=== PATIENT | female | born 1960 | race Caucasian/White ===

== ENCOUNTER 2017-03-30 18:18 | Emergency (ER) | payer OTHER, MEDICAID ==
[~2017-03-30] VITALS: Ht 170.2 cm; Wt 120.2 kg
[~2017-03-30 18:18] MED LIST: ALBUTEROL-200 PUFFS/ IH; ALBUTEROL2.5 MG/NEB IN; BENZONATATE100 MG PO; CEPHALEXIN MON500 MG PO; CIPRO 500MG TA500 MG PO; DOXYCYCLINE HY100 M1 PO; ELIMITE 5%60 GM/TUBE EX; ETODOLAC400 MG PO; FIORICET 325 MG1 TAB; FLEXERIL10 MG PO; HYDROCHLOROTH12.5 M1 PO; HYDROCORTISONE2.51 TP; HYDROXYZINE PAM50 MG PO; IBU-8800 MG PO; KEFLEX 500MG.500 MG PO; LORTAB 5/500 501 TAB PO; MEDROL 4MG. DOSE4 MG PO; MULTIVITAMIN1 TAB PO; NAPROSYN500 M1 PO; NAPROXEN SODIU500 MG PO; PREDNISONE 10MG10 MG PO; PROPRANOLOL HCL60 M1 PO; PROPRANOLOL HYD60 M1 PO; PYRIDIATE200 MG PO; PYRIDIUM 200MG200 MG PO; SEPTRA DS 800 M1 TAB PO; SUMATRIPTAN SU100 M1 PO; SUMATRIPTAN SU100 MG PO; TYLENOL W/CODEI1 TA2 PO; VALIUM 10MG TAB10 MG PO; VISTARIL25 M1 PO; VOLTAREN75 MG PO; ZANTAC 150150 MG PO
--- OUTSIDE RECORDS SUMMARY | 2017-03-30 18:59 | External Medical Summary Rpt ---
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 03 93 ME 50 06 06 14 7 RI 88 RI Ac TR 11 -0 -0 .0 TE 67 SH ti ON 10 9- 9- 00 58 ER ve ID 33 20 20 AI AZ 40 11 11 D RI OL 1 PH CH E AR AR 50 MA D 0 CY MG 03 TA 93 BL 8 ET # 03 93 64 05 05 5 15 20 RI 88 MO Ac 45 -2 -2 .0 TE 43 SE ti 50 3- 3- 00 89 S ve [address] 39 11 11 D EP 4 PH HE AR N MA A CY 03 93 8 # 03 93 HY 67 05 05 5 90 30 RI [address] 40 -2 -2 .0 TE 43 SE ti OX 50 3- 3- 00 93 S ve YZ [address] IN 71 11 11 D EP E 0 PH HE HC AR N L MA A 50 CY MG 03 93 TA 8 BL # ET 03 93 UT 23 05 05 5 30 30 RI 88 MO Ac OP 15 -2 -2 .0 TE 43 SE ti RA 50 3- 3- 00 94 S ve NO [address] LO 21 11 11 D EP L 0 PH HE 40 AR N MA A MG CY TA 03 BL 93 ET 8 # 03 93 RA 00 05 05 11 60 30 RI 88 MO Ac NI 17 -2 -2 .0 TE 43 SE ti TI 24 3- 3- 00 97 S ve DI [address] NE 74 11 11 D EP 9 PH HE 15 AR N 0 MA A MG CY TA 03 BL 93 ET 8 # 03 93 FL 50 05 05 2 30 30 RI 88 MO Ac UO 11 -2 -2 .0 TE 43 SE ti XE 10 3- 3- 00 91 S ve TI [address] NE 70 11 11 D EP 1 PH HE HC AR N L MA A 10 CY MG 03 93 CA 8 PS # UL 03 E 93 00 10 05 3 9. 30 RI 85 EN Ac 09 -0 -0 00 TE 23 GL ti 30 1- 3- 0 75 AN ve 22 20 20 AI D 49 10 11 D SH 0 PH AR AR I MA L CY 03 93 8 # 03 93 RA 00 10 04 5 60 30 RI 85 EN Ac NI 17 -0 -2 .0 TE 23 GL ti TI 24 1- 5- 00 60 AN ve DI 35 20 20 AI D NE 74 10 11 D SH 9 PH AR 15 AR I 0 MA L MG CY TA 03 BL 93 ET 8 # 03 93 59 10 04 5 8. 25 RI 85 EN Ac 31 -0 -2 50 TE 23 GL ti 00 1- 5- 0 62 AN ve 57 20 20 AI D 92 10 11 D SH 0 PH AR AR I MA L CY 03 93 8 # 03 93 UT 23 10 04 5 30 30 RI 85 EN Ac OP 15 -0 -2 .0 TE 23 GL ti RA 50 1- 5- 00 74 AN ve NO 11 20 20 AI D LO 21 10 11 D SH L 0 PH AR 40 AR I MA L MG CY TA 03 BL 93 ET 8 # 03 93 FU 63 02 04 1 30 30 RI 87 EN Ac RO 30 -1 -2 .0 TE 13 GL ti SE 40 8- 5- 00 03 AN ve WI 62 20 20 AI D DE 41 11 11 D SH 0 PH AR 20 AR I MA L MG CY TA 03 BL 93 ET 8 # 03 93 PE 00 04 04 5 59 1 RI 88 EN Ac RM 47 -2 -2 .0 TE 07 GL ti ET 25 5- 5- 00 00 AN ve HR 24 20 20 AI D IN 26 11 11 D SH 7 PH AR 1% AR I MA L LO CY TI ON 03 93 8 # 03 93 HY 67 10 04 5 90 30 RI [address] 40 -0 -2 .0 TE 23 GL ti OX 50 1- 5- 00 10 AN ve YZ 57 20 20 AI D IN 71 10 11 D SH E 0 PH AR HC AR I L MA L 50 CY MG 03 93 TA 8 BL # ET 03 93 AL 00 06 04 9 18 30 YO 21 WR Ac BU 48 -2 -1 0. UR 55 IG ti TE 79 1- 8- 00 8 HT ve RO 50 20 20 0 PH L 16 10 11 AR AR ERNST 0 MA DY L CY C 2. 5 MG /3 ML SO LN PE 00 02 03 59 1 RI 87 EN Ac RM 47 -2 -2 .0 TE 64 GL ti ET 25 5- 4- 00 60 AN ve HR 24 20 20 AI D IN 26 11 11 D SH 7 PH AR 1% AR I MA L LO CY TI ON 03 93 8 # 03 93 HY 00 01 03 2 30 10 RI [address] 16 -2 -2 .0 TE 64 SE ti OC 80 5- 4- 00 58 S ve OR [address] TI 03 11 11 D EP SO 1 PH HE NE AR N MA A 2. CY 5% 03 CR 93 EA 8 M # 03 93 CY 00 03 03 30 10 RI 87 EN Ac CL 37 -1 -1 .0 TE 56 GL ti OB 80 8- 8- 00 80 AN ve EN 75 20 20 AI D ZA 11 11 11 D SH UT 0 PH AR IN AR I E MA L 10 CY MG 03 93 TA 8 BL # ET 03 93 FL 00 03 03 2 1. 1 RI 87 EN Ac UC 17 -1 -1 00 TE 56 GL ti ON 25 8- 8- 0 81 AN ve AZ 41 20 20 AI D OL 21 11 11 D SH E 1 PH AR 15 AR I 0 MA L MG CY TA 03 BL 93 ET 8 # 03 93 AB 00 02 02 2. 10 RI 87 WR Ac RE 76 -2 -2 00 TE 15 IG ti VA 60 1- 1- 0 91 HT ve 80 20 20 AI 10 15 11 11 D AR % 5 PH DY CR AR C EA MA M CY 03 93 8 # 03 93 TE 00 02 02 45 7 RI 87 EN Ac RC 59 -1 -1 .0 TE 13 GL ti ON 13 8- 8- 00 02 AN ve AZ 19 20 20 AI D OL 68 11 11 D SH E 9 PH AR 0. AR I 4% MA L CY CR EA 03 M 93 8 # 03 93 FU 63 02 02 1 30 30 RI 87 EN Ac RO 30 -1 -1 .0 TE 13 GL ti SE 40 8- 8- 00 03 AN ve WI 62 20 20 AI D DE 41 11 11 D SH 0 PH AR 20 AR I MA L MG CY TA 03 BL 93 ET 8 # 03 93 PE 00 02 02 2 59 1 RI 87 RI Ac RM 47 -1 -1 .0 TE 13 SH ti ET 25 8- 8- 00 10 ER ve HR 24 20 20 AI IN 26 11 11 D RI 7 PH CH 1% AR AR MA D LO CY TI ON 03 93 8 # 03 93 AL 00 06 02 9 18 30 YO 21 WR Ac BU 48 -2 -1 0. UR 55 IG ti TE 79 1- 6- 00 8 HT ve RO 50 20 20 0 PH L 16 10 11 AR AR ERNST 0 MA DY L CY C 2. 5 MG /3 ML SO LN HY 67 10 01 5 90 30 RI [address] 40 -0 -2 .0 TE 23 GL ti OX 50 1- 1- 00 10 AN ve YZ 57 20 20 AI D IN 71 10 11 D SH E 0 PH AR HC AR I L MA L 50 CY MG 03 93 TA 8 BL # ET 03 93 RA 53 10 01 5 60 30 RI 85 EN Ac NI 74 -0 -2 .0 TE 23 GL ti TI 60 1- 1- 00 60 AN ve DI 25 20 20 AI D NE 36 10 11 D SH 0 PH AR 15 AR I 0 MA L MG CY TA 03 BL 93 ET 8 # 03 93 59 10 01 5 8. 25 RI 85 EN Ac 31 -0 -2 50 TE 23 GL ti 00 1- 1- 0 62 AN ve 57 20 20 AI D 92 10 11 D SH 0 PH AR AR I MA L CY 03 93 8 # 03 93 UT 50 10 01 5 30 30 RI 85 EN Ac OP 11 -0 -2 .0 TE 23 GL ti RA 10 1- 1- 00 74 AN ve NO 46 20 20 AI D LO 90 10 11 D SH L 3 PH AR 40 AR I MA L MG CY TA 03 BL 93 ET 8 # 03 93 00 10 01 3 9. 30 RI 85 EN Ac 09 -0 -2 00 TE 23 GL ti 30 1- 1- 0 75 AN ve 22 20 20 AI D 49 10 11 D SH 0 PH AR AR I MA L CY 03 93 8 # 03 93 SM 49 11 01 3 59 1 RI 85 RI Ac 34 -2 -2 .0 TE 94 SH ti LI 80 2- 1- 00 41 ER ve CE 46 20 20 AI 03 10 11 D RI TR 4 PH CH EA AR AR TM MA D EN CY T PE 03 RM 93 ET 8 HR # IN 03 93 CE 00 01 01 40 10 RI 86 WE Ac PH 14 -2 -2 .0 TE 74 HR ti AL 39 1- 1- 00 29 MA ve EX 89 20 20 AI N IN 70 11 11 D II 1 PH I 50 AR WI 0 MA LL MG CY IA M CA 03 E PS 93 UL 8 E # 03 93 HY 00 01 01 28 7 RI [address] 16 -2 -2 .3 TE 74 HR ti OC 80 1- 1- 50 30 MA ve OR 14 20 20 AI N TI 63 11 11 D II SO 0 PH I NE AR WI MA LL 2. CY IA 5% M 03 E OI 93 NT 8 ME # NT 03 93 SM 49 11 01 3 59 1 RI 85 RI Ac 34 -2 -0 .0 TE 94 SH ti LI 80 2- 3- 00 41 ER ve CE 46 20 20 AI 03 10 11 D RI TR 4 PH CH EA AR AR TM MA D EN CY T PE 03 RM 93 ET 8 HR # IN 03 93 AL 00 06 12 9 18 30 YO 21 WR Ac BU 48 -2 -2 0. UR 55 IG ti TE 79 1- 0- 00 8 HT ve RO 50 20 20 0 PH L 16 10 10 AR AR ERNST 0 MA DY L CY C 2. 5 MG /3 ML SO LN 60 12 12 12 3 RI 86 EN Ac 25 -1 -1 0. TE 18 GL ti 80 0- 0- 00 57 AN ve 23 20 20 0 AI D 91 10 10 D SH 6 PH AR AR I MA L CY 03 93 8 # 03 93 AZ 00 12 12 6. 5 RI 86 EN Ac IT 78 -1 -1 00 TE 18 GL ti HR 11 0- 0- 0 58 AN ve OM 49 20 20 AI D YC 66 10 10 D SH IN 8 PH AR AR I 25 MA L 0 CY MG 03 TA 93 BL 8 ET # 03 93 FL 00 10 11 1 1. 1 RI 85 EN Ac UC 17 -0 -2 00 TE 34 GL ti ON 25 7- 7- 0 38 AN ve AZ 41 20 20 AI D OL 21 10 10 D SH E 1 PH AR 15 AR I 0 MA L MG CY TA 03 BL 93 ET 8 # 03 93 SM 49 11 11 3 59 1 RI 85 RI Ac 34 -2 -2 .0 TE 94 SH ti LI 80 2- 7- 00 41 ER ve CE 46 20 20 AI 03 10 10 D RI TR 4 PH CH EA AR AR TM MA D EN CY T PE 03 RM 93 ET 8 HR # IN 03 93 SM 49 11 11 3 59 1 RI 85 RI Ac 34 -2 -2 .0 TE 94 SH ti LI 80 2- 3- 00 41 ER ve CE 46 20 20 AI 03 10 10 D RI TR 4 PH CH EA AR AR TM MA D EN CY T PE 03 RM 93 ET 8 HR # IN 03 93 HY 68 10 11 5 90 30 RI [address] 46 -0 -0 .0 TE 23 GL ti OX 20 1- 8- 00 10 AN ve YZ 36 20 20 AI D IN 20 10 10 D SH E 1 PH AR HC AR I L MA L 50 CY MG 03 93 TA 8 BL # ET 03 93 RA 00 10 11 5 60 30 RI 85 EN Ac NI 17 -0 -0 .0 TE 23 GL ti TI 24 1- 8- 00 60 AN ve DI 35 20 20 AI D NE 74 10 10 D SH 9 PH AR 15 AR I 0 MA L MG CY TA 03 BL 93 ET 8 # 03 93 59 10 11 5 8. 25 RI 85 EN Ac 31 -0 -0 50 TE 23 GL ti 00 1- 8- 0 62 AN ve 57 20 20 AI D 92 10 10 D SH 0 PH AR AR I MA L CY 03 93 8 # 03 93 UT 50 10 11 5 30 30 RI 85 EN Ac OP 11 -0 -0 .0 TE 23 GL ti RA 10 1- 8- 00 74 AN ve NO 46 20 20 AI D LO 90 10 10 D SH L 3 PH AR 40 AR I MA L MG CY TA 03 BL 93 ET 8 # 03 93 00 10 11 3 9. 30 RI 85 EN Ac 09 -0 -0 00 TE 23 GL ti 30 1- 8- 0 75 AN ve 22 20 20 AI D 49 10 10 D SH 0 PH AR AR I MA L CY 03 93 8 # 03 93 AL 00 06 10 9 18 30 YO 21 WR Ac BU 48 -2 -1 0. UR 55 IG ti TE 79 1- 9- 00 8 HT ve RO 50 20 20 0 PH L 16 10 10 AR AR ERNST 0 MA DY L CY C 2. 5 MG /3 ML SO LN FL 00 10 10 1 1. 1 RI 85 EN Ac UC 17 -0 -1 00 TE 34 GL ti ON 25 7- 1- 0 38 AN ve AZ 41 20 20 AI D OL 21 10 10 D SH E 1 PH AR 15 AR I 0 MA L MG CY TA 03 BL 93 ET 8 # 03 93 HY 68 10 10 5 90 30 RI [address] 46 -0 -0 .0 TE 23 GL ti OX 20 1- 1- 00 10 AN ve YZ 36 20 20 AI D IN 20 10 10 D SH E 1 PH AR HC AR I L MA L 50 CY MG 03 93 TA 8 BL # ET 03 93 RA 00 10 10 5 60 30 RI 85 EN Ac NI 17 -0 -0 .0 TE 23 GL ti TI 24 1- 1- 00 60 AN ve DI 35 20 20 AI D NE 74 10 10 D SH 9 PH AR 15 AR I 0 MA L MG CY TA 03 BL 93 ET 8 # 03 93 59 10 10 5 8. 25 RI 85 EN Ac 31 -0 -0 50 TE 23 GL ti 00 1- 1- 0 62 AN ve 57 20 20 AI D 92 10 10 D SH 0 PH AR AR I MA L CY 03 93 8 # 03 93 UT 50 10 10 5 30 30 RI 85 EN Ac OP 11 -0 -0 .0 TE 23 GL ti RA 10 1- 1- 00 74 AN ve NO 46 20 20 AI D LO 90 10 10 D SH L 3 PH AR 40 AR I MA L MG CY TA 03 BL 93 ET 8 # 03 93 00 03 09 1 9. 30 RI 82 EN Ac 09 -2 -2 00 TE 72 GL ti 30 6- 3- 0 39 AN ve 22 20 20 AI D 49 10 10 D SH 0 PH AR AR I MA L CY 03 93 8 # 03 93 AC 00 09 09 0 24 3 CL 22 SC Ac ET 40 -0 -0 .0 IN 27 HU ti AM 60 7- 7- 00 IC 10 LS ve IN 48 20 20 TA OP 40 10 10 PH D HE 1 AR CA N- MA MP CO CY BE D LL #3 LL K C TA BL ET AC 00 09 09 24 2 RI 84 SC Ac ET 60 -0 -0 .0 TE 84 HU ti AM 32 3- 3- 00 65 LS ve IN 33 20 20 AI TA OP 83 10 10 D D HE 2 PH CA N- AR MP CO MA BE D CY LL #3 K 03 TA 93 BL 8 ET # 03 93 59 08 08 5 8. 30 RI 84 EN Ac 31 -2 -2 50 TE 72 GL ti 00 6- 6- 0 85 AN ve 57 20 20 AI D 92 10 10 D SH 0 PH AR AR I MA L CY 03 93 8 # 03 93 RA 00 08 08 5 60 30 RI 84 EN Ac NI 17 -2 -2 .0 TE 72 GL ti TI 24 6- 6- 00 86 AN ve DI 35 20 20 AI D NE 74 10 10 D SH 9 PH AR 15 AR I 0 MA L MG CY TA 03 BL 93 ET 8 # 03 93 HY 67 08 08 3 30 10 [address] 40 -2 -2 .0 TE 72 GL ti OX 50 6- 6- 00 89 AN ve YZ 57 20 20 AI D IN 71 10 10 D SH E 0 PH AR HC AR I L MA L 50 CY MG 03 93 TA 8 BL # ET 03 93 FL 00 08 08 2. 2 RI 84 EN Ac UC 17 -2 -2 00 TE 72 GL ti ON 25 6- 6- 0 93 AN ve AZ 41 20 20 AI D OL 21 10 10 D SH E 1 PH AR 15 AR I 0 MA L MG CY TA 03 BL 93 ET 8 # 03 93 AL 00 06 08 9 18 30 YO 21 WR Ac BU 48 -2 -2 0. UR 55 IG ti TE 79 1- 6- 00 8 HT ve RO 50 20 20 0 PH L 16 10 10 AR AR ERNST 0 MA DY L CY C 2. 5 MG /3 ML SO LN PE 00 08 08 59 1 RI 84 EN Ac RM 47 -0 -1 .0 TE 48 GL ti ET 25 9- 2- 00 95 AN ve HR 24 20 20 AI D IN 26 10 10 D SH 7 PH AR 1% AR I MA L LO CY TI ON 03 93 8 # 03 93 00 03 08 1 9. 30 RI 82 EN Ac 09 -2 -1 00 TE 72 GL ti 30 6- 0- 0 39 AN ve 22 20 20 AI D 49 10 10 D SH 0 PH AR AR I MA L CY 03 93 8 # 03 93 UT 50 05 08 2 30 30 RI 83 RI Ac OP 11 -1 -1 .0 TE 33 SH ti RA 10 1- 0- 00 92 ER ve NO 46 20 20 AI LO 90 10 10 D RI L 3 PH CH 40 AR AR MA D MG CY TA 03 BL 93 ET 8 # 03 93 PE 00 08 08 59 1 RI 84 EN Ac RM 47 -0 -0 .0 TE 48 GL ti ET 25 9- 9- 00 95 AN ve HR 24 20 20 AI D IN 26 10 10 D SH 7 PH AR 1% AR I MA L LO CY TI ON 03 93 8 # 03 93 PE 00 07 07 1 59 1 RI 79 EN Ac RM 47 -3 -2 .0 TE 39 GL ti ET 25 1 8- 00 44 AN ve HR 24 20 20 AI D IN 26 09 10 D SH 7 PH AR 1% AR I MA L LO CY TI ON 03 93 8 # 03 93 UT 50 05 07 2 30 30 RI 83 RI Ac OP 11 -1 -1 .0 TE 33 SH ti RA 10 1- 3- 00 92 ER ve NO 46 20 20 AI LO 90 10 10 D RI L 3 PH CH 40 AR AR MA D MG CY TA 03 BL 93 ET 8 # 03 93 RA 00 03 07 5 60 30 RI 82 EN Ac NI 17 -2 -1 .0 TE 72 GL ti TI 24 6- 3- 00 45 AN ve DI 35 20 20 AI D NE 74 10 10 D SH 9 PH AR 15 AR I 0 MA L MG CY TA 03 BL 93 ET 8 # 03 93 00 01 07 2 9. 30 RI 82 EN Ac 09 -1 -1 00 TE 63 GL ti 30 5- 3- 0 53 AN ve 22 20 20 AI D 49 10 10 D SH 0 PH AR AR I MA L CY 03 93 8 # 03 93 16 06 06 9 18 30 YO 21 WR Ac 25 -2 -2 0. UR 55 IG ti 20 1- 1- 00 8 HT ve 09 20 20 0 PH 76 10 10 AR AR 6 MA DY CY C UT 50 05 05 2 30 30 RI 83 RI Ac OP 11 -1 -1 .0 TE 33 SH ti RA 10 1- 1- 00 92 ER ve NO 46 20 20 AI LO 90 10 10 D RI L 3 PH CH 40 AR AR MA D MG CY TA 03 BL 93 ET 8 # 03 93 DE 51 04 04 60 30 RI 83 EN Ac SO 67 -2 -2 .0 TE 10 GL ti XI 21 3- 3- 00 89 AN ve ME 26 20 20 AI D TA 10 10 10 D SH SO 3 PH AR NE AR I MA L 0. CY 05 % 03 GE 93 L 8 # 03 93 SE 13 04 04 5 30 30 RI 83 EN Ac -N 92 -2 -2 .0 TE 10 GL ti AT 50 3- 3- 00 88 AN ve AL 11 20 20 AI D 60 10 10 D SH 19 1 PH AR AR I TA MA L BL CY ET 03 93 8 # 03 93 59 04 04 5 8. 25 RI 83 EN Ac 31 -2 -2 50 TE 10 GL ti 00 3- 3- 0 87 AN ve 57 20 20 AI D 92 10 10 D SH 0 PH AR AR I MA L CY 03 93 8 # 03 93 RA 00 03 03 5 60 30 RI 82 EN Ac NI 17 -2 -2 .0 TE 72 GL ti TI 24 6- 6- 00 45 AN ve DI 35 20 20 AI D NE 74 10 10 D SH 9 PH AR 15 AR I 0 MA L MG CY TA 03 BL 93 ET 8 # 03 93 UT 00 03 03 12 3 RI 82 EN Ac OM 78 -2 -2 .0 TE 72 GL ti ET 11 6- 6- 00 43 AN ve FORTE 83 20 20 AI D ZI 00 10 10 D SH NE 1 PH AR AR I 25 MA L CY MG 03 TA 93 BL 8 ET # 03 93 UT 50 03 03 5 30 30 RI 82 EN Ac OP 11 -2 -2 .0 TE 72 GL ti RA 10 6- 6- 00 42 AN ve NO 46 20 20 AI D LO 90 10 10 D SH L 3 PH AR 40 AR I MA L MG CY TA 03 BL 93 ET 8 # 03 93 ZO 00 03 03 1 30 30 RI 82 RI Ac LP 09 -2 -2 .0 TE 64 SH ti ID 30 2- 2- 00 23 ER ve EM 07 20 20 AI 30 10 10 D RI TA 1 PH CH RT AR AR RA MA D TE CY 5 03 MG 93 8 TA # BL 03 ET 93 16 04 03 6 18 30 YO 18 WR Ac 25 -0 -2 0. UR 65 IG ti 20 6- 2- 00 6 HT ve 09 20 20 0 PH 76 09 10 AR AR 6 MA DY CY C SE 13 01 03 5 30 30 RI 81 EN Ac -N 92 -1 -1 .0 TE 73 GL ti AT 50 5- 9- 00 17 AN ve AL 11 20 20 AI D 60 10 10 D SH 19 1 PH AR AR I TA MA L BL CY ET 03 93 8 # 03 93 HY 68 01 03 3 60 20 RI [address] 46 -1 -1 .0 TE 75 GL ti OX 20 5- 9- 00 30 AN ve YZ 36 20 20 AI D IN 20 10 10 D SH E 1 PH AR HC AR I L MA L 50 CY MG 03 93 TA 8 BL # ET 03 93 59 08 03 2 8. 30 RI 80 MO Ac 31 -1 -0 50 TE 99 SE ti 00 7- 5- 0 67 S ve [address] 92 09 10 D EP 0 PH HE AR N MA A CY 03 93 8 # 03 93 HY 68 01 02 01 60 20 RI [address] 46 -1 -2 .0 TE 75 t ti OX 20 5- 6- 00 30 Av ve YZ 36 20 20 AI ai IN 20 10 10 D la E 1 PH bl HC AR e L M 50 #3 93 MG 8 TA BL ET PE 45 01 02 01 60 1 RI 81 No Ac RM 80 -2 -2 .0 TE 80 t ti ET 20 1- 6- 00 91 Av ve HR 26 20 20 AI ai IN 93 10 10 D la 7 PH bl 5% AR e M CR #3 EA 93 M 8 00 01 02 00 9. 30 RI 81 No Ac 09 -1 -2 00 TE 73 t ti 30 5- 6- 0 49 Av ve 22 20 20 AI ai 49 10 10 D la 0 PH bl AR e M #3 93 8 RA 00 01 02 01 60 30 RI 81 No Ac NI 17 -1 -2 .0 TE 73 t ti TI 24 5- 6- 00 29 Av ve DI 35 20 20 AI ai NE 74 10 10 D la 9 PH bl 15 AR e 0 M MG #3 93 TA 8 BL ET SE 13 01 01 00 30 30 RI 81 No Ac -N 92 -1 -2 .0 TE 73 t ti AT 50 5- 8- 00 17 Av ve AL 11 20 20 AI ai 60 10 10 D la 19 1 PH bl AR e TA M BL #3 ET 93 8 CY 00 01 01 00 15 5 RI 81 SO Ac CL 37 -1 -2 .0 TE 77 KA ti OB 80 9- 8- 00 48 N ve EN 75 20 20 AI BA ZA 11 10 10 D BA UT 0 PH TU IN AR ND E M E 10 #3 O 93 MG 8 TA BL ET 16 04 01 04 18 30 YO 18 WR Ac 25 -0 -2 0. UR 65 IG ti 20 6- 8- 00 6 HT ve 09 20 20 0 PH 76 09 10 AR AR 6 MA DY CY C HY 68 01 01 00 60 20 RI [address] 46 -1 -2 .0 TE 75 t ti OX 20 5- 8- 00 30 Av ve YZ 36 20 20 AI ai IN 20 10 10 D la E 1 PH bl HC AR e L M 50 #3 93 MG 8 TA BL ET RA 00 01 01 00 60 30 RI 81 No Ac NI 17 -1 -2 .0 TE 73 t ti TI 24 5- 8- 00 29 Av ve DI 35 20 20 AI ai NE 74 10 10 D la 9 PH bl 15 AR e 0 M MG #3 93 TA 8 BL ET PE 45 01 01 00 60 1 RI 81 SO Ac RM 80 -1 -2 .0 TE 77 KA ti ET 20 8 49 N ve HR 26 20 20 AI BA IN 93 10 10 D BA 7 PH TU 5% AR ND M E CR #3 O EA 93 M 8 IB 53 01 01 00 15 5 RI 81 SO Ac UP 74 -1 -2 .0 TE 77 KA ti RO 60 - 8- 00 47 N ve FE 46 20 20 AI BA N 60 10 10 D BA 80 5 PH TU 0 AR ND MG M E #3 O TA 93 BL 8 ET 00 01 01 00 30 7 RI 81 WR Ac 60 -2 -2 .0 TE 82 IG ti 35 2- 8- 00 63 HT ve 46 20 20 AI 82 10 10 D AR 8 PH DY AR C M #3 93 8 UT 00 01 01 00 6. 30 RI 81 No Ac OV 08 -1 -2 70 TE 73 t ti EN 51 5- 8- 0 31 Av ve TI 13 20 20 AI ai L 20 10 10 D la HF 1 PH bl A AR e 90 M #3 MC 93 G 8 IN FORTE LE R 00 01 01 00 12 2 RI 81 SO Ac 40 -1 -2 .0 TE 77 KA ti 60 9- 8- 00 46 N ve 35 20 20 AI BA 70 10 10 D BA 5 PH TU AR ND M E #3 O 93 8 UT 50 01 00 30 30 RI 81 No Ac OP 11 -1 -2 .0 TE 73 t ti RA 10 5- 8- 00 22 Av ve NO 46 20 20 AI ai LO 90 10 10 D la L 3 PH bl 40 AR e M MG #3 93 TA 8 BL ET FL 00 01 01 00 2. 3 RI 81 No Ac UC 17 -2 -2 00 TE 82 t ti ON 25 2- 8- 0 64 Av ve AZ 41 20 20 AI ai OL 21 10 10 D la E 1 PH bl 15 AR e 0 M MG #3 93 TA 8 BL ET 00 01 01 00 6. 30 RI 76 WR Ac 09 -0 -1 00 TE 58 IG ti 30 7- 4- 0 39 HT ve 22 20 20 AI 49 09 10 D AR 0 PH DY AR C M #3 93 8 AL 00 04 12 03 18 30 YO 18 WR Ac BU 48 -0 -0 0. UR 65 IG ti TE 79 6- 3- 00 6 HT ve RO 50 20 20 0 PH L 16 09 09 AR AR ERNST 0 MA DY L CY C 2. 5 MG /3 ML SO LN FL 00 11 12 00 1. 1 RI 80 No Ac UC 17 -2 -0 00 TE 97 t ti ON 25 0- 3- 0 42 Av ve AZ 41 20 20 AI ai OL 21 09 09 D la E 1 PH bl 15 AR e 0 M MG #3 93 TA 8 BL ET NA 00 11 12 00 30 15 RI 80 No Ac UT 09 -2 -0 .0 TE 97 t ti OX 30 0- 3- 00 40 Av ve EN 14 20 20 AI ai 90 09 09 D la 50 1 PH bl 0 AR e MG M #3 TA 93 BL 8 ET ERNST 00 11 12 00 14 7 RI 80 No Ac LF 60 -2 -0 .0 TE 97 t ti AM 35 0- 3- 00 41 Av ve ET 78 20 20 AI ai HO 12 09 09 D la XA 8 PH bl ZO AR e LE M -T #3 MP 93 8 DS TA BL ET 59 08 11 00 8. 30 RI 79 MO Ac 31 -1 -1 50 TE 64 SE ti 00 7- 9- 0 57 S ve [address] 92 09 09 D EP 0 PH HE AR N M A #3 93 8 RA 00 08 11 00 60 30 RI 79 MO Ac NI 17 -1 -1 .0 TE 64 SE ti TI 24 7- 9- 00 58 S ve DI [address] NE 74 09 09 D EP 9 PH HE 15 AR N 0 M A MG #3 93 TA 8 BL ET ZO 00 08 11 01 14 14 RI 79 RI Ac LP 09 -0 -1 .0 TE 61 SH ti ID 30 7- 9- 00 96 ER ve EM 07 20 20 AI 30 09 09 D RI TA 1 PH CH RT AR AR RA M D TE #3 5 93 8 MG TA BL ET UT 50 08 11 01 30 30 RI 79 RI Ac OP 11 -1 -1 .0 TE 59 SH ti RA 10 7- 9- 00 12 ER ve NO 46 20 20 AI LO 90 09 09 D RI L 3 PH CH 40 AR AR M D MG #3 93 TA 8 BL ET 00 07 11 01 30 30 RI 79 RI Ac 03 -0 -1 .0 TE 20 SH ti 70 3- 9- 00 57 ER ve 24 20 20 AI 13 09 09 D RI 0 PH CH AR AR M D #3 93 8 16 04 10 02 18 30 YO 18 WR Ac 25 -0 -0 0. UR 65 IG ti 20 6- 8- 00 6 HT ve 09 20 20 0 PH 76 09 09 AR AR 6 MA DY CY C ERNST 00 09 10 00 20 10 RI 80 No Ac LF 60 -2 -0 .0 TE 14 t ti AM 35 5- 8- 00 75 Av ve ET 78 20 20 AI ai HO 12 09 09 D la XA 8 PH bl ZO AR e LE M -T #3 MP 93 8 DS TA BL ET 60 09 10 00 12 4 RI 80 No Ac 25 -2 -0 0. TE 14 t ti 80 5- 8- 00 76 Av ve 23 20 20 0 AI ai 91 09 09 D la 6 PH bl AR e M #3 93 8 UT 50 08 08 00 30 30 RI 79 RI Ac OP 11 -1 -2 .0 TE 59 SH ti RA 10 7- 7- 00 12 ER ve NO 46 20 20 AI LO 90 09 09 D RI L 3 PH CH 40 AR AR M D MG #3 93 TA 8 BL ET 00 05 08 02 9. 30 RI 78 WR Ac 09 -0 -2 00 TE 27 IG ti 30 4- 7- 0 06 HT ve 22 20 20 AI 49 09 09 D AR 0 PH DY AR C M #3 93 8 FU 00 08 08 00 30 30 RI 79 No Ac RO 37 -0 -2 .0 TE 61 t ti SE 80 7- 7- 00 97 Av ve WI 21 20 20 AI ai DE 61 09 09 D la 0 PH bl 40 AR e M MG #3 93 TA 8 BL ET RA 00 03 08 02 60 30 RI 77 RI Ac NI 17 -2 -2 .0 TE 69 SH ti TI 24 5- 7- 00 79 ER ve DI 35 20 20 AI NE 74 09 09 D RI 9 PH CH 15 AR AR 0 M D MG #3 93 TA 8 BL ET 59 03 08 02 8. 30 RI 77 WR Ac 31 -1 -2 50 TE 57 IG ti 00 7- 7- 0 24 HT ve 57 20 20 AI 92 09 09 D AR 0 PH DY AR C M #3 93 8 59 08 08 00 8. 25 RI 79 No Ac 31 -1 -2 50 TE 61 t ti 00 9- 7- 0 98 Av ve 57 20 20 AI ai 92 09 09 D la 0 PH bl AR e M #3 93 8 00 07 08 00 30 30 RI 79 RI Ac 03 -0 -2 .0 TE 20 SH ti 70 3- 7- 00 57 ER ve 24 20 20 AI 13 09 09 D RI 0 PH CH AR AR M D #3 93 8 ZO 00 08 08 00 14 14 RI 79 RI Ac LP 09 -0 -2 .0 TE 61 SH ti ID 30 7- 7- 00 96 ER ve EM 07 20 20 AI 30 09 09 D RI TA 1 PH CH RT AR AR RA M D TE #3 5 93 8 MG TA BL ET PA 00 03 08 02 30 30 RI 77 RI Ac RO 09 -2 -2 .0 TE 69 SH ti XE 37 5- 7- 00 77 ER ve TI 11 20 20 AI NE 59 09 09 D RI 8 PH CH HC AR AR L M D 20 #3 93 MG 8 TA BL ET PE 00 07 08 00 59 1 RI 79 No Ac RM 47 -3 -1 .0 TE 39 t ti ET 25 1- 3- 00 44 Av ve HR 24 20 20 AI ai IN 26 09 09 D la 7 PH bl 1% AR e M LO #3 TI 93 ON 8 RA 00 03 07 02 60 30 RI 77 RI Ac NI 17 -2 -1 .0 TE 69 SH ti TI 24 5- 6- 00 79 ER ve DI 35 20 20 AI NE 74 09 09 D RI 9 PH CH 15 AR AR 0 M D MG #3 93 TA 8 BL ET 59 03 07 02 8. 30 RI 77 WR Ac 31 -1 -1 50 TE 57 IG ti 00 7- 6- 0 24 HT ve 57 20 20 AI 92 09 09 D AR 0 PH DY AR C M #3 93 8 00 07 07 00 30 30 RI 79 RI Ac 03 -0 -1 .0 TE 05 SH ti 70 3- 6- 00 49 ER ve 24 20 20 AI 13 09 09 D RI 0 PH CH AR AR M D #3 93 8 PA 00 03 07 02 30 30 RI 77 RI Ac RO 09 -2 -1 .0 TE 69 SH ti XE 37 5- 6- 00 77 ER ve TI 11 20 20 AI NE 59 09 09 D RI 8 PH CH HC AR AR L M D 20 #3 93 MG 8 TA BL ET 00 05 07 02 9. 30 RI 78 WR Ac 09 -0 -1 00 TE 27 IG ti 30 4- 6- 0 06 HT ve 22 20 20 AI 49 09 09 D AR 0 PH DY AR C M #3 93 8 00 05 06 01 9. 30 RI 78 WR Ac 09 -0 -1 00 TE 27 IG ti 30 4- 8- 0 06 HT ve 22 20 20 AI 49 09 09 D AR 0 PH DY AR C M #3 93 8 59 03 06 01 8. 30 RI 77 WR Ac 31 -1 -1 50 TE 57 IG ti 00 7- 8- 0 24 HT ve 57 20 20 AI 92 09 09 D AR 0 PH DY AR C M #3 93 8 RA 00 03 06 01 60 30 RI 77 RI Ac NI 17 -2 -0 .0 TE 69 SH ti TI 24 5- 4- 00 79 ER ve DI 35 20 20 AI NE 74 09 09 D RI 9 PH CH 15 AR AR 0 M D MG #3 93 TA 8 BL ET PA 00 03 06 01 30 30 RI 77 RI Ac RO 09 -2 -0 .0 TE 69 SH ti XE 37 5- 4- 00 77 ER ve TI 11 20 20 AI NE 59 09 09 D RI 8 PH CH HC AR AR L M D 20 #3 93 MG 8 TA BL ET 00 11 06 03 30 30 RI 75 RI Ac 03 -1 -0 .0 TE 84 SH ti 70 7- 4- 00 39 ER ve 24 20 20 AI 13 08 09 D RI 0 PH CH AR AR M D #3 93 8 ERNST 00 05 05 00 20 10 RI 78 WR Ac LF 60 -0 -2 .0 TE 27 IG ti AM 35 4- 1- 00 02 HT ve ET 78 20 20 AI HO 12 09 09 D AR XA 8 PH DY ZO AR C LE M -T #3 MP 93 8 DS TA BL ET 00 05 05 00 9. 30 RI 78 WR Ac 09 -0 -2 00 TE 27 IG ti 30 4- 1- 0 06 HT ve 22 20 20 AI 49 09 09 D AR 0 PH DY AR C M #3 93 8 FL 00 05 05 00 3. 9 RI 78 WR Ac UC 17 -0 -2 00 TE 27 IG ti ON 25 4- 1- 0 04 HT ve AZ 41 20 20 AI OL 21 09 09 D AR E 1 PH DY 15 AR C 0 M MG #3 93 TA 8 BL ET 16 04 05 01 18 30 YO 18 WR Ac 25 -0 -2 0. UR 65 IG ti 20 6- 1- 00 6 HT ve 09 20 20 0 PH 76 09 09 AR AR 6 MA DY CY C AL 00 04 04 00 18 30 YO 18 WR Ac BU 48 -0 -2 0. UR 65 IG ti TE 79 6- 3- 00 6 HT ve RO 50 20 20 0 PH L 16 09 09 AR AR ERNST 0 MA DY L CY C 2. 5 MG /3 ML SO LN PA 00 03 04 00 30 30 RI 77 RI Ac RO 09 -2 -0 .0 TE 69 SH ti XE 37 5- 9- 00 77 ER ve TI 11 20 20 AI NE 59 09 09 D RI 8 PH CH HC AR AR L M D 20 #3 93 MG 8 TA BL ET TE 00 11 04 02 14 14 RI 75 RI Ac MA 37 -1 -0 .0 TE 84 SH ti ZE 84 7- 9- 00 37 ER ve PA 01 20 20 AI M 00 08 09 D RI 15 1 PH CH AR AR MG M D #3 CA 93 PS 8 UL E 00 11 04 02 30 30 RI 75 RI Ac 03 -1 -0 .0 TE 84 SH ti 70 7- 9- 00 39 ER ve 24 20 20 AI 13 08 09 D RI 0 PH CH AR AR M D #3 93 8 RA 00 03 04 00 60 30 RI 77 RI Ac NI 17 -2 -0 .0 TE 69 SH ti TI 24 5- 9- 00 79 ER ve DI 35 20 20 AI NE 74 09 09 D RI 9 PH CH 15 AR AR 0 M D MG #3 93 TA 8 BL ET 59 03 03 00 8. 30 RI 77 WR Ac 31 -1 -2 50 TE 57 IG ti 00 7- 6- 0 24 HT ve 57 20 20 AI 92 09 09 D AR 0 PH DY AR C M #3 93 8 00 01 03 01 9. 30 RI 76 RI Ac 09 -0 -2 00 TE 56 SH ti 30 7- 6- 0 90 ER ve 22 20 20 AI 49 09 09 D RI 0 PH CH AR AR M D #3 93 8 AL 00 04 02 04 18 30 YO 15 WR Ac BU 48 -0 -2 0. UR 89 IG ti TE 79 4- 6- 00 0 HT ve RO 50 20 20 0 PH L 16 08 09 AR AR ERNST 0 MA DY L CY C 2. 5 MG /3 ML SO LN TE 00 11 01 01 14 14 RI 75 RI Ac MA 37 -1 -1 .0 TE 84 SH ti ZE 84 7- 5- 00 37 ER ve PA 01 20 20 AI M 00 08 09 D RI 15 1 PH CH AR AR MG M D #3 CA 93 PS 8 UL E 00 11 01 01 30 30 RI 75 RI Ac 03 -1 -1 .0 TE 84 SH ti 70 7- 5- 00 39 ER ve 24 20 20 AI 13 08 09 D RI 0 PH CH AR AR M D #3 93 8 AL 00 04 01 03 18 30 YO 15 WR Ac BU 48 -0 -1 0. UR 89 IG ti TE 79 4- 5- 00 0 HT ve RO 50 20 20 0 PH L 16 08 09 AR AR ERNST 0 MA DY L CY C 2. 5 MG /[address] PA 00 01 01 02 30 30 RI 71 RI Ac RO 09 -2 -1 .0 TE 81 SH ti XE 37 1- 5- 00 08 ER ve TI 11 20 20 AI NE 59 08 09 D RI 8 PH [facility] AR AR L M D 20 #3 93 MG 8 TA BL ET 55 01 01 00 9. 30 RI 76 RI Ac 11 -0 -1 00 TE 56 SH ti 10 7- 5- 0 90 ER ve 73 20 20 AI 70 09 09 D RI 9 PH CH AR AR M D #3 93 8 59 07 01 00 8. 30 RI 76 WR Ac 31 -1 -1 50 TE 36 IG ti 00 5- 5- 0 98 HT ve 57 20 20 AI 92 08 09 D AR 0 PH DY AR C M #3 93 8 LO 00 11 01 01 30 30 RI 75 RI Ac RA 78 -1 -1 .0 TE 84 SH ti TA 15 7- 5- 00 40 ER ve DI 07 20 20 AI NE 70 08 09 D RI 1 PH CH 10 AR AR M D MG #3 93 TA 8 BL ET RA 00 01 01 02 60 30 RI 71 RI Ac NI 17 -2 -1 .0 TE 81 SH ti TI 24 1- 5- 00 07 ER ve DI 35 20 20 AI NE 74 08 09 D RI 9 PH CH 15 AR AR 0 M D MG #3 93 TA 8 BL ET 59 07 12 00 8. 30 RI 76 WR Ac 31 -1 -1 50 TE 19 IG ti 00 5- 8- 0 68 HT ve 57 20 20 AI 92 08 08 D AR 0 PH DY AR C M #3 93 8 00 11 12 00 30 10 RI 75 RI Ac 40 -1 -0 .0 TE 84 SH ti 62 7- 4- 00 38 ER ve 24 20 20 AI 80 08 08 D RI 1 PH CH AR AR M D #3 93 8 LO 00 11 12 00 30 30 RI 75 RI Ac RA 78 -1 -0 .0 TE 84 SH ti TA 15 7- 4- 00 40 ER ve DI 07 20 20 AI NE 70 08 08 D RI 1 PH CH 10 AR AR M D MG #3 93 TA 8 BL ET 00 11 12 00 30 30 RI 75 RI Ac 03 -1 -0 .0 TE 84 SH ti 70 7- 4- 00 39 ER ve 24 20 20 AI 13 08 08 D RI 0 PH CH AR AR M D #3 93 8 TE 00 11 12 00 14 14 RI 75 RI Ac MA 37 -1 -0 .0 TE 84 SH ti ZE 84 7- 4- 00 37 ER ve PA 01 20 20 AI M 00 08 08 D RI 15 1 PH CH AR AR MG M D #3 CA 93 PS 8 UL E PE 00 10 11 00 59 1 RI 75 No Ac RM 47 -2 -0 .0 TE 53 t ti ET 25 4- 7- 00 15 Av ve HR 24 20 20 AI ai IN 26 08 08 D la 7 PH bl 1% AR e M LO #3 TI 93 ON 8 IM 00 07 11 02 9. 30 RI 74 RI Ac IT 17 -1 -0 00 TE 14 SH ti RE 30 5- 7- 0 14 ER ve X 73 20 20 AI 10 70 08 08 D RI 0 1 PH CH MG AR AR M D TA #3 BL 93 ET 8 AL 00 04 09 02 18 30 YO 15 No Ac BU 48 -0 -2 0. UR 89 t ti TE 79 4- 6- 00 0 Av ve RO 50 20 20 0 PH ai L 16 08 08 AR la ERNST 0 MA bl L CY e 2. 5 MG /3 ML SO LN IM 00 07 09 01 9. 30 RI 74 RI Ac IT 17 -1 -1 00 TE 14 SH ti RE 30 5- 1- 0 14 ER ve X 73 20 20 AI 10 70 08 08 D RI 0 1 PH CH MG AR AR M D TA #3 BL 93 ET 8 17 07 09 01 17 30 RI 74 WR Ac 27 -1 -1 .0 TE 14 IG ti 00 5- 1- 00 20 HT ve 72 20 20 AI 10 08 08 D AR 1 PH DY AR C M #3 93 8 DO 00 08 08 00 20 10 RI 74 WI Ac XY 14 -1 -2 .0 TE 56 CK ti CY 33 7- 8- 00 95 ER ve CL 14 20 20 AI IN 20 08 08 D JE E 5 PH FF HY AR RE CL M Y AT #3 E 93 10 8 0 MG CA P ME 00 08 08 00 21 6 RI 74 WI Ac TH 60 -1 -2 .0 TE 56 CK ti YL 34 7- 8- 00 96 ER ve UT 59 20 20 AI ED 31 08 08 D JE NI 5 PH FF SO AR RE LO M Y NE #3 4 93 8 MG DO SE PK IM 00 07 08 00 9. 30 RI 74 RI Ac IT 17 -1 -1 00 TE 14 SH ti RE 30 5- 4- 0 14 ER ve X 73 20 20 AI 10 70 08 08 D RI 0 1 PH CH MG AR AR M D TA #3 BL 93 ET 8 17 07 08 00 17 30 RI 74 WR Ac 27 -1 -0 .0 TE 14 IG ti 00 5- 1- 00 20 HT ve 72 20 20 AI 10 08 08 D AR 1 PH DY AR C M #3 93 8 IM 00 06 07 00 9. 15 RI 73 RI Ac IT 17 -2 -0 00 TE 91 SH ti RE 30 7- 3- 0 21 ER ve X 73 20 20 AI 10 70 08 08 D RI 0 1 PH CH MG AR AR M D TA #3 BL 93 ET 8 00 05 06 01 10 5 RI 73 AY Ac 60 -2 -1 .0 TE 47 AR ti 35 6- 2- 00 66 AM ve 14 20 20 AI 22 08 08 D ERNST 1 PH SY AR M #3 93 8 CI 00 05 06 01 10 5 RI 73 AY Ac UT 17 -2 -1 .0 TE 47 AR ti OF 25 6- 2- 00 65 AM ve LO 31 20 20 AI XA 26 08 08 D ERNST CI 0 PH SY N AR HC M L #3 50 93 0 8 MG TA B PE 00 05 06 00 59 1 RI 73 WR Ac RM 47 -2 -1 .0 TE 52 IG ti ET 25 9- 2- 00 48 HT ve HR 24 20 20 AI IN 26 08 08 D AR 7 PH DY 1% AR C M LO #3 TI 93 ON 8 AL 00 04 06 01 18 30 YO 15 No Ac BU 48 -0 -0 0. UR 89 t ti TE 79 4- 5- 00 0 Av ve RO 50 20 20 0 PH ai L 16 08 08 AR la ERNST 0 MA bl L CY e 2. 5 MG /3 ML SO LN CI 00 05 06 00 10 5 RI 73 AY Ac UT 17 -2 -0 .0 TE 47 AR ti OF 25 6- 5- 00 65 AM ve LO 31 20 20 AI XA 26 08 08 D ERNST CI 0 PH SY N AR HC M L #3 50 93 0 8 MG TA B 00 05 06 00 10 5 RI 73 AY Ac 60 -2 -0 .0 TE 47 AR ti 35 6- 5- 00 66 AM ve 14 20 20 AI 22 08 08 D ERNST 1 PH SY AR M #3 93 8 RA 00 05 05 00 60 30 RI 73 No Ac NI 17 -0 -2 .0 TE 22 t ti TI 24 7- 2- 00 09 Av ve DI 35 20 20 AI ai NE 74 08 08 D la 9 PH bl 15 AR e 0 M MG #3 93 TA 8 BL ET CI 60 05 05 00 15 30 RI 73 No Ac TA 50 -0 -2 .0 TE 22 t ti LO 52 7- 2- 00 10 Av ve UT 52 20 20 AI ai AM 00 08 08 D la 1 PH bl HB AR e R M 40 #3 93 MG 8 TA BL ET 60 05 05 00 24 5 RI 73 No Ac 43 -0 -2 0. TE 22 t ti 20 7- 2- 00 11 Av ve 03 20 20 0 AI ai 31 08 08 D la 6 PH bl AR e M #3 93 8 UT 00 05 05 00 6. 30 RI 73 No Ac OV 08 -0 -2 70 TE 22 t ti EN 51 7- 2- 0 08 Av ve TI 13 20 20 AI ai L 20 08 08 D la HF 1 PH bl A AR e 90 M #3 MC 93 G 8 IN FORTE LE R IM 00 02 05 02 9. 30 RI 71 No Ac IT 17 -0 -2 00 TE 88 t ti RE 30 7- 2- 0 89 Av ve X 73 20 20 AI ai 10 70 08 08 D la 0 1 PH bl MG AR e M TA #3 BL 93 ET 8 OV 51 05 05 01 59 1 RI 73 No Ac ID 67 -0 -2 .0 TE 15 t ti E 25 2- 2- 00 29 Av ve 0. 27 20 20 AI ai 5% 60 08 08 D la 4 PH bl LO AR e TI M ON #3 93 8 OV 51 05 05 00 59 1 RI 73 No Ac ID 67 -0 -0 .0 TE 15 t ti E 25 2- 8- 00 29 Av ve 0. 27 20 20 AI ai 5% 60 08 08 D la 4 PH bl LO AR e TI M ON #3 93 8 IM 00 02 04 01 9. 30 RI 71 No Ac IT 17 -0 -2 00 TE 88 t ti RE 30 7- 4- 0 89 Av ve X 73 20 20 AI ai 10 70 08 08 D la 0 1 PH bl MG AR e M TA #3 BL 93 ET 8 RA 00 01 04 01 60 30 RI 71 No Ac NI 17 -2 -2 .0 TE 81 t ti TI 24 1- 4- 00 07 Av ve DI 35 20 20 AI ai NE 74 08 08 D la 9 PH bl 15 AR e 0 M MG #3 93 TA 8 BL ET PE 00 04 04 00 59 1 RI 72 No Ac RM 47 -0 -2 .0 TE 80 t ti ET 25 7- 4- 00 06 Av ve HR 24 20 20 AI ai IN 26 08 08 D la 7 PH bl 1% AR e M LO #3 TI 93 ON 8 PA 00 01 04 01 30 30 RI 71 No Ac RO 09 -2 -2 .0 TE 81 t ti XE 37 1- 4- 00 08 Av ve TI 11 20 20 AI ai NE 59 08 08 D la 8 PH bl HC AR e L M 20 #3 93 MG 8 TA BL ET UT 00 01 04 01 6. 30 RI 71 No Ac OV 08 -2 -2 70 TE 81 t ti EN 51 1- 4- 0 05 Av ve TI 13 20 20 AI ai L 20 08 08 D la HF 1 PH bl A AR e 90 M #3 MC 93 G 8 IN FORTE LE R CY 00 01 04 01 30 30 RI 71 No Ac CL 37 -2 -2 .0 TE 81 t ti OB 80 1- 4- 00 06 Av ve EN 75 20 20 AI ai ZA 10 08 08 D la UT 1 PH bl IN AR e E M 10 #3 93 MG 8 TA BL ET FL 00 03 04 00 2. 8 RI 72 No Ac UC 17 -1 -1 00 TE 38 t ti ON 25 1- 7- 0 47 Av ve AZ 41 20 20 AI ai OL 21 08 08 D la E 1 PH bl 15 AR e 0 M MG #3 93 TA 8 BL ET AL 00 04 04 00 18 30 YO 15 No Ac BU 48 -0 -1 0. UR 89 t ti TE 79 4- 0- 00 0 Av ve RO 50 20 20 0 PH ai L 16 08 08 AR la ERNST 0 MA bl L CY e 2. 5 MG /3 ML SO LN 00 03 04 00 6. 2 RI 72 No Ac 60 -0 -0 00 TE 31 t ti 35 6- 7- 0 78 Av ve 14 20 20 AI ai 22 08 08 D la 1 PH bl AR e M #3 93 8 CI 00 03 04 00 14 7 RI 72 No Ac UT 17 -0 -0 .0 TE 31 t ti OF 25 6- 7- 00 79 Av ve LO 31 20 20 AI ai XA 26 08 08 D la CI 0 PH bl N AR e HC M L #3 50 93 0 8 MG TA B IM 00 02 03 00 9. 30 RI 71 No Ac IT 17 -0 -2 00 TE 88 t ti RE 30 7- 6- 0 89 Av ve X 73 20 20 AI ai 10 70 08 08 D la 0 1 PH bl MG AR e M TA #3 BL 93 ET 8 RA 00 01 03 00 60 30 RI 71 No Ac NI 17 -2 -2 .0 TE 81 t ti TI 24 1- 6- 00 07 Av ve DI 35 20 20 AI ai NE 74 08 08 D la 9 PH bl 15 AR e 0 M MG #3 93 TA 8 BL ET PA 00 01 03 00 30 30 RI 71 No Ac RO 09 -2 -2 .0 TE 81 t ti XE 37 1- 6- 00 08 Av ve TI 11 20 20 AI ai NE 59 08 08 D la 8 PH bl HC AR e L M 20 #3 93 MG 8 TA BL ET UT 00 01 03 00 6. 30 RI 71 No Ac OV 08 -2 -2 70 TE 81 t ti EN 51 1- 6- 0 05 Av ve TI 13 20 20 AI ai L 20 08 08 D la HF 1 PH bl A AR e 90 M #3 MC 93 G 8 IN FORTE LE R CY 00 01 03 00 30 30 RI 71 No Ac CL 37 -2 -2 .0 TE 81 t ti OB 80 1- 6- 00 06 Av ve EN 75 20 20 AI ai ZA 10 08 08 D la UT 1 PH bl IN AR e E M 10 #3 93 MG 8 TA BL ET PE 00 01 03 00 59 1 RI 71 No Ac RM 47 -2 -2 .0 TE 60 t ti ET 25 2- 5- 00 98 Av ve HR 24 20 20 AI ai IN 26 08 08 D la 7 PH bl 1% AR e M LO #3 TI 93 ON 8 PA 00 01 03 00 30 30 RI 71 No Ac RO 09 -2 -2 .0 TE 59 t ti XE 37 1- 5- 00 82 Av ve TI 11 20 20 AI ai NE 59 08 08 D la 8 PH bl HC AR e L M 20 #3 93 MG 8 TA BL ET CY 00 01 03 00 30 30 RI 71 No Ac CL 37 -2 -2 .0 TE 59 t ti OB 80 1- 5- 00 83 Av ve EN 75 20 20 AI ai ZA 10 08 08 D la UT 1 PH bl IN AR e E M 10 #3 93 MG 8 TA BL ET 49 03 03 05 18 30 YO 13 No Ac 50 -2 -2 0. UR 06 t ti 20 0- 5- 00 2 Av ve 69 20 20 0 PH ai 76 07 08 AR la 1 MA bl CY e UT 50 01 03 00 30 30 RI 71 No Ac OP 11 -2 -2 .0 TE 59 t ti RA 10 1- 5- 00 86 Av ve NO 46 20 20 AI ai LO 90 08 08 D la L 3 PH bl 40 AR e M MG #3 93 TA 8 BL ET RA 00 01 03 00 60 30 RI 71 No Ac NI 17 -2 -2 .0 TE 59 t ti TI 24 1- 5- 00 84 Av ve DI 35 20 20 AI ai NE 74 08 08 D la 9 PH bl 15 AR e 0 M MG #3 93 TA 8 BL ET UT 00 01 03 00 6. 30 RI 71 No Ac OV 08 -2 -2 70 TE 59 t ti EN 51 1- 5- 0 85 Av ve TI 13 20 20 AI ai L 20 08 08 D la HF 1 PH bl A AR e 90 M #3 MC 93 G 8 IN FORTE LE R Immunization Name Date Route CVX Reacti Commen Provid Is Given on t er Refuse d TDAP J[place] No VACCIN 2013 ON [facility] E 7 HOSP YRS/> INC IM Vital Signs 05-06-2013 21:08 Name Value Interpretat Reference Comment ion Range Body 97.8 [degF] Temperature BP 96 mm[Hg] Diastolic BP Systolic 150 mm[Hg] Heart 68 /min Rate/Pulse O2% 98 % Respiratory 20 /min Rate 05-06-2013 19:50 Name Value Interpretat Reference Comment ion Range BP 93 mm[Hg] Diastolic BP Systolic 155 mm[Hg] Heart 71 /min Rate/Pulse O2% 97 % Respiratory 20 /min Rate Procedures Procedure DOS Code Location Performer Comment ADMN SET A7003 YOUR YOUR SM VOL [facility]BL ADMN SET A7003 YOUR YOUR SM VOL 7 [facility] DISPBL RADIOLOGI 79856 [facility] DIETZ ALL C EXAM 6 MEDICAL CHEST 2 IMAGING VIEWS ASS FRONTAL&L ATERAL HEMOGLOBI 41048 [facility] N 6 [facility] GLYCOSYLA INC INC RADHIKA A1C BLOOD 85822 [facility] COUNT 6 [facility] COMPLETE INC INC AUTO&AUTO DIFRNTL WBC COLLECTIO 20746 [facility] N VENOUS 6 [facility] BLOOD INC INC VENIPUNCT URE COMPREHEN 64109 [facility] MAHER SIVE 6 [facility] [place] [address] [facility] THYROID 6 [facility] STIMULATI [place] [address] [facility] MA[facility] THYROXINE 6 [facility] TOTAL INC INC ADMN SET A7003 YOUR YOUR SM VOL 6 PHARMACY PHARMACY NONFILTR [facility] PNEUMAT NEBULIZR DISPBL ADMN SET A7003 YOUR YOUR SM VOL 6 PHARMACY PHARMACY NONFILTR [facility] PNEUMAT NEBULIZR DISPBL ADMN SET A7003 YOUR YOUR SM VOL 6 [facility] NEBULIZR DISPBL FILTER A7013 YOUR YOUR DISPOSABL 6 PHARMACY PHARMACY [facility] W/AREOSOL COMPRESS/ US GENERATOR ADMN SET A7003 YOUR YOUR SM VOL 6 PHARMACY [facility] PNEUMAT NEBULIZR DISPBL ADMN SET A7003 YOUR YOUR SM VOL 6 PHARMACY [facility] PNEUMAT NEBULIZR DISPBL OPHTH 93184 SCIFRES SCIFRES MEDICAL 6 ANG ANG XM&EVAL COMPRHNSV ESTAB PT 1/> ADMN SET A7003 YOUR YOUR SM VOL 6 PHARMACY [facility] PNEUMAT NEBULIZR DISPBL SHOULDER L3650 [facility] 6 TECHNOLOG TECHNOLOG FIG 8 IES INC IES INC ABDUCT RESTRAINE R PREFAB COLLECTIO 64039 [facility] MAHER N VENOUS 6 [facility] BLOOD INC INC VENIPUNCT URE LIPID 27807 [facility]AR MAHER PANEL 6 [facility] INC INC ECG 10579 [facility] JANAK ROUTINE 6 PHYSICIAN MAT ECG S GROUP W/LEAST 12 LDS I&R ONLY ECG 76301 [facility] MA[facility] ROUTINE 6 [facility] ECG INC INC W/LEAST 12 LDS TRCG ONLY W/O I&R COMPREHEN 24769 [facility] SIVE 6 [facility] METABOLIC INC INC PANEL CREATINE 73980 GUNNAR MAHER KINASE MB 6 [facility] FRACTION INC INC ONLY CREATINE 04837 GUNNAR MAHER KINASE 6 [facility] TOTAL INC INC ECG 59844 GUN[facility] MAHER ROUTINE 6 [facility] ECG INC INC W/LEAST 12 LDS TRCG ONLY W/O I&R ECHO 51035 GUNNAR MAHER TTHRC R-T 6 [facility] 2D INC INC W/WOM-MOD E COMPL SPEC&COLR D ECG 86991 [place] ROUTINE 6 NEDRA NEDRA ECG W/LEAST 12 LDS I&[place] [address] GUNNAR MAHER TROPONIN 6 [facility] QUANTITAT INC INC CRIS BLOOD 69408 GUNNAR MAHER COUNT 6 [facility] COMPLETE INC INC AUTO&AUTO DIFRNTL WBC RADIOLOGI 50796 GUNNAR MAHER C EXAM 6 [facility] CHEST 2 INC INC VIEWS FRONTAL&L ATERAL ECG 66820 [facility] MAHER ROUTINE 6 [facility] ECG INC INC W/LEAST 12 LDS TRCG ONLY W/O I&R CREATINE 68926 [facility] MAHER KINASE 6 [facility] TOTAL INC INC THER 66046 G[facility] MAHER PROPH/DX 6 [facility] NJX IV INC INC PUSH SINGLE/1S T SBST/DRUG COMPREHEN 15643 [facility] MA[facility] SIVE 6 [facility] METABOLIC INC INC PANEL CREATINE 56000 GUNNAR MAHER KINASE MB 6 [facility] [place] [address] GUNNAR MAHER TROPONIN 6 [facility] QUANTITAT INC INC CRIS THERAPEUT 58927 GUNNAR MAHER IC 6 [facility] INJECTION INC INC IV PUSH EACH NEW DRUG BLOOD 42334 GUNNAR MAHER COUNT 6 [facility] COMPLETE INC INC AUTO&AUTO DIFRNTL WBC RADIOLOGI 68835 GUNNAR MAHER C EXAM 6 [facility] CHEST 2 INC INC VIEWS FRONTAL&L ATERAL RADEX 57740 GUNNAR MAHER SHOULDER 6 [facility] COMPLETE INC INC MINIMUM 2 VIEWS SHOULDER L3650 [facility] 6 TECHNOLOG TECHNOLOG FIG 8 IES INC IES INC ABDUCT RESTRAINE R PREFAB ECG 43413 HAYDEE HUBBARD JR ROUTINE 6 DWI DWI ECG W/LEAST 12 LDS I&R ONLY ECG 74575 [facility] MAHER ROUTINE 6 [facility] ECG INC INC W/LEAST 12 LDS TRCG ONLY W/O I&R ADMN SET A7003 YOUR YOUR SM VOL 6 PHARMACY PH[facility]AC[facility] PNEUMAT NEBULIZR DISPBL ADMN SET A7003 YOUR YOUR SM VOL 5 PHARMACY PH[facility]AC[facility] PNEUMAT NEBULIZR DISPBL COMPUTER- 30518 [facility] MAHER AIDED 5 [facility] DETECTION INC INC SCREENING MAMMOGRAP HY SCREENING G0202 [facility]NAR MAHER 5 [facility] MAMMOGRAP INC INC HY WILTON INCL CAD WHEN PERFORMD MRI 42719 NEVADA DIETZ ALL SPINAL 5 MEDICAL CANAL IMAGING CERVICAL ASS W/O CONTRAST MATRL ADMN SET A7005 YOUR YOUR W/SM VOL 5 PHARMACY PHARMACY [employer] [facility] NEBULIZR NON-DISPB L RADEX 20484 GUNNAR MAHER HAND 4 [facility] MINIMUM 3 INC INC VIEWS TDAP 11897 GUNNAR MAHER VACCINE 7 4 [facility] YRS/> IM INC INC IM ADM 69083 G[facility]AR MAHER PRQ ID 4 [facility] SUBQ/IM INC INC NJXS 1 VACCINE CULTURE 07681 GUNNAR MAHER BACTERIAL 4 [facility] INC INC QUANTTATI VE COLONY COUNT URINE ADMN SET A7005 YOUR YOUR W/SM VOL 4 PHARMACY PHARMACY [facility] NEBULIZR NON-DISPB L THERAPEUT 44113 GUNNAR MAHER IC 4 [facility] PROPHYLAC INC INC TIC/DX INJECTION SUBQ/IM RADEX 08445 N[place] TEENA SPINE 4 MEDICAL FOREIGN LUMBOSACR IMAGING AL 2/3 ASS VIEWS THERAPEUT 33756 GUNNAR MAHER IC PX 1/> 3 [facility] AREAS INC INC EACH 15 MIN EXERCISES APPL 11301 GUNNAR MAHER MODALITY 3 [facility] 1/> AREAS INC INC ELEC STIMJ UNATTENDE D APPL 10378 GUNNAR MAHER MODALITY 3 [facility] 1/> AREAS INC INC ULTRASOUN D EA 15 MIN APPL 16401 GUNNAR MAHER MODALITY 3 [facility] 1/> AREAS INC INC ULTRASOUN D EA 15 MIN APPL 55103 GUNNAR MAHER MODALITY 3 [facility] 1/> AREAS INC INC ELEC STIMJ UNATTENDE D THERAPEUT 71649 GUNNAR MAHER IC PX 1/> 3 [facility] AREAS INC INC EACH 15 MIN EXERCISES THERAPEUT 55215 GUNNAR MAHER IC PX 1/> 3 [facility] AREAS INC INC EACH 15 MIN EXERCISES APPL 08893 GUNNAR MAHER MODALITY 3 [facility] 1/> AREAS INC INC ELEC STIMJ UNATTENDE D APPL 16888 GUNNAR MAHER MODALITY 3 [facility] 1/> AREAS INC INC ELEC STIMJ UNATTENDE D THERAPEUT 19083 GUNNAR MAHER IC PX 1/> 3 [facility] AREAS INC INC EACH 15 MIN EXERCISES PHYSICAL 17216 GUNNAR MAHER THERAPY 3 [facility] EVALUATIO INC INC N IADNA 47487 [facility] NEISSERIA 3 [employer] GONORRHOE AE AMPLIFIED PROBE TQ IADNA 52471 [facility] CHLAMYDIA 3 [employer] TRACHOMAT IS AMPLIFIED PROBE TQ URINLS 58258 FIELD AMB FIELD AMB DIP 3 STICK/TAB LET REAGNT NON-AUTO MICRSCPY OPHTH 77308 [facility] 3 XM&EVAL COMPRHNSV ESTAB PT 1/> URINLS 64822 FIELD AMB FIELD AMB DIP 3 STICK/TAB LET REAGNT NON-AUTO MICRSCPY LIPOPROTE 10986 FIELD AMB FIELD AMB IN DIR 3 CONSTANCE HIGH DENSITY CHOLESTER OL CHOLESTER 34685 FIELD AMB FIELD AMB OL 3 SERUM/WHO LE BLOOD TOTAL GLUCOSE 33763 FIELD AMB FIELD AMB QUANTITAT 3 CRIS BLOOD XCPT REAGENT STRIP TRANSFERA 64874 FIELD AMB FIELD AMB SE 3 [place] [address] FIELD AMB FIELD AMB TRIGLYCER 3 IDES TRANSFERA 46308 FIELD AMB FIELD AMB SE 3 ASPARTATE AMINO AST SGOT COLLECTIO 58280 FIELD AMB FIELD AMB N VENOUS 3 BLOOD VENIPUNCT URE BLOOD 44725 FIELD AMB FIELD AMB COUNT 3 COMPLETE AUTO&AUTO DIFRNTL WBC BASIC 52870 [facility] METABOLIC 3 DIAGNOSTI DIAGNOSTI [place] [address] [facility] THYROID 3 DIAGNOSTI DIAGNOSTI STIMULATI CS NG HORMONE TSH URINLS 73142 A C KILPELA DIP 3 DENNISE SOTO STICK/TAB PSC LET REAGNT NON-AUTO MICRSCPY RADIOLOGI 17659 GUNNAR MAHER C 3 [facility] EXAMINATI INC INC ON PELVIS 1/2 VIEWS RADEX 06729 [facility]UNNAR MAHER HAND 3 [facility] MINIMUM 3 INC INC VIEWS RADEX 39952 GUNNAR MAHER SPINE 3 [facility] LUMBOSACR INC INC AL MINIMUM 4 VIEWS RADEX 17853 GUNNAR MAHER HUMERUS 3 [facility] MINIMUM 2 INC INC VIEWS ADMN SET A7003 YOUR YOUR SM VOL 3 PHARMACY PHARMACY NONFILTR [facility] PNEUMAT NEBULIZR DISPBL ADMN SET A7003 YOUR YOUR SM VOL 3 PHARMACY [facility]ARMAC[facility] PNEUMAT NEBULIZR DISPBL ADMN SET A7003 YOUR YOUR SM VOL 3 PHARMACY PHARMACY NONFILTR [facility] PNEUMAT NEBULIZR DISPBL ADMN SET A7003 YOUR YOUR SM VOL 2 PHARMACY PHARMACY NONFILRED [facility] PNEUMAT NEBULIZR DISPBL RADIOLOGI 75001 NEVADA TEENA C EXAM 2 MEDICAL FOREIGN CHEST 2 IMAGING VIEWS ASS FRONTAL&L ATERAL URINLS 73630 KILPELA KILPELA DIP 2 JEA JEA STICK/TAB LET REAGNT NON-AUTO MICRSCPY ADMN SET A7003 YOUR YOUR SM VOL 2 PHARMACY PHARMACY [facility] PNEUMAT NEBULIZR DISPBL ADMN SET A7003 YOUR YOUR SM VOL 2 PHARMACY PHARMACY NONFILRED [facility] PNEUMAT NEBULIZR DISPBL URNLS DIP 09913 EDOUARD NUNN 2 OSWALDO OSWALDO STICK/TAB LET RGNT NON-AUTO W/O MICRSCP [facility]- 75849 GUNNAR MAHER AIDED 2 [facility] DETECTION [place] [address] GUNNAR MAHER TRANSVAGI 2 [facility] NAL INC INC SCREENING G0202 GUNNAR MAHER 2 [facility] MAMMOGRAP INC INC HY WILTON INCL CAD WHEN PERFORMD DETERMINA 95626 LACHELLE MEYERS 2 GRE GRE REFRACTIV E STATE OPHTH 03746 [facility] 2 GRE GRE XM&EVAL COMPRE NEW PT 1/> VST ADMN SET A7003 YASSINE METZGER SM VOL 2 HOME HOME NONFILTR MEDICAL MEDICAL PNEUMAT EQUIPME EQUIPME NEBULIZR DISPBL NEBULIZER E0570 YASSINE METZGER WITH 2 HOME HOME COMPRESSO [place] [address] GUNNAR MAHER ABDOMINAL 2 [facility] REAL INC INC TIME W/IMAGE LIMITED RADEX 10028 GUNNAR MAHER SPINE 2 [facility] LUMBOSACR INC INC AL MINIMUM 4 VIEWS CYTP C/V 57935 PATHOLOGY PATHOLOGY AUTO THIN 1 & & LYR CYTOLOGY CYTOLOGY PREPJ SCR LAB LAB MNL RESCR PHYS IADNA 09589 PATHOLOGY PATHOLOGY PAPILLOMA 1 & & VIRUS CYTOLOGY CYTOLOGY HUMAN LAB LAB AMPLIFIED PROBE TQ URINE 37341 SPIREK SPIREK 1 ANI ANI TEST VISUAL COLOR CMPRSN METHS BLOOD 57071 SPIREK SPIREK OCCULT 1 ANI ANI FECAL HGB DETER IA QUAL FECES 1-3 URINLS 25507 COLLIN COLLIN DIP 1 CESAR CESAR STICK/TAB LET REAGNT NON-AUTO MICRSCPY GONADOTRO 98319 COLLIN COLLIN PIN 1 CESAR CESAR CHORIONIC QUANTITAT CRIS ADMN SET A7003 YOUR YOUR SM VOL 1 PHARMACY PHARMACY NONFILTR [facility] PNEUMAT NEBULIZR DISPBL ADMN SET A7003 YOUR YOUR SM VOL 1 PHARMACY PHARMACY NONFILTR [facility] PNEUMAT NEBULIZR DISPBL URINLS 81784 A C COLLIN DIP 1 DENNISE OLMOS CESAR STICK/TAB PSC LET REAGNT NON-AUTO MICRSCPY URINLS 83069 A C BOWDEN A DIP 1 DENNISE OLMOS STICK/TAB PSC LET REAGNT NON-AUTO MICRSCPY LIPID 40893 [facility] PANEL 1 [employer] BLOOD 55771 LAB [facility] COUNT 1 [employer] COMPLETE [employer] HOLDING AUTO&AUTO DIFRNTL WBC BASIC 52925 [facility] METABOLIC 1 [employer] PANEL [place] [address] LAB [facility] THYROID 1 [employer] STIMULATI HOLDING HOLDING NG HORMONE TSH CYTP C/V 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 THIN 1 Y SHIRLENE OF Y SHIRLENE OF LYR CHOLO CHOLO PREPJ SCR H H MNL RESCR PHYS BLOOD 71206 A C DENNISE Martinez OCCULT 1 DENNISE OLMOS PEROXIDAS PSC E ACTV QUAL FECES 1 DETER URINLS 37118 A C BOWDEN A DIP 1 DENNISE OLMOS STICK/TAB PSC LET REAGNT NON-AUTO MICRSCPY RADEX 99280 [facility] FOOT [facility] COM[facility] INC MINIMUM 3 VIEWS RADEX 14512 GUNN[facility] ANKLE 0 [facility] COM[facility]TE INC INC MINIMUM 3 VIEWS RADEX 28440 [facility]UNNAR MAHER ELBOW 0 [facility] COMPLETE INC INC MINIMUM 3 VIEWS URINLS 89282 A C BOWDEN A DIP 0 DENNISE OLMOS STICK/TAB PSC LET REAGNT NON-AUTO MICRSCPY GONADOTRO 43130 A C DENNISE Martinez PIN 0 DENNISE OLMOS CHORIONIC PSC QUANTITAT CRIS ADMN SET [id number] YOUR YOUR SM VOL 0 PHARMACY PHARMACY [facility] PNEUMAT NEBULIZR DISPBL URINLS 26849 A C BOWDEN A DIP 0 DENNISE OLMOS STICK/TAB PSC LET REAGNT NON-AUTO MICRSCPY BLOOD 51468 [facility] COUNT 0 [facility] COMPLETE INC INC AUTO&AUTO DIFRNTL WBC RPR 90874 GUNNAR [facility] UMBILICAL 0 [facility] HRNA 5 INC INC YRS/> [place] [address] GUNN[facility] MAHER INFUSION 0 [facility] THERAPY INC INC PROPHYLAX IS/DX EA HOUR ANESTHESI 68094 [facility] [place] A HERNIA 0 ANESTH REPAIR OF THE UPPER BLUE ABDOMEN NOS THERAPEUT 87650 GUNNAR MAHER IC 0 [facility] INJECTION INC INC IV PUSH EACH NEW DRUG PRESSURIZ 10506 GUNNAR MAHER ED/NONPRE 0 [facility] SSURIZED [place] [address] GUNNAR MAHER INFUSION 0 [facility] THERAPY/P INC INC ROPHYLAXI S /DX 1ST TO 1 HR OTH & 5341 GUNNAR MAHER OPEN REP 0 [facility] UMBILICAL INC INC HERNIA W/GRAFT/P ROSTH ECG 33800 GUNNAR HOOK ROUTINE 0 [facility] W/LEAST P 12 LDS I&R ONLY BLOOD 96230 GUNNAR MAHER COUNT 0 [facility] COMPLETE INC INC AUTO&AUTO DIFRNTL WBC GONADOTRO 96213 GUNNAR MAHER PIN 0 [facility] CHORIONIC INC INC QUALITATI VE ECG 96783 GUNNAR MAHER ROUTINE 0 [facility] ECG INC INC W/LEAST 12 LDS TRCG ONLY W/O I&R URINLS 30515 Michelle BOWDEN A DIP 0 DENNISE OLMOS STICK/TAB PSC LET REAGNT NON-AUTO MICRSCPY ADMN SET A7003 YOUR YOUR SM VOL 0 PHARMACY [facility] PNEUM[facility] NEBULIZR DISPBL GONADOTRO 10523 Michelle BOWDEN, A PIN 0 DENNISE OLMOS C CHORIONIC PSC QUANTITAT CRIS 3D 66764 GUNNAR MAHER RENDERING 0 [facility] W/INTERP INC INC & [place] [address] LULÚ DICKINSON, HEAD/BRAI 0 MEDICAL JASMIN N W/O 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 MATERIAL S OPHTH 68142 ELYSE CAST, MEDICAL 0 VISION ARIK M XM&EVAL COMPRHNSV ESTAB PT 1/> [place] [address] LAB SHIRLENE LAB SHIRLENE THYROID 0 AMERIC AMERIC STIMULATI HOLDING HOLDING NG HORMONE TSH GONADOTRO 72959 LAB [facility] LAB SHIRLENE PIN 0 AMERIC AMERIC LUTEINIZI [place] [address] LAB [facility] LAB SH[facility] PROLACTIN 0 [facility]ING HOLDING THYROID 51733 LAB [facility] LAB SHIRLENE HORM 0 AMERIC AMERIC UPTK/THYR HOLDING HOLDING OID HORMONE BINDING RATIO GONADOTRO 83129 LAB [facility] LAB SHIRLENE PIN 0 [facility] AMER[facility] FOLLICLE HOLDING [place] [address] LAB [facility] LAB SHIRLEN[facility] THYROXINE 0 [employer] [place] [address] LAB [facility] LAB SHIRLENE ESTRADIOL 0 AMERIC AMERIC HOLDING HOLDING US PELVIC 96921 GUN[facility]AR GUNNAR 0 [facility] NONOBSTET INC [place] [address] GUNNAR MAHER TRANSVAGI 0 [facility] NAL INC INC ADMN SET A7003 YOUR YOUR SM VOL 0 PHARMACY PHARMACY [facility] PNEUMAT NEBULIZR DISPBL GONADOTRO 34186 GUNNAR MAHER PIN 0 [facility] CHORIONIC INC INC QUALITATI VE THERAPEUT 39027 GUNNAR MAHER IC PX 1/> 0 [facility] AREAS INC INC EACH 15 MIN EXERCISES APPLICATI 06188 GUNNAR MAHER ON 0 [facility] MODALITY INC INC 1/> AREAS HOT/COLD PACKS APPL 01963 GUNNAR MAHER MODALITY 0 [facility] 1/> AREAS INC INC IONTOPHOR ESIS EA 15 MIN APPL 88263 [facility] AREAS INC INC ELEC STIMJ UNATTENDE D APPL 63972 [facility]/> AREAS INC INC ELEC STIMJ UNATTENDE D APPLICATI 59047 [facility] ON [facility] MODALITY INC INC 1/> AREAS HOT/COLD PACKS APPL 64892 [facility]/> AREAS INC INC IONTOPHOR ESIS EA 15 MIN APPL 21559 [facility]/> AREAS INC INC IONTOPHOR ESIS EA 15 MIN PHYSICAL 64945 [facility] THERAPY 0 [facility] EVALUATIO INC INC N THERAPEUT 35586 [facility] IC PX 1/> 0 [facility] AREAS INC INC EACH 15 MIN EXERCISES APPL 23854 [facility]AL[facility]/> AREAS INC INC ELEC STIMJ UNATTENDE D APPLICATI 00386 [facility] ON [facility] MODALITY INC INC 1/> AREAS HOT/COLD PACKS RADEX 02271 [facility] [place] 0 [facility] JASMIN W/POSTERO IMAGING ANT CH ASSOCIATE MINIMUM 3 S VIEWS RADEX 87131 [facility] [place] [place], SHOULDER 0 MEDICAL JASMIN COMPLETE IMAGING MINIMUM 2 ASSOCIATE VIEWS S ADMN SET A7003 YOUR YOUR SM VOL 9 PHARMACY PHARMACY [facility] PNEUMAT NEBULIZR DISPBL ECG 02759 A Mir BOWDEN A ROUTINE 9 DENNISE Hester ECG PSC W/LEAST 12 LDS W/I&R URINLS 25475 A Michelle BAIG DIP 9 DENNISE Hester STICK/TAB PSC LET REAGNT NON-AUTO MICRSCPY URINLS 22320 A Michelle BAIG DIP 9 DENNISE Hester STICK/TAB PSC LET REAGNT NON-AUTO MICRSCPY ADMN SET A7003 YOUR YOUR SM VOL 9 PHARMACY PHARMACY [facility] PNEUMAT NEBULIZR DISPBL SCREENING 37017 [facility] 9 [facility] MAMMOGRAP INC INC HY BILATERAL US PELVIC 07671 [place] Lloyd [facility] P NONOBSTET IMAGING CESAR ASSOCIATE [place] [address] GUNNAR MAHER TRANSVAGI 9 [facility] NAL INC INC COMPUTER- 57222 [place] BETSY [facility] 9 MEDICAL PAULETTE P DETECTION IMAGING ASSOCIATE SCREENING S MAMMOGRAP HY BLOOD 93387 A Mir COLLIN, OCCULT 9 DENNISE SAENZ PEROXIDAS PSC E ACTV QUAL FECES 1 DETER RADEX 93874 [facility] WRIST 9 [facility] COMPLETE INC INC MINIMUM 3 VIEWS URINLS 47075 A Mir BOWDEN, A DIP 9 DENNISE OLMOS C STICK/TAB PSC LET REAGNT NON-AUTO MICRSCPY URINE 79009 [facility] TEST INC INC VISUAL COLOR CMPRSN METHS URNLS DIP 80825 [facility] 9 [facility] STICK/TAB INC INC LET REAGENT AUTO MICROSCOP Y RADEX 59335 [facility] HAND 9 [facility] MINIMUM 3 INC INC VIEWS ADMN SET A7003 YOUR YOUR SM VOL 9 PHARMACY [facility]UL[facility] DISPBL URINLS 39450 Michelle DEWEY 9 DENNISE Hester STICK/TAB PSC LET REAGNT NON-AUTO MICRSCPY ADMN SET A7003 YOUR YOUR SM VOL 9 PHARMACY [facility] P[facility] NEBULIZR DISPBL ADMN SET A7003 YOUR YOUR SM VOL 9 PHARMACY [facility] NEBULIZR DISPBL ADMN SET A7003 YOUR YOUR SM VOL 9 PHARMACY PHARMACY [facility] PNEUMAT NEBULIZR DISPBL ADMN SET A7003 YOUR YOUR SM VOL 8 PHARMACY [facility] [address] DEVON CHEEMA 8 MEDICAL JASMIN NAL IMAGING ASSOCIATE S US PELVIC 79558 Chris CHEEMA MEDICAL JASMIN NONOBSTET IMAGING CESAR ASSOCIATE REAL-TIME S IMAGE COMPLETE [facility] [address] SAMMIE A SAMMIE A XM&EVAL COMPRE NEW PT 1/> VST ADMN SET A7003 YOUR YOUR SM VOL 8 PHARMACY [facility] PNEUMAT NEBULIZR DISPBL SUSCEPTIB 61279 GUNN[facility] LTY STDY 8 [facility] ANTIMICRB INC INC IAL MICRO/AGA R DILUTJ URNLS DIP 89702 [facility] 8 [facility] STICK/TAB INC INC LET REAGENT AUTO MICROSCOP Y CULTURE 09931 [facility] BACTERIAL 8 [facility] INC INC QUANTTATI VE COLONY COUNT URINE ADMN SET A7003 YOUR YOUR SM VOL 8 PHARMACY [facility] PNE[facility] NEBULIZR DISPBL URINLS 21877 YENIFER PARKER 8 DENNISE SAENZ STICK/TAB PSC LET REAGNT NON-AUTO MICRSCPY CULTURE 22978 [facility] BACTERIAL 8 [employer] QUANTTATI VE COLONY COUNT URINE CULTURE 85301 [facility] BACTERIAL 8 [facility] INC INC QUANTTATI VE COLONY COUNT URINE URINE 68897 GUNNAR MAHER 8 [facility] TEST INC INC VISUAL COLOR CMPRSN METHS URNLS DIP 78300 GUNNAR JOHNSONON 8 [facility]OS[facility] STICK/TAB INC INC LET REAGENT AUTO MICROSCOP Y ADMN SET A7003 YOUR YOUR SM VOL 8 PHARMACY PHARMACY [facility] PNEUMAT NEBULIZR DISPBL Encounters Encounter Start End Date Code Location Performer Type Date OFFICE 15526 [facility] HÉCTOR OUTPATIEN 7 7 PHYSICIAN T VISIT S GROUP 15 MINUTES EMERGENCY 27502 [facility] RENUSC DEPT 6 6 PHYSICIAN VISIT [facility] HIGH SEVERITY& THREAT [facility] GUNNAR - 6 6 [facility] OUTPATIEN INC T OFFICE 09176 [facility] OUTPATIEN 6 6 [facility] 15 MINUTES EMERGENCY 12371 [facility] 6 6 PHYSICIAN [facility] DEPARTMEN [facility] T VISIT MODERATE SEVERITY OFFICE 50838 GUNN[facility] MIRANDA OUTPATIEN 6 6 [facility] 15 MINUTES OFFICE 09675 [facility] HENNA OUTPATIEN 6 6 PHYSICIAN STONE T VISIT S GROUP PA-C EUGENIE 25 MINUTES EMERGENCY 81379 [facility] 6 PHYSICIAN DORON VISIT [facility] HIGH [facility]VERITY& [facility] 39007 GUN[facility]AR MATHUR OUTPATIEN 6 6 [facility] 15 MINUTES OFFICE 92594 GUNNAR SEVILLA OUTPATIEN 6 6 [facility] T VISIT HOSPITAL 15 MINUTES HOSPITAL GUNNAR - 6 6 [facility] OUTPATIEN INC T OFFICE 67161 [facility] RULA OUTPATIEN 6 6 PHYSICIAN CAM T VISIT S GROUP 10 MINUTES HOSPITAL GUNNAR - 6 6 [facility] OUTPATIEN INC T OFFICE 95701 [facility] JANAK OUTPATIEN 6 6 PHYSICIAN MAT T VISIT S GROUP 40 MINUTES EMERGENCY 25330 [facility] 6 6 [facility] DEPARTMEN INC T VISIT MODERATE SEVERITY HOSPITAL [facility] - 6 6 [facility] OUTPATIEN INC T EMERGENCY 09955 LG REYES DEPT 6 6 PHYSICIAN VISIT S, [facility] HIGH SEVERITY& THREAT [facility] HOSPITAL GUNNAR - 6 6 [facility] OUTPATIEN INC T OFFICE 50721 [facility] MARY OUTPATIEN 6 6 PHYSICIAN TERESA T VISIT S GROUP 15 MINUTES EMERGENCY 18466 G[facility] 6 6 [facility] DEPARTMEN INC T VISIT HIGH/URGE NT SEVERITY EMERGENCY 98901 LG ABDUL DEPT 6 6 PHYSICIAN U ANNALEE VISIT [facility] HIGH SEVERITY& THREAT [facility] GUNNAR - 6 6 [facility] OUTPATIEN INC T EMERGENCY 51456 LG MIRANDA 5 5 PHYSICIAN TERESA DEPARTMEN S, [facility] T VISIT LOW/MODER SEVERITY HOSPITAL G[facility]AR - 5 5 [facility] OUTPATIEN INC T EMERGENCY 29396 [facility] 5 5 [facility] DEPARTMEN INC T VISIT LIMITED/M [facility] PROB [facility] GUN[facility]AR - 5 5 [facility] OUTPATIEN INC T HOSPITAL GUNNAR - 5 5 [facility] OUTPATIEN INC T OFFICE 10016 [facility] OUTPATIEN 5 5 PHYSICIAN T VISIT S GROUP 10 MINUTES OFFICE 92930 [facility] MARY OUTPATIEN 4 4 PHYSICIAN TERESA T VISIT S GROUP 10 MINUTES HOSPITAL GUNNAR - 4 4 [facility] OUTPATIEN INC T EMERGENCY 97211 [facility] 4 4 [facility] DEPARTMEN INC T VISIT LOW/MODER SEVERITY HOSPITAL G[facility] - 4 4 [facility] OUTPATIEN INC T OFFICE 24769 [facility] MARY OUTPATIEN 4 4 PHYSICIAN TERESA T VISIT S GROUP 25 MINUTES HOSPITAL GUNNAR - 4 4 [facility] OUTPATIEN INC T OFFICE 95828 [facility] MARY OUTPATIEN 4 4 PHYSICIAN TERESA T VISIT S GROUP 10 MINUTES HOSPITAL GUNNAR - 4 4 [facility] OUTPATIEN INC T HOSPITAL UGNNAR - 3 3 [facility] OUTPATIEN INC [facility]OSPITAL GUNNAR - 3 3 [facility] OUTPATIEN INC T OFFICE 41087 FIELD AMB FIELD AMB OUTPATIEN 3 3 T VISIT 15 MINUTES OFFICE 40840 FIELD AMB FIELD AMB OUTPATIEN 3 3 T VISIT 15 MINUTES OFFICE 35441 Michelle CRAWLEY OUTPATIEN 3 3 DENNISE OLMOS JEMichelle T VISIT PSC 15 MINUTES Emergency JORGE A Miranda MD (ER) 3 19:39 3 21:13 [facility] GUNNAR - 3 3 [facility] OUTPATIEN INC T EMERGENCY 79595 MARY MIRANDA 3 3 TERES[facility] TERES[facility] DEPARTMEN T VISIT HIGH/URGE NT SEVERITY EMERGENCY 47317 [facility] 3 3 [facility] DEPARTMEN INC T VISIT LOW/MODER SEVERITY OFFICE 78599 J CARLOS WHITMAN PRITI OUTPATIEN 3 3 T NEW 30 MINUTES EMERGENCY 69545 [facility] 2 2 [facility] DEPARTMEN INC T VISIT LOW/MODER SEVERITY EMERGENCY 46877 KEV ANGULO 2 2 III [place] III [place] DEPARTMEN T VISIT HIGH/URGE NT SEVERITY HOSPITAL G[facility] - 2 2 [facility] OUTPATIEN INC T OFFICE 76754 KILPELA KILPELA OUTPATIEN 2 2 CHARLES JEA T VISIT 15 MINUTES OFFICE 50849 KILPELA KILPELA OUTPATIEN 2 2 JEMichelle JEA T VISIT 15 MINUTES OFFICE 76553 KILPELA KILPELA OUTPATIEN 2 2 JEMichelle JEA T VISIT 15 MINUTES OFFICE 39582 COLLIN COLLIN OUTPATIEN 2 2 CESAR CESAR T VISIT 15 MINUTES OFFICE 96544 COLLIN COLLIN OUTPATIEN 2 2 [facility] CESAR T VISIT 15 MINUTES HOSPITAL G[facility]AR - 2 2 [facility] OUTPATIEN INC T OFFICE 35459 NUNN NUNN OUTPATIEN 2 2 OSWALDO OSWALDO T NEW 30 MINUTES EMERGENCY 40014 LACHELLE MIRANDA 2 2 EMERGENCY [facility] DEPARTMEN SERVICES T VISIT MODERATE SEVERITY HOSPITAL GUNNAR - 2 2 [facility] OUTPATIEN INC T EMERGENCY 85564 [facility]AR 2 2 [facility] DEPARTMEN INC T VISIT LOW/MODER SEVERITY OFFICE 96313 COLLIN COLLIN OUTPATIEN 2 2 [facility]ES[facility] CESAR T VISIT 25 MINUTES HOSPITAL GUNNAR - 2 2 [facility] OUTPATIEN INC T OFFICE 58633 ARGENIS NEDRA MIKEES NEDRA OUTPATIEN 2 2 T VISIT 15 MINUTES HOSPITAL GUNNAR - 2 2 [facility] OUTPATIEN INC T INITIAL 88628 SPIREK SPIREK PREVENTIV 1 1 ANI ANI E MEDICINE NEW PATIENT 40-64YRS OFFICE 56582 COLLIN COLLIN OUTPATIEN 1 1 [facility]ES[facility] CESAR T VISIT 15 MINUTES HOSPITAL G[facility]AR - 1 1 [facility] OUTPATIEN INC T EMERGENCY 56222 LACHELLE MIRANDA 1 1 EMERGENCY [facility] DEPART[facility] SERVICES T VISIT MODERATE SEVERITY EMERGENCY 88505 [facility] 1 1 [facility] T VISIT LIMITED/M INOR PROB OFFICE 80755 A C COLLIN OUTPATIEN 1 1 DENNISE GUERRERO T VISIT PSC 25 MINUTES OFFICE 25842 A C BOWDEN A OUTPATIEN 1 1 DENNISE OLMOS T VISIT PSC 15 MINUTES OFFICE 43015 A C OUTPATIEN 1 1 DENNISE OLMOS T VISIT PSC 15 MINUTES PERIODIC 57780 A C BOWDEN A PREVENTIV 1 1 DENNISE OLMOS E MED EST PSC PATIENT 40-64YRS OFFICE 70630 A C DENNISE A OUTPATIEN 1 1 DENNISE OLMOS T VISIT 5 PSC MINUTES HOSPITAL [facility] - 1 1 [facility] T EMERGENCY 06703 LACHELLE ANGUOL 1 1 EMERGENCY [facility] SERVICES T VISIT HIGH/URGE NT SEVERITY EMERGENCY 47414 GUN[facility]AR 1 1 [facility] T VISIT LOW/MODER [facility]VERITY [facility] - 0 [facility] T OFFICE 39184 A C BOWDEN A OUTPATIEN 0 0 DENNISE OLMOS T VISIT PSC 15 MINUTES OFFICE 28294 A C BOWDEN A OUTPATIEN 0 0 DENNISE OLMOS T VISIT PSC 25 MINUTES EMERGENCY 38951 [facility] T VISIT MODERATE SEVERITY EMERGENCY 61988 LACHELLE MIRANDA 0 0 EMERGENCY [facility] SERVICES T VISIT HIGH/URGE NT SEVERITY [facility]OSPITAL G[facility]AR - 0 0 [facility] T HOSPITAL GUNNAR [facility] 0 0 [facility] T HOSPITAL GUNNAR - 0 0 [facility] T OFFICE 88079 RULA JONESRON CONSULTAT 0 0 NAOMI NAOMI ION NEW/ESTAB PATIENT 60 MIN OFFICE 70542 Michelle Martinez OUTPATIEN 0 0 DENNISE OLMOS T VISIT PSC 25 MINUTES OFFICE 18055 Michelle DEWEY OUTPATIEN 0 0 DENNISE Hester T VISIT PSC 15 MINUTES HOSPITAL GUN[facility]AR - 0 0 [facility] T OFFICE 27205 Michelle DEWEY OUTPATIEN 0 0 DENNISE Hester T VISIT PSC 25 MINUTES HOSPITAL GUNNAR - 0 0 [facility] T OFFICE 42593 Michelle DEWEY OUTPATIEN 0 0 DENNISE Hester T VISIT PSC 25 MINUTES [facility] GUNNAR - 0 0 [facility] OUTPATIEN [facility] T OFFICE 15437 Michelle DEWEY OUTPATIEN 0 0 DENNISE Hester T VISIT PSC 15 MINUTES HOSPITAL GUNNAR - 0 0 [facility] OUTPATIEN [facility] GUNNAR - 0 0 [facility] OUTPATI[facility] T OFFICE 09370 Michelle DEWEY OUTPATIEN 0 0 DENNISE Hester T VISIT PSC 15 MINUTES EMERGENCY 71699 LACHELLE WALL, 0 0 EMERGENCY [facility] SERVICES O T VISIT HIGH/URGE ASSOCIATE NT S SEVERITY [facility] GUNNAR - 0 0 [facility] OUTPATIEN [facility] T OFFICE 46320 Michelle DEWEY OUTPATIKODI 9 9 DENNISE Hester T VISIT PSC 25 MINUTES OFFICE 27433 Michelle DEWEY 9 9 DENNISE Hester T VISIT PSC 15 MINUTES HOSPITAL GUNNAR - 9 9 [facility] OUTPATI[facility] T OFFICE 55098 Michelle DEWEY 9 9 DENNISE Hester T VISIT PSC 25 MINUTES OFFICE 77804 Michelle DEWEY 9 9 DENNISE Hester T VISIT PSC 15 MINUTES HOSPITAL GUNNAR - 9 9 [facility] OUTPATIEN INC T EMERGENCY 02426 LACHELLE MELENDEZ, 9 9 EMERGENCY [facility] SERVICES T VISIT MODERATE ASSOCIATE SEVERITY [facility] GUNNAR - 9 9 [facility] OUTPATIEN INC T EMERGENCY 92318 GUNNAR 9 9 [facility] T VISIT LOW/MODER SEVERITY OFFICE 57865 Michelle DEWEY 9 9 DENNISE Hester T VISIT PSC 25 MINUTES OFFICE 26353 ANGELIA PARKER 8 8 DENNISE SAENZ T VISIT PSC 15 MINUTES EMERGENCY 33951 RASHAD BEST, 8 8 [facility] T VISIT ON LOW/MODER SEVERITY HOSPITAL GUNNAR - 8 8 [facility] OUTPATI[facility] INC T EMERGENCY 39024 GUNNAR 8 8 [facility] T VISIT LIMITED/M INOR PROB HOSPITAL GUNNAR - 8 8 [facility] OUTPATIEN INC T OFFICE 11357 Michelle DEWEY 8 8 DENNISE Hester T VISIT PSC 15 MINUTES EMERGENCY 39427 GUNNAR ADEN, 8 8 [facility] T VISIT PROF SERV LOW/MODER SEVERITY HOSPITAL GUNNAR - 8 8 [facility] OUTPATIEN INC T OFFICE 37862 Michelle DEWEY 8 8 DENNISE Hester T VISIT PSC 15 MINUTES OFFICE 73673 ANGELIA PARKER 8 8 DENNISE SAENZ T VISIT PSC 15 MINUTES HOSPITAL GUNNAR - 8 8 [facility] OUTPATIEN INC T EMERGENCY 53567 GUNNAR 8 8 [facility] INC T VISIT MODERATE SEVERITY OFFICE 52017 ANGELIA PARKER 8 8 DENNISE Eastman VISIT PSC 25 MINUTES
--- OUTSIDE RECORDS SUMMARY | 2017-03-30 18:59 | External Medical Summary Rpt ---
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 CESAR STICK/TAB PSC LET REAGNT NON-AUTO MICRSCPY URINLS 11430 A C BOWDEN A DIP 1 DENNISE OLMOS STICK/TAB PSC LET REAGNT NON-AUTO MICRSCPY LIPID 41775 LAB [facility] LAB [facility] PANEL 1 AMERIC AMERIC HOLDING HOLDING BLOOD 19235 LAB [facility] LAB [facility] COUNT 1 AMERIC AMERIC COMPLETE HOLDING HOLDING AUTO&AUTO DIFRNTL WBC BASIC 37092 LAB [facility] LAB [facility] METABOLIC 1 AMERIC AMERIC PANEL [place] [address] LAB [facility] LAB [facility] THYROID 1 AMERIC AMERIC STIMULATI HOLDING HOLDING NG HORMONE TSH CYTP C/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 THIN 1 Y SHIRLENE OF Y SHIRLENE OF LYR CHOLO CHOLO PREPJ SCR H H MNL RESCR PHYS BLOOD 28449 A C DENNISE Martinez OCCULT 1 DENNISE OLMOS PEROXIDAS PSC E ACTV QUAL FECES 1 DETER URINLS 69206 A C BOWDEN A DIP 1 DENNISE OLMOS STICK/TAB PSC LET REAGNT NON-AUTO MICRSCPY RADEX 03027 GUNNAR MAHER FOOT 0 [facility] COMPLETE INC INC MINIMUM 3 VIEWS RADEX 73901 GUNNAR MAHER ANKLE 0 [facility] COMPLETE INC INC MINIMUM 3 VIEWS RADEX 69563 GUNNAR MAHER ELBOW 0 [facility] COMPLETE INC INC MINIMUM 3 VIEWS URINLS 62709 A C BOWDEN A DIP 0 DENNISE OMLOS STICK/TAB PSC LET REAGNT NON-AUTO MICRSCPY GONADOTRO 47907 A C DENNISE Martinez PIN 0 DENNISE OLMOS CHORIONIC PSC QUANTITAT CRIS ADMN SET A7003 YOUR YOUR SM VOL 0 PHARMACY PHARMACY [facility] PNEUMAT NEBULIZR DISPBL URINLS 18478 A C BOWDEN A DIP 0 DENNISE OLMOS STICK/TAB PSC LET REAGNT NON-AUTO MICRSCPY BLOOD 26513 GUNNAR MAHER COUNT 0 [facility] COMPLETE INC INC AUTO&AUTO DIFRNTL WBC RPR 98380 GUNNAR MAHER UMBILICAL 0 [facility] HRNA 5 INC INC YRS/> [place] [address] GUNNAR MAHER INFUSION 0 [facility] THERAPY INC INC PROPHYLAX IS/DX EA HOUR ANESTHESI 61595 [facility] A HERNIA 0 ANESTH REPAIR OF THE UPPER BLUE ABDOMEN NOS THERAPEUT 16061 GUNNAR MAHER IC 0 [facility] INJECTION INC INC IV PUSH EACH NEW DRUG PRESSURIZ 06504 GUNNAR MAHER ED/NONPRE 0 [facility] SSURIZED [place] [address] GUNNAR MAHER INFUSION 0 [facility] THERAPY/P INC INC ROPHYLAXI S /DX 1ST TO 1 HR OTH & 5341 GUNNAR MAHER OPEN REP 0 [facility] UMBILICAL INC INC HERNIA W/GRAFT/P ROSTH ECG 54565 GUNNAR HOOK ROUTINE 0 [facility] W/LEAST P 12 LDS I&R ONLY BLOOD 76413 GUNNAR MAHER COUNT 0 [facility] COMPLETE INC INC AUTO&AUTO DIFRNTL WBC GONADOTRO 16159 GUNNAR MAHER PIN 0 [facility] CHORIONIC INC INC QUALITATI VE ECG 00101 GUNNAR MAHER ROUTINE 0 [facility] ECG INC INC W/LEAST 12 LDS TRCG ONLY W/O I&R URINLS 13705 Michelle BOWDEN A DIP 0 DENNISE OLMOS STICK/TAB PSC LET REAGNT NON-AUTO MICRSCPY ADMN SET A7003 YOUR YOUR SM VOL 0 PHARMAC[facility] PNEUMAT NEBULIZR DISPBL GONADOTRO 97822 Michelle BOWDEN, A PIN 0 DENNISE OLMOS C CHORIONIC PSC QUANTITAT CRIS 3D 21143 GUNNAR MAHER RENDERING 0 [facility] W/INTERP INC INC & [place] [address] LULÚ DICKINSON, HEAD/BRAI 0 MEDICAL JASMIN N W/O 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 MATERIAL S OPHTH 89377 ELYSE CAST, MEDICAL 0 VISION ARIK M XM&EVAL COMPRHNSV ESTAB PT 1/> [place] [address] LAB [facility] LAB [facility] THYROID 0 AMERIC AMERIC STIMULATI HOLDING HOLDING NG HORMONE TSH GONADOTRO 78419 LAB [facility] LAB [facility] PIN 0 AMERIC AMERIC LUTEINIZI [place] [address] LAB [facility] LAB [facility] PROLACTIN 0 AMERIC [employer] HOLDING THYROID 43189 LAB [facility] LAB [facility] HORM 0 AMERIC AMERIC UPTK/THYR HOLDING HOLDING OID HORMONE BINDING RATIO GONADOTRO 56650 LAB [facility] LAB [facility] PIN 0 AMERIC AMERIC FOLLICLE HOLDING [place] [address] LAB [facility] LAB [facility] THYROXINE 0 AMERIC [place] [address] LAB [facility] LAB [facility] ESTRADIOL 0 AMERIC [employer] HOLDING HOLDING US PELVIC 14402 GUNNAR GUNNAR 0 [facility] NONOBSTET INC [place] [address] GUNNAR MAHER TRANSVAGI 0 [facility] NAL INC INC ADMN SET A7003 YOUR YOUR SM VOL 0 PHARMACY PHARMACY [facility] PNEUMAT NEBULIZR DISPBL GONADOTRO 92168 GUNNAR MAHER PIN 0 [facility] CHORIONIC INC INC QUALITATI VE THERAPEUT 57547 GUNNAR MAHER IC PX 1/> 0 [facility] AREAS INC INC EACH 15 MIN EXERCISES APPLICATI 68275 GUNNAR MAHER ON 0 [facility] MODALITY INC INC 1/> AREAS HOT/COLD PACKS APPL 87407 GUNNAR MAHER MODALITY 0 [facility] 1/> AREAS INC INC IONTOPHOR ESIS EA 15 MIN APPL 92650 GUNNAR MAHER MODALITY 0 [facility] 1/> AREAS INC INC ELEC STIMJ UNATTENDE D APPL 60760 GUNNAR MAHER MODALITY 0 [facility] 1/> AREAS INC INC ELEC STIMJ UNATTENDE D APPLICATI 69183 GUNNAR MAHER ON 0 [facility] MODALITY INC INC 1/> AREAS HOT/COLD PACKS APPL 02491 GUNNAR MAHER MODALITY 0 [facility] 1/> AREAS INC INC IONTOPHOR ESIS EA 15 MIN APPL 32847 GUNNAR MAHER MODALITY 0 [facility] 1/> AREAS INC INC IONTOPHOR ESIS EA 15 MIN PHYSICAL 35655 GUNNAR MAHER THERAPY 0 [facility] EVALUATIO INC INC N THERAPEUT 28415 GUNNAR MAHER IC PX 1/> 0 [facility] AREAS INC INC EACH 15 MIN EXERCISES APPL 95419 GUNNAR MAHER MODALITY 0 [facility] 1/> AREAS INC INC ELEC STIMJ UNATTENDE D APPLICATI 51443 GUNNAR MAHER ON 0 [facility] MODALITY INC INC 1/> AREAS HOT/COLD PACKS RADEX 97360 [facility], RIBS UNI 0 MEDICAL JASMIN W/POSTERO IMAGING ANT CH ASSOCIATE MINIMUM 3 S VIEWS RADEX 36131 [facility] TEENA, SHOULDER 0 MEDICAL JASMIN COMPLETE IMAGING MINIMUM 2 ASSOCIATE VIEWS S ADMN SET A7003 YOUR YOUR SM VOL 9 PHARMACY PHARMACY [facility] PNEUMAT NEBULIZR DISPBL ECG 07489 A Mir BOWDEN A ROUTINE 9 DENNISE Hester ECG PSC W/LEAST 12 LDS W/I&R URINLS 44625 A Michelle BAIG DIP 9 DENNISE Hester STICK/TAB PSC LET REAGNT NON-AUTO MICRSCPY URINLS 89662 A Michelle BAIG DIP 9 DENNISE Hester STICK/TAB PSC LET REAGNT NON-AUTO MICRSCPY ADMN SET A7003 YOUR YOUR SM VOL 9 PHARMACY PHARMACY [facility] PNEUMAT NEBULIZR DISPBL SCREENING 81040 GUNNAR MAHER 9 [facility] MAMMOGRAP INC INC HY BILATERAL US PELVIC 09907 [place] Lloyd MEYER MEDICAL PAULETTE P NONOBSTET IMAGING CESAR ASSOCIATE [place] [address] GUNNAR MAHER TRANSVAGI 9 [facility] NAL INC INC COMPUTER- 20477 [place] BETSY [facility] 9 MEDICAL PAULETTE P DETECTION IMAGING ASSOCIATE SCREENING S MAMMOGRAP HY BLOOD 66538 A Mir COLLIN, OCCULT 9 DENNISE SAENZ PEROXIDAS PSC E ACTV QUAL FECES 1 DETER RADEX 71146 GUNNAR MAHER WRIST 9 [facility] COMPLETE INC INC MINIMUM 3 VIEWS URINLS 18077 A Mir BOWDEN, A DIP 9 DENNISE OLMOS C STICK/TAB PSC LET REAGNT NON-AUTO MICRSCPY URINE 44445 GUNNAR MAHER 9 [facility] TEST INC INC VISUAL COLOR CMPRSN METHS URNLS DIP 06556 GUNNAR MAHER 9 [facility] STICK/TAB INC INC LET REAGENT AUTO MICROSCOP Y RADEX 39122 GUNNAR MAHER HAND 9 [facility] MINIMUM 3 INC INC VIEWS ADMN SET A7003 YOUR YOUR SM VOL 9 [facility]ACY [facility] PNEUMAT NEBULIZR DISPBL URINLS 54643 Michelle DEWEY 9 DENNISE Hester STICK/TAB PSC LET REAGNT NON-AUTO MICRSCPY ADMN SET A7003 YOUR YOUR SM VOL 9 PHARMACY [facility] PNEUMAT NEBULIZR DISPBL ADMN SET A7003 YOUR YOUR SM VOL 9 PHARMACY [facility] PNEUMAT NEBULIZR DISPBL ADMN SET A7003 YOUR YOUR SM VOL 9 PHARMACY PHARMACY [facility] PNEUMAT NEBULIZR DISPBL ADMN SET A7003 YOUR YOUR SM VOL 8 [facility] [place] [address] DEVON CHEEMA 8 MEDICAL JASMIN NAL IMAGING ASSOCIATE S [place] PELVIC 33824 Chris CHEEMA MEDICAL JASMIN NONOBSTET IMAGING CESAR ASSOCIATE REAL-TIME S IMAGE COMPLETE [facility] [address] [facility] SAMMIE A SAMMIE A XM&EVAL COMPRE NEW PT 1/> VST ADMN SET A7003 YOUR YOUR SM VOL 8 [facility]ARMACY [facility]Y [facility] PNEUMAT NEBULIZR DISPBL SUSCEPTIB 42927 GUNNAR MAHER LTY STDY 8 [facility] ANTIMICRB INC INC IAL MICRO/AGA R DILUTJ URNLS DIP 89320 GUNNAR MAHER 8 [facility] STICK/TAB INC INC LET REAGENT AUTO MICROSCOP Y CULTURE 30181 GUNNAR MAHER BACTERIAL 8 [facility] INC INC QUANTTATI VE COLONY COUNT URINE ADMN SET A7003 YOUR YOUR SM VOL 8 [facility]AC[facility] PNEUMAT NEBULIZR DISPBL URINLS 49228 YENIFER PARKER 8 DENNISE SAENZ STICK/TAB PSC LET REAGNT NON-AUTO MICRSCPY CULTURE 99050 LAB [facility] LAB [facility] BACTERIAL 8 AMERIC [employer] HOLDING QUANTTATI VE COLONY COUNT URINE CULTURE 85856 GUNNAR MAHER BACTERIAL 8 [facility] INC INC QUANTTATI VE COLONY COUNT URINE URINE 85942 GUNNAR MAHER 8 [facility] TEST INC INC VISUAL COLOR CMPRSN METHS URNLS DIP 61594 GUNNAR JOHNSONON 8 [facility] STICK/TAB INC INC LET REAGENT AUTO MICROSCOP Y ADMN SET A7003 YOUR YOUR SM VOL 8 PHARMACY PHARMACY [facility] PNEUMAT NEBULIZR DISPBL Encounters Encounter Start End Date Code Location Performer Type Date OFFICE 15278 [facility] HÉCTOR OUTPATIEN 7 7 PHYSICIAN T VISIT S GROUP 15 MINUTES EMERGENCY 30149 [facility] RENUSC DEPT 6 6 PHYSICIAN VISIT [facility] HIGH SEVERITY& THREAT [facility] GUNNAR - 6 6 [facility] OUTPATIEN INC T OFFICE 56479 GUNNAR OUTPATIEN 6 6 [facility] 15 MINUTES EMERGENCY 72030 [facility] 6 6 PHYSICIAN [facility] DEPARTMEN [facility] T VISIT MODERATE SEVERITY OFFICE 84110 GUNNAR MIRANDA OUTPATIEN 6 6 [facility] VISIT HOSP[facility] 15 MINUTES OFFICE 51225 [facility] HENNA OUTPATIEN 6 6 PHYSICIAN STONE T VISIT S GROUP PA-C EUGENIE 25 MINUTES EMERGENCY 96970 [facility] 6 6 PHYSICIAN DORON VISIT [facility] HIGH [facility]VERITY& [facility]46 GUNNAR MATHUR OUTPATIEN 6 6 [facility] 15 MINUTES OFFICE 33877 GUNNAR SEVILLA OUTPATIEN 6 6 [facility] T VISIT HOSPITAL 15 MINUTES HOSPITAL GUNNAR - 6 6 [facility] OUTPATIEN INC T OFFICE 78362 [facility] RULA OUTPATIEN 6 6 PHYSICIAN CAM T VISIT S GROUP 10 MINUTES HOSPITAL GUNNAR - 6 6 [facility] OUTPATIEN INC T OFFICE 69621 [facility] JANAK OUTPATIEN 6 6 PHYSICIAN MAT T VISIT S GROUP 40 MINUTES EMERGENCY 87212 GUNNAR 6 6 [facility] DEPARTMEN INC T VISIT MODERATE SEVERITY [facility]OSPITAL GUNNAR - 6 6 [facility] OUTPATIEN INC T EMERGENCY 25862 LG REYES DEPT 6 6 PHYSICIAN VISIT S, [facility] HIGH SEVERITY& THREAT [facility] GUNNAR - 6 6 [facility] OUTPATIEN INC T OFFICE 65752 [facility] MARY OUTPATIEN 6 6 PHYSICIAN TERESA T VISIT S GROUP 15 MINUTES EMERGENCY 87685 GUNNAR 6 6 [facility] DEPARTMEN INC T VISIT HIGH/URGE NT SEVERITY EMERGENCY 42019 LG ABDUL DEPT 6 6 PHYSICIAN U ANNALEE VISIT [facility] HIGH SEVERITY& THREAT [facility] GUNNAR - 6 6 [facility] OUTPATIEN INC T EMERGENCY 91226 LG MIRANDA 5 5 PHYSICIAN TERESA DEPARTMEN S, [facility] T VISIT LOW/MODER SEVERITY HOSPITAL GUNNAR - 5 5 [facility] OUTPATIEN INC T EMERGENCY 81587 GUNNAR 5 5 [facility] DEPARTMEN INC T VISIT LIMITED/M INOR PROB HOSPITAL GUNNAR - 5 5 [facility] OUTPATIEN INC T HOSPITAL GUNNAR - 5 5 [facility] OUTPATIEN INC T OFFICE 04181 [facility] OUTPATIEN 5 5 PHYSICIAN T VISIT S GROUP 10 MINUTES OFFICE 49981 [facility] MARY OUTPATIEN 4 4 PHYSICIAN TERESA T VISIT S GROUP 10 MINUTES HOSPITAL GUNNAR - 4 4 [facility] OUTPATIEN INC T EMERGENCY 50022 GUNNAR 4 4 [facility] DEPARTMEN INC T VISIT LOW/MODER SEVERITY HOSPITAL GUNNAR - 4 4 [facility] OUTPATIEN INC T OFFICE 42803 [facility] MARY OUTPATIEN 4 4 PHYSICIAN TERESA T VISIT S GROUP 25 MINUTES HOSPITAL GUNNAR - 4 4 [facility] OUTPATIEN INC T OFFICE 44371 [facility] MARY OUTPATIEN 4 4 PHYSICIAN TERESA T VISIT S GROUP 10 MINUTES HOSPITAL GUNNAR - 4 4 [facility] OUTPATIEN INC T HOSPITAL GUNNAR - 3 3 [facility] OUTPATIEN INC [facility]OSPITAL GUNNAR - 3 3 [facility] OUTPATIEN INC T OFFICE 64221 FIELD AMB FIELD AMB OUTPATIEN 3 3 T VISIT 15 MINUTES OFFICE 33661 FIELD AMB FIELD AMB OUTPATIEN 3 3 T VISIT 15 MINUTES OFFICE 15309 Michelle CRAWLEY OUTPATIEN 3 3 DENNISE OLMOS JEMichelle T VISIT PSC 15 MINUTES Emergency JORGE A Miranda MD (ER) 3 19:39 3 21:13 [facility] GUNNAR - 3 3 [facility] OUTPATIEN INC T EMERGENCY 61795 MARY MIRANDA 3 3 TERESA TERESA DEPARTMEN T VISIT HIGH/URGE NT SEVERITY EMERGENCY 04601 GUNNAR 3 3 [facility] DEPARTMEN INC T VISIT LOW/MODER SEVERITY OFFICE 10811 J CARLOS WHITMAN PRITI OUTPATIEN 3 3 T NEW 30 MINUTES EMERGENCY 33280 GUNNAR 2 2 [facility] DEPARTMEN INC T VISIT LOW/MODER SEVERITY EMERGENCY 47149 KEV ANGULO 2 2 III SAL[place] III [place] DEPARTMEN T VISIT HIGH/URGE NT SEVERITY HOSPITAL GUNNAR - 2 2 [facility] OUTPATIEN INC T OFFICE 92944 KILPELA KILPELA OUTPATIEN 2 2 CHARLES JEA T VISIT 15 MINUTES OFFICE 41421 KILPELA KILPELA OUTPATIEN 2 2 JEMichelle JEA T VISIT 15 MINUTES OFFICE 23320 KILPELA KILPELA OUTPATIEN 2 2 JEMichelle JEA T VISIT 15 MINUTES OFFICE 72149 COLLIN COLLIN OUTPATIEN 2 2 CESAR CESAR T VISIT 15 MINUTES OFFICE 04951 COLLIN COLLIN OUTPATIEN 2 2 CESAR CESAR T VISIT 15 MINUTES HOSPITAL GUNNAR - 2 2 [facility] OUTPATIEN INC T OFFICE 41816 NUNN NUNN OUTPATIEN 2 2 OSWALDO OSWALDO T NEW 30 MINUTES EMERGENCY 59402 LACHELLE MIRANDA 2 2 EMERGENCY [facility] DEPARTMEN SERVICES T VISIT MODERATE SEVERITY HOSPITAL GUNNAR - 2 2 [facility] OUTPATIEN INC T EMERGENCY 12639 GUNNAR 2 2 [facility] DEPARTMEN INC T VISIT LOW/MODER SEVERITY OFFICE 29729 COLLIN COLLIN OUTPATIEN 2 2 CESAR CESAR T VISIT 25 MINUTES HOSPITAL GUNNAR - 2 2 [facility] OUTPATIEN INC T OFFICE 29883 ARGENIS NEDRA MIKEES NEDRA OUTPATIEN 2 2 T VISIT 15 MINUTES HOSPITAL GUNNAR - 2 2 [facility] OUTPATIEN INC T INITIAL 96885 SPIREK SPIREK PREVENTIV 1 1 ANI ANI E MEDICINE NEW PATIENT 40-64YRS OFFICE 48891 COLLIN COLLIN OUTPATIEN 1 1 CESAR CESAR T VISIT 15 MINUTES HOSPITAL GUNNAR - 1 1 [facility] OUTPATIEN INC T EMERGENCY 53413 LACHELLE MIRANDA 1 1 EMERGENCY [facility] DEPARTMEN SERVICES T VISIT MODERATE SEVERITY EMERGENCY 53710 GUNNAR 1 1 [facility] T VISIT LIMITED/M INOR PROB OFFICE 90185 A C COLLIN OUTPATIEN 1 1 DENNISE GUERRERO T VISIT PSC 25 MINUTES OFFICE 42884 A C BOWDEN A OUTPATIEN 1 1 DENNISE OLMOS T VISIT PSC 15 MINUTES OFFICE 77457 A C OUTPATIEN 1 1 DENNISE OLMOS T VISIT PSC 15 MINUTES PERIODIC 32953 A C BOWDEN A PREVENTIV 1 1 DENNISE OLMOS E MED EST PSC PATIENT 40-64YRS OFFICE 19444 A C DENNISE A OUTPATIEN 1 1 DENNISE OLMOS T VISIT 5 PSC MINUTES HOSPITAL [facility] - 1 1 [facility] T EMERGENCY 05435 LACHELLE ANGULO 1 1 EMERGENCY [facility] SERVICES T VISIT HIGH/URGE NT SEVERITY EMERGENCY 84241 GUNNAR 1 1 [facility] T VISIT LOW/MODER SEVERITY HOSPITAL GUNNAR - 0 0 [facility] T OFFICE 56887 A C BOWDEN A OUTPATIEN 0 0 DENNISE OLMOS T VISIT PSC 15 MINUTES OFFICE 11863 A C BOWDEN A OUTPATIEN 0 0 DENNISE OLMOS T VISIT PSC 25 MINUTES EMERGENCY 99891 [facility] T VISIT MODERATE SEVERITY EMERGENCY 28456 LACHELLE MIRANDA 0 0 EMERGENCY [facility] T VISIT HIGH/URGE NT SEVERITY HOSPITAL GUNNAR - 0 0 [facility] T HOSPITAL GUNNAR [facility] 0 0 [facility] T HOSPITAL GUNNAR - 0 [facility] T OFFICE 08116 RULA JONESRON CONSULTAT 0 0 NAOMI NAOMI ION NEW/ESTAB PATIENT 60 MIN OFFICE 51563 Michelle Martinez OUTPATIEN 0 0 DENNISE OLMOS T VISIT PSC 25 MINUTES OFFICE 89142 Michelle DEWEY OUTPATIEN 0 0 DENNISE Hester T VISIT PSC 15 MINUTES [facility]OSPITAL [facility] - 0 0 [facility] OUTPATIEN [facility] T OFFICE 04449 Michelle DEWEY OUTPATIEN 0 0 DENNISE Hester T VISIT PSC 25 MINUTES HOSPITAL [facility] - 0 0 [facility] OUTPATIEN [facility] T OFFICE [id number] Michelle DEWEY OUTPATIEN 0 0 DENNISE Hester T VISIT PSC 25 MINUTES [facility] GUNNAR - 0 0 [facility] OUTPATIEN [facility] T OFFICE 79700 Michelle DEWEY OUTPATIEN 0 0 DENNISE Hester T VISIT PSC 15 MINUTES HOSPITAL G[facility]AR - 0 0 [facility] OUTPATIEN [facility] GUNNAR - 0 0 [facility] OUTPATIEN [facility] T OFFICE [id number] Michelle DEWEY OUTPATIEN 0 0 DENNISE Hester T VISIT PSC 15 MINUTES EMERGENCY [id number] LACHELLE WALL, 0 0 EMERGENCY [facility] SERVICES O T VISIT HIGH/URGE ASSOCIATE NT S SEVERITY [facility] GUNNAR - 0 0 [facility] OUTPATIEN [facility] T OFFICE 77970 Michelle DEWEY OUTPATIKODI 9 9 DENNISE Hester T VISIT PSC 25 MINUTES OFFICE 39775 Michelle DEWEY 9 9 DENNISE Hester T VISIT PSC 15 MINUTES HOSPITAL [facility] - 9 9 [facility] OUTPATIEN [facility] T OFFICE [id number] Michelle DEWEY 9 9 DENNISE Hester T VISIT PSC 25 MINUTES OFFICE 50662 Michelle DEWEY 9 9 DENNISE Hester T VISIT PSC 15 MINUTES [facility] - 9 9 [facility] T EMERGENCY 45525 LACHELLE MELENDEZ, 9 9 EMERGENCY [facility] SERVICES T VISIT MODERATE ASSOCIATE SEVERITY [facility] GUNNAR - 9 9 [facility] T EMERGENCY 16704 GUNNAR 9 9 [facility] INC T VISIT LOW/MODER SEVERITY OFFICE 73309 Michelle DEWEY 9 9 DENNISE Hester T VISIT PSC 25 MINUTES OFFICE 58054 ANGELIA PARKER 8 8 DENNISE SAENZ T VISIT PSC 15 MINUTES EMERGENCY 43660 RASHAD BEST, 8 8 [facility] T VISIT ON LOW/MODER SEVERITY [facility]NAR - 8 8 [facility] OUTPATIEN INC T EMERGENCY 17741 GUNNAR 8 8 [facility] T [facility]ISIT LIMITED/M [facility] GUNNAR - 8 8 [facility] OUTPATIEN INC T OFFICE 14030 Michelle DEWEY 8 8 DENNISE Hester T VISIT PSC 15 MINUTES EMERGENCY 11763 GUNNAR ADEN, 8 8 [facility] T VISIT PROF SERV LOW/MODER SEVERITY [facility] - 8 8 [facility] OUTPATIEN INC T OFFICE 30011 Michelle DEWEY 8 8 DENNISE Hester T VISIT PSC 15 MINUTES OFFICE 75945 ANGELIA PARKER 8 8 DENNISE SAENZ T VISIT PSC 15 MINUTES [facility] - 8 8 [facility] T EMERGENCY 77490 GUNNAR 8 8 [facility] T VISIT MODERATE SEVERITY OFFICE 12901 ANGELIA PARKER 8 8 DENNISE Eastman VISIT PSC 25 MINUTES
[2017-03-30 19:03] LABS: HEMOGLOBIN 13.8 g/dL (12.2-16.2); LYMPH # 2.9 K/mm3 (0.7-4.5); LYMPH % 33.5 % (10-50.0)
--- OUTSIDE RECORDS SUMMARY | 2017-03-30 19:13 | External Medical Summary Rpt ---
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 TE 81 t ti XE 37 1- 6- 00 08 Av ve TI 11 20 20 AI ai NE 59 08 08 D la 8 PH bl HC AR e L M 20 #3 93 MG 8 TA BL ET RA 00 01 03 00 60 30 RI 71 No Ac NI 17 -2 -2 .0 TE 81 t ti TI 24 1- 6- 00 07 Av ve DI 35 20 20 AI ai NE 74 08 08 D la 9 PH bl 15 AR e 0 M MG #3 93 TA 8 BL ET IM 00 02 03 00 9. 30 RI 71 No Ac IT 17 -0 -2 00 TE 88 t ti RE 30 7- 6- 0 89 Av ve X 73 20 20 AI ai 10 70 08 08 D la 0 1 PH bl MG AR e M TA #3 BL 93 ET 8 PA 00 01 03 00 30 30 RI 71 No Ac RO 09 -2 -2 .0 TE 59 t ti XE 37 1- 5- 00 82 Av ve TI 11 20 20 AI ai NE 59 08 08 D la 8 PH bl HC AR e L M 20 #3 93 MG 8 TA BL ET NM 50 01 03 00 30 30 RI 71 No Ac OP 11 -2 -2 .0 TE 59 t ti RA 10 1- 5- 00 86 Av ve NO 46 20 20 AI ai LO 90 08 08 D la L 3 PH bl 40 AR e M MG #3 93 TA 8 BL ET CY 00 01 03 00 30 30 RI 71 No Ac CL 37 -2 -2 .0 TE 59 t ti OB 80 1- 5- 00 83 Av ve EN 75 20 20 AI ai ZA 10 08 08 D la NM 1 PH bl IN AR e E M 10 #3 93 MG 8 TA BL ET 49 03 03 05 18 30 YO 13 No Ac 50 -2 -2 0. UR 06 t ti 20 0- 5- 00 2 Av ve 69 20 20 0 PH ai 76 07 08 AR la 1 MA bl CY e NM 00 01 03 00 6. 30 RI 71 No Ac OV 08 -2 -2 70 TE 59 t ti EN 51 1- 5- 0 85 Av ve TI 13 20 20 AI ai L 20 08 08 D la HF 1 PH bl A AR e 90 M #3 MC 93 G 8 IN FORTE LE R RA 00 01 03 00 60 30 RI 71 No Ac NI 17 -2 -2 .0 TE 59 t ti TI 24 1- 5- 00 84 Av ve DI 35 20 20 AI ai NE 74 08 08 D la 9 PH bl 15 AR e 0 M MG #3 93 TA 8 BL ET PE 00 01 03 00 59 1 RI 71 No Ac RM 47 -2 -2 .0 TE 60 t ti ET 25 2- 5- 00 98 Av ve HR 24 20 20 AI ai IN 26 08 08 D la 7 PH bl 1% AR e M LO #3 TI 93 ON 8 Immunization Name Date Route CVX Reacti Commen Provid Is Given on t er Refuse d TDAP [place] No VACCIN 2014 ON MEM E 7 HOSP YRS/> INC IM Procedures Procedure DOS Code Location Performer Comment ADMN SET A7003 [facility] SM [facility] DISPBL ADMN SET A7003 [facility] SM [facility] RADIOLOGI 98378 [place] DIETZ ALL C EXAM 6 MEDICAL CHEST 2 IMAGING VIEWS ASS FRONTAL&L ATERAL COLLECTIO 48587 [facility] N VENOUS 6 [facility] BLOOD INC INC VENIPUNCT URE COMPREHEN 10897 [facility] SIVE 6 [facility] [address] [facility] THYROID 6 [facility] STIMULATI INC INC NG HORMONE TSH HEMOGLOBI 26675 [facility] N 6 [facility] GLYCOSYLA INC INC RADHIKA A1C BLOOD 39029 [facility] COUNT 6 [facility] COMPLETE INC INC AUTO&[place] [address] [facility] MA[facility] THYROXINE 6 [facility] TOTAL INC INC ADMN SET A7003 YOUR YOUR SM VOL 6 [facility] P[facility] NEBULIZR DISPBL ADMN SET A7003 YOUR YOUR SM VOL 6 [facility]ARMACY PHARMACY [facility] PNEUMAT NEBULIZR DISPBL ADMN SET A7003 YOUR YOUR SM VOL 6 [facility] PNE[facility] NEBULIZR DISPBL FILTER A7013 YOUR YOUR DISPOSABL 6 PHARMACY PHARMACY [facility] W/AREOSOL COMPRESS/ US GENERATOR ADMN SET A7003 YOUR YOUR SM VOL 6 [facility] PNE[facility] NEBULIZR DISPBL ADMN SET A7003 YOUR YOUR SM VOL 6 [facility] P[facility] NEBULIZR DISPBL OPHTH 05972 SCIFRES SCIFRES MEDICAL 6 ANG ANG XM&EVAL COMPRHNSV ESTAB PT 1/> ADMN SET A7003 YOUR YOUR SM VOL 6 [facility]ARMACY PHARMACY [facility] PNEUMAT NEBULIZR DISPBL SHOULDER L3650 [facility] 6 TECHNOLOG TECHNOLOG FIG 8 IES INC IES INC ABDUCT RESTRAINE R PREFAB COLLECTIO 63090 [facility] N VENOUS 6 [facility] BLOOD INC INC VENIPUNCT URE LIPID 21432 [facility] PANEL 6 [facility] INC INC ECG 42433 [facility] JANAK ROUTINE 6 PHYSICIAN MAT ECG S GROUP W/LEAST 12 LDS I&R ONLY ECG 31757 [facility] ROUTINE 6 [facility] ECG INC INC W/LEAST 12 LDS TRCG ONLY W/O I&R COMPREHEN 86545 [facility] SIVE 6 [facility] METABOLIC INC INC PANEL CREATINE 90878 G[facility]NAR MA[facility] KINASE MB 6 [facility] FRACTION INC INC ONLY CREATINE 53909 [facility] KINASE 6 [facility] TOTAL INC INC ECG 48515 [facility] MA[facility] ROUTINE 6 [facility] ECG INC INC W/LEAST 12 LDS TRCG ONLY W/O I&R ECG 56517 [facility] NE[facility]ONSON ROUTINE 6 NEDRA NEDRA ECG W/LEAST 12 LDS I&R ONLY ECHO 93517 [facility] 6 MEDICAL 2D SERV W/WOM-MOD FOUNDATIO E COMPL N SPEC&[place] [address] [facility] TROPONIN 6 [facility] QUANTITAT INC INC CRIS BLOOD 04562 [facility] MA[facility] COUNT 6 [facility] COMPLETE INC INC AUTO&AUTO DIFRNTL WBC RADIOLOGI 77440 [facility] C EXAM 6 [facility] CHEST 2 INC INC VIEWS FRONTAL&L ATERAL ECG 83243 [facility] ROUTINE 6 [facility] ECG INC INC W/LEAST 12 LDS TRCG ONLY W/O I&R CREATINE 79422 [facility] KINASE 6 [facility] TOTAL INC INC THER 24658 [facility] MA[facility] PROPH/DX 6 [facility] NJX IV INC INC PUSH SINGLE/1S T SBST/[place] [address] [facility] MA[facility] TROPONIN 6 [facility] QUANTITAT INC INC CRIS BLOOD 80218 GUNNAR GUNNAR COUNT 6 [facility] COMPLETE INC INC AUTO&AUTO DIFRNTL WBC RADIOLOGI 86768 [facility] C EXAM 6 [facility] CHEST 2 INC INC VIEWS FRONTAL&L ATERAL RADEX 77557 [facility] MA[facility] SHOULDER 6 [facility] COMPLETE INC INC MINIMUM 2 VIEWS THERAPEUT 11826 GUNNAROZZY MAHER IC 6 [facility] INJECTION INC INC IV PUSH EACH NEW DRUG ECG 23629 HAYDEE JR HAYDEE JR ROUTINE 6 DWI DWI ECG W/LEAST 12 LDS I&R ONLY SHOULDER L3650 [facility] 6 TECHNOLOG TECHNOLOG FIG 8 IES INC IES INC ABDUCT RESTRAINE R PREFAB ECG 47674 [facility] MHAER ROUTINE 6 [facility] ECG INC INC W/LEAST 12 LDS TRCG ONLY W/O I&R COMPREHEN 50878 [facility] MAHER SIVE 6 [facility] METABOLIC INC INC PANEL CREATINE 54450 GUNNAR MAHER KINASE MB 6 [facility] FRACTION INC INC ONLY ADMN SET A7003 YOUR YOUR SM VOL 6 [facility] PNEUMAT NEBULIZR DISPBL ADMN SET A7003 YOUR YOUR SM VOL 5 PHARMACY PHARMACY NONFILTR [facility] PNEUMAT NEBULIZR DISPBL COMPUTER- 29271 [facility] AIDED 5 MEDICAL ANNALEE DETECTION IMAGING ASS SCREENING MAMMOGRAP HY SCREENING G0202 [place] [address] MEDICAL ANNALEE MAMMOGRAP IMAGING HY WILTON ASS INCL CAD WHEN PERFORMD MRI 97992 [facility] MA[facility] SPINAL 5 [facility] CANAL INC INC CERVICAL W/O CONTRAST MATRL ADMN SET A7005 YOUR YOUR W/SM VOL 5 PHARMACY PHARMACY NONFILTR [facility] NEBULIZR NON-DISPB L RADEX 28276 [place] TEENA HAND 4 MEDICAL FOREIGN MINIMUM 3 IMAGING VIEWS ASS TDAP 77063 [facility]HER VACCINE 7 4 [facility] YRS/> IM INC INC IM ADM 56321 [facility] PRQ ID 4 [facility] SUBQ/IM INC INC NJXS 1 VACCINE CULTURE 89804 [facility] BACTERIAL 4 [facility] INC INC QUANTTATI VE COLONY COUNT URINE ADMN SET A7005 YOUR YOUR W/SM VOL 4 PHARMACY PHARMACY [facility] NEBULIZR NON-DISPB L RADEX 96351 [facility] SPINE 4 MEDICAL FOREIGN LUMBOSACR IMAGING AL 2/3 ASS VIEWS THERAPEUT 65558 [facility] IC 4 [facility] PROPHYLAC INC INC TIC/DX INJECTION SUBQ/IM THERAPEUT 24667 GUNN[facility] MAHER IC PX 1/> 3 [facility] AREAS INC INC EACH 15 MIN EXERCISES APPL 93787 GUNNAR MAHER MODALITY 3 [facility] 1/> AREAS INC INC ELEC STIMJ UNATTENDE D APPL 64482 GUN[facility]AR MAHER MODALITY 3 [facility] 1/> AREAS INC INC ULTRASOUN D EA 15 MIN APPL 94376 GUNNAR MAHER MODALITY 3 [facility] 1/> AREAS INC INC ULTRASOUN D EA 15 MIN THERAPEUT 98086 GUNNAR MAHER IC PX 1/> 3 [facility] AREAS INC INC EACH 15 MIN EXERCISES APPL 10509 GUNNAR MAHER MODALITY 3 [facility] 1/> AREAS INC INC ELEC STIMJ UNATTENDE D THERAPEUT 77445 GUNNAR MAHER IC PX 1/> 3 [facility] AREAS INC INC EACH 15 MIN EXERCISES APPL 81916 GUNNAR MAHER MODALITY 3 [facility] 1/> AREAS INC INC ELEC STIMJ UNATTENDE D APPL 22507 [facility]AR MAHER MODALITY 3 [facility] 1/> AREAS INC INC ELEC STIMJ UNATTENDE D THERAPEUT 81203 G[facility]NAR MAHER IC PX 1/> 3 [facility] AREAS INC INC EACH 15 MIN EXERCISES PHYSICAL 44145 [facility] MAHER THERAPY 3 [facility] EVALUATIO INC INC N URINLS 37231 FIELD AMB FIELD AMB DIP 3 STICK/TAB LET REAGNT NON-AUTO MICRSCPY IADNA 20534 LAB [facility] CHLAMYDIA 3 [facility] [employer] HOLDINGS TRACHOMAT IS AMPLIFIED PROBE TQ IADNA 29193 [facility] NEISSERIA 3 [facility] GONORRHOE AE AMPLIFIED PROBE TQ OPHTH 86069 [facility] 3 XM&EVAL COMPRHNSV ESTAB PT 1/> [place] [address] [facility] THYROID 3 DIAGNOSTI DIAGNOSTI STIMULATI CS CS NG HORMONE TSH COLLECTIO 00747 FIELD AMB FIELD AMB N VENOUS 3 BLOOD VENIPUNCT URE TRANSFERA 76266 FIELD AMB FIELD AMB SE 3 [place] [address] FIELD AMB FIELD AMB TRIGLYCER 3 IDES TRANSFERA 71882 FIELD AMB FIELD AMB SE 3 ALANINE AMINO ALT SGPT LIPOPROTE 60409 FIELD AMB FIELD AMB IN DIR 3 CONSTANCE HIGH DENSITY CHOLESTER OL URINLS 52292 FIELD AMB FIELD AMB DIP 3 STICK/TAB LET REAGNT NON-AUTO MICRSCPY BASIC 64177 [facility] METABOLIC 3 DIAGNOSTI DIAGNOSTI PANEL CS CS CALCIUM TOTAL BLOOD 24137 FIELD AMB FIELD AMB COUNT 3 COMPLETE AUTO&AUTO DIFRNTL WBC GLUCOSE 36471 FIELD AMB FIELD AMB QUANTITAT 3 CRIS BLOOD XCPT REAGENT STRIP CHOLESTER 74777 FIELD AMB FIELD AMB OL 3 SERUM/WHO LE BLOOD TOTAL URINLS 19289 A C MISBAH DIP 3 DENNISE OLMOS JEMichelle STICK/TAB PSC LET REAGNT NON-AUTO MICRSCPY RADEX 30676 TEENA TEENA HUMERUS 3 FOREIGN FOREIGN MINIMUM 2 VIEWS RADEX 62374 TEENA TEENA HAND 3 FOREIGN FOREIGN MINIMUM 3 VIEWS RADEX 95164 TEENA TEENA SPINE 3 FOREIGN FOREIGN LUMBOSACR AL MINIMUM 4 VIEWS RADIOLOGI 78878 [facility] Hester 3 [facility] EXAMINATI INC INC ON PELVIS 1/2 VIEWS ADMN SET A7003 YOUR YOUR SM VOL 3 PHARMACY PH[facility]AC[facility] PNEUMAT NEBULIZR DISPBL ADMN SET A7003 YOUR YOUR SM VOL 3 PHARMACY PH[facility]AC[facility] PNEUMAT NEBULIZR DISPBL ADMN SET A7003 YOUR YOUR SM VOL 3 PHARMACY [facility] PNEUMAT NEBULIZR DISPBL ADMN SET A7003 YOUR YOUR SM VOL 2 PHARMACY PHARMACY NONFILTR [facility] PNEUMAT NEBULIZR DISPBL RADIOLOGI 01476 [place] TEENA C EXAM 2 MEDICAL FOREIGN CHEST 2 IMAGING VIEWS ASS FRONTAL&L ATERAL URINLS 80136 KILPELA KILPELA DIP 2 JEA JEA STICK/TAB LET REAGNT NON-AUTO MICRSCPY ADMN SET A7003 YOUR YOUR SM VOL 2 [facility] PNEUMAT NEBULIZR DISPBL ADMN SET A7003 YOUR YOUR SM VOL 2 PHARMACY PHARMACY NONFILTR [facility] PNEUMAT NEBULIZR DISPBL URNLS DIP 73203 EDOUARD NUNN 2 OSWALDO OSWALDO STICK/TAB LET RGNT NON-AUTO W/O MICRSCP COMPUTER- 87726 [facility] AIDED 2 [facility] [place] [address] [place] TEENA TRANSVAGI 2 MEDICAL FOREIGN NAL IMAGING ASS SCREENING G0202 [facility] MAHER 2 [facility] MAMMOGRAP INC INC HY WILTON INCL CAD WHEN PERFORMD DETERMINA 10867 LACHELLE LAROSE TION 2 GRE GRE REFRACTIV E STATE OPHTH 05985 [facility] 2 GRE GRE XM&EVAL COMPRE NEW PT 1/> VST NEBULIZER E0570 [facility] METZGER WITH 2 HOME HOME COMPRESSO MEDICAL MEDICAL R EQUIPME EQUIPME ADMN SET A7003 YASSINE METZGER SM VOL 2 HOME HOME NONFILTR MEDICAL MEDICAL PNEUMAT [place] [address] G[facility]HER ABDOMINAL 2 [facility] REAL INC INC TIME W/IMAGE LIMITED RADEX 98659 [facility] MAHER SPINE 2 [facility] LUMBOSACR INC INC AL MINIMUM 4 VIEWS BLOOD 56976 SPIREK SPIREK OCCULT 1 ANI ANI FECAL HGB DETER IA QUAL FECES 1-3 URINE 63675 SPIREK SPIREK 1 ANI ANI TEST VISUAL COLOR CMPRSN METHS IADNA 19441 PATHOLOGY PATHOLOGY PAPILLOMA 1 & & VIRUS CYTOLOGY CYTOLOGY HUMAN LAB LAB AMPLIFIED PROBE TQ CYTP C/V 54665 PATHOLOGY PATHOLOGY AUTO THIN 1 & & LYR CYTOLOGY CYTOLOGY PREPJ SCR LAB LAB MNL RESCR PHYS GONADOTRO 10590 COLLIN COLLIN PIN 1 CESAR CESAR CHORIONIC QUANTITAT CRIS URINLS 21187 COLLIN COLLIN DIP 1 CESAR CESAR STICK/TAB LET REAGNT NON-AUTO MICRSCPY ADMN SET A7003 YOUR YOUR SM VOL 1 PHARMACY PHARMACY [facility] PNEUMAT NEBULIZR DISPBL ADMN SET A7003 YOUR YOUR SM VOL 1 PHARMACY PHARMACY [facility] PNEUMAT NEBULIZR DISPBL URINLS 72246 A C COLLIN DIP 1 DENNISE OLMOS CESAR STICK/TAB PSC LET REAGNT NON-AUTO MICRSCPY URINLS 95718 A C DENNISE A DIP 1 DENNISE OLMOS STICK/TAB PSC LET REAGNT NON-AUTO MICRSCPY BASIC 95461 LAB [facility] METABOLIC 1 AMERIC AMERIC PANEL [place] [address] LAB [facility] THYROID 1 AMERIC AMERIC STIMULATI HOLDING HOLDING NG HORMONE TSH BLOOD 10495 [facility] COUNT 1 AMERIC AMERIC COMPLETE HOLDING HOLDING AUTO&AUTO DIFRNTL WBC LIPID 14131 [facility] PANEL 1 AMERIC AMERIC HOLDING HOLDING BLOOD 90704 A C DENNISE Martinez OCCULT 1 DENNISE OLMOS PEROXIDAS PSC E ACTV QUAL FECES 1 DETER CYTP C/V 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 THIN 1 Y SHIRLENE OF Y SHIRLENE OF LYR CHOLO CHOLO PREPJ SCR H H MNL RESCR PHYS URINLS 42659 A C DENNISE A DIP 1 DENNISE OLMOS STICK/TAB PSC LET REAGNT NON-AUTO MICRSCPY URINLS 34574 A C BOWDEN A DIP 0 DENNISE OLMOS STICK/TAB PSC LET REAGNT NON-AUTO MICRSCPY RADEX 83765 [place] BETSY ELBOW 0 MEDICAL [place] COMPLETE IMAGING MINIMUM 3 ASS VIEWS RADEX 16934 [place] BETSY ANKLE 0 MEDICAL [place] COMPLETE IMAGING MINIMUM 3 ASS VIEWS RADEX 81667 [place] BETSY FOOT 0 MEDICAL [place] COMPLETE IMAGING MINIMUM 3 ASS VIEWS GONADOTRO 63549 A C BOWDEN A PIN 0 DENNISE OLMOS CHORIONIC PSC QUANTITAT CRIS ADMN SET A7003 YOUR YOUR SM VOL [facility] NE[facility]UL[facility] DISPBL URINLS 15017 A C BOWDEN A DIP 0 DENNISE OLMOS STICK/TAB PSC LET REAGNT NON-AUTO MICRSCPY BLOOD 37655 [facility] COUNT 0 [facility] COMPLETE INC INC AUTO&[place] [address] G[facility] MAHER INFUSION 0 [facility] THERAPY/P INC INC ROPHYLAXI S /DX 1ST TO 1 HR PRESSURIZ 51867 [facility] MA[facility] ED/NONPRE 0 [facility] SSURIZED INC INC INHALATIO N TREATMENT THERAPEUT 43583 [facility] IC 0 [facility] INJECTION INC INC IV PUSH EACH NEW DRUG OTH & 5341 [facility] OPEN REP 0 [facility] UMBILICAL INC INC HERNIA W/GRAFT/P ROSTH RPR 40573 [facility] UMBILICAL 0 NAOMI NAOMI HRNA 5 YRS/> [place] [address] G[facility]NAR MAHER INFUSION 0 [facility] THERAPY INC INC PROPHYLAX IS/DX EA HOUR ANESTHESI 17243 [facility] [place] A HERNIA 0 ANESTH REPAIR OF THE UPPER BLUE ABDOMEN NOS ECG 57109 G[facility] MAHER ROUTINE 0 [facility] ECG INC INC W/LEAST 12 LDS TRCG ONLY W/O I&R ECG 01108 GUNNAR HOOK ROUTINE 0 [facility] W/LEAST P 12 LDS I&R ONLY GONADOTRO 24575 G[facility]AR MAHER PIN 0 [facility] CHORIONIC INC INC QUALITATI VE BLOOD 15124 G[facility]AR MAHER COUNT 0 [facility] COMPLETE INC INC AUTO&AUTO DIFRNTL WBC URINLS 17169 Michelle Martinez DIP 0 DENNISE OLMOS STICK/TAB PSC LET REAGNT NON-AUTO MICRSCPY ADMN SET A7003 YOUR YOUR SM VOL 0 PHARMACY PHARMACY NONFIL[facility]api [facility] PNEUMAT NEBULIZR DISPBL GONADOTRO 52308 Michelle BOWDEN, Michelle PIN 0 DENNISE OLMOS C CHORIONIC PSC QUANTITAT CRIS 3D 38242 [facility], RENDERING 0 MEDICAL JASMIN W/INTERP IMAGING & [place] [address] [facility], HEAD/BRAI 0 MEDICAL JASMIN N W/O 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 MATERIAL S OPHTH 76872 ELYSE CAST, MEDICAL 0 VISION ARIK M XM&EVAL COMPRHNSV ESTAB PT 1/> [place] [address] LAB [facility] THYROID 0 AMERIC AMERIC STIMULATI HOLDING HOLDING NG HORMONE TSH GONADOTRO 50015 LAB [facility] PIN 0 AMERIC AMERIC LUTEINIZI [place] [address] LAB [facility] ESTRADIOL 0 [place] [place] [address] LAB [facility] THYROXINE 0 AMERIC AMERIC TOTAL HOLDING HOLDING GONADOTRO 26066 [facility] PIN 0 AMERIC AMERIC FOLLICLE HOLDING HOLDING STIMULATI NG HORMONE THYROID 97646 [facility] HORM 0 AMERIC AMERIC UPTK/THYR HOLDING HOLDING [place] [address] LAB [facility] PROLACTIN 0 AMERIC AMERIC HOLDING HOLDING [place] PELVIC [address] [place] BETSY, 0 MEDICAL PAULETTE P NONOBSTET IMAGING CESAR [place] [address] [facility]YER TRANSVAGI 0 MEDICAL PAULETTE P NAL IMAGING ASSOCIATE S ADMN SET A7003 YOUR YOUR SM VOL 0 [facility] PNEUMAT NEBULIZR DISPBL GONADOTRO 73094 [facility] MAHER PIN 0 [facility] CHORIONIC INC INC QUALITATI VE APPL 38102 GUNNAR MAHER MODALITY 0 [facility] 1/> AREAS INC INC ELEC STIMJ UNATTENDE D APPL 18654 [facility] MODALITY 0 [facility] 1/> AREAS INC INC IONTOPHOR ESIS EA 15 MIN THERAPEUT 60881 [facility] IC PX 1/> 0 [facility] AREAS INC INC EACH 15 MIN EXERCISES APPLICATI 29212 [facility] ON 0 [facility] MODALITY INC INC 1/> AREAS HOT/COLD PACKS APPL 89640 [facility] MODALITY 0 [facility] 1/> AREAS INC INC IONTOPHOR ESIS EA 15 MIN APPL 99492 G[facility] MAHER MODALITY 0 [facility] 1/> AREAS INC INC ELEC STIMJ UNATTENDE D APPLICATI 51112 [facility] MA[facility] ON 0 [facility] MODALITY INC INC 1/> AREAS HOT/COLD PACKS APPL 45439 G[facility]AR MAHER MODALITY 0 [facility] 1/> AREAS INC INC ELEC STIMJ UNATTENDE D THERAPEUT 88169 G[facility] MAHER IC PX 1/> 0 [facility] AREAS INC INC EACH 15 MIN EXERCISES PHYSICAL 09385 [facility] MA[facility] THERAPY 0 [facility] EVALUATIO INC INC N APPL 75016 GUNNAR MAHER MODALITY 0 [facility] 1/> AREAS INC INC IONTOPHOR ESIS EA 15 MIN APPLICATI 86767 [facility] MAHER ON 0 [facility] MODALITY INC INC 1/> AREAS HOT/COLD PACKS RADEX 09832 [facility] TEENA, RIBS UNI 0 MEDICAL JASMIN W/POSTERO IMAGING ANT CH ASSOCIATE MINIMUM 3 S VIEWS RADEX 73059 [facility] T[facility], SHOULDER 0 MEDICAL JASMIN COMPLETE IMAGING MINIMUM 2 ASSOCIATE VIEWS S ADMN SET A7003 YOUR YOUR SM VOL 9 [facility] PNEUMAT NEBULIZR DISPBL ECG 51355 Michelle DEWEY ROUTINE 9 DENNISE Hester ECG PSC W/LEAST 12 LDS W/I&R URINLS 85218 Michelle DEWEY DIP 9 DENNISE Hester STICK/TAB PSC LET REAGNT NON-AUTO MICRSCPY URINLS 36973 Michelle DEWEY DIP 9 DENNISE Hester STICK/TAB PSC LET REAGNT NON-AUTO MICRSCPY ADMN SET A7003 YOUR YOUR SM VOL 9 PHARMACY PHARMACY NONFILTR [facility] PNEUMAT NEBULIZR DISPBL COMPUTER- 99957 GUNNAR MAHER AIDED 9 [facility] DETECTION [place] [address] [place] VIOLA MEYERVAGI 9 MEDICAL PAULETTE P NAL IMAGING ASSOCIATE S [place] PELVIC 55183 GUNNAR MAHER 9 [facility] NONOBSTET INC INC CESAR REAL-TIME IMAGE COMPLETE SCREENING [address]0916 [place] BETSY, 9 MEDICAL PAULETTE P MAMMOGRAP IMAGING HY ASSOCIATE BILATERAL S BLOOD 56545 Michelle DEHER, OCCULT 9 DENNISE SAENZ PEROXIDAS PSC E ACTV QUAL FECES 1 DETER RADEX 57296 [place] TEENA, WRIST 9 MEDICAL JASMIN COMPLETE IMAGING MINIMUM 3 ASSOCIATE VIEWS S URINLS 70975 Michelle DEWEY DIP 9 DENNISE Hester STICK/TAB PSC LET REAGNT NON-AUTO MICRSCPY URINE 98141 [facility] 9 [facility] TEST INC INC VISUAL COLOR CMPRSN METHS URNLS DIP 61428 [facility] MAHER 9 [facility] STICK/TAB INC INC LET REAGENT AUTO MICROSCOP Y RADEX 57945 [place] BETSY, HAND 9 MEDICAL PAULETTE P MINIMUM 3 IMAGING VIEWS ASSOCIATE S ADMN SET A7003 YOUR YOUR SM VOL 9 PHARMACY PHARMACY NONFILTR [facility] PNEUMAT NEBULIZR DISPBL URINLS 19596 Michelle DEWEY DIP 9 DENNISE Hester STICK/TAB PSC LET REAGNT NON-AUTO MICRSCPY ADMN SET A7003 YOUR YOUR SM VOL 9 PHARMACY PHARMACY NONFILTR [facility] [facility] PNEUMAT NEBULIZR DISPBL ADMN SET A7003 YOUR YOUR SM VOL 9 [facility] P[facility] NEBULIZR DISPBL ADMN SET A7003 YOUR YOUR SM VOL 9 [facility] NEBULIZR DISPBL ADMN SET A7003 YOUR YOUR SM VOL 8 PHARMACY PHARMACY [facility] [place] [address] GUNNAR MAHER TRANSVAGI 8 [facility] NAL INC INC US PELVIC 27186 GUNNAR MAHER 8 [facility] NONOBSTET INC INC CESAR REAL-TIME IMAGE COMPLETE OPHTH 81817 JOCELYN BANKS, [facility] 8 SAMMIE A SAMMIE A XM&EVAL COMPRE NEW PT 1/> VST ADMN SET A7003 YOUR YOUR SM VOL 8 PHARMACY PHARMACY [facility] PNEUMAT NEBULIZR DISPBL CULTURE 32681 GUNNAR MAHER BACTERIAL 8 [facility] INC INC QUANTTATI VE COLONY COUNT URINE URNLS DIP 13375 [facility] MAHER 8 [facility] STICK/TAB INC INC LET REAGENT AUTO MICROSCOP Y SUSCEPTIB 86829 GUNNAR MAHER LTY STDY 8 [facility] ANTIMICRB INC INC IAL MICRO/AGA R DILUTJ ADMN SET A7003 YOUR YOUR SM VOL 8 PHARMACY PHARMACY [facility] PNEUMAT NEBULIZR DISPBL CULTURE 26073 [facility] BACTERIAL 8 [employer] QUANTTATI VE COLONY COUNT URINE URINLS 38024 A YENIFER ASH 8 DENNISE SAENZ STICK/TAB PSC LET REAGNT NON-AUTO MICRSCPY CULTURE 26620 GUNNAR MAHER BACTERIAL 8 [facility] INC INC QUANTTATI VE COLONY COUNT URINE URINE 73419 GUNNAR MAHER 8 [facility] TEST INC INC VISUAL COLOR CMPRSN METHS URNLS DIP 29323 GUNNAR MAHER 8 [facility] STICK/TAB INC INC LET REAGENT AUTO MICROSCOP Y ADMN SET A7003 YOUR YOUR SM VOL 8 PHARMACY PHARMACY [facility] PNEUMAT NEBULIZR DISPBL Encounters Encounter Start End Date Code Location Performer Type Date OFFICE 56057 [facility] YMJEANNE OUTPATIEN 7 7 PHYSICIAN T VISIT S GROUP 15 MINUTES EMERGENCY 51780 [facility] DEPT 6 6 PHYSICIAN VISIT S, [facility] HIGH SEVERITY& [facility]AT [facility] G[facility]AR - 6 6 [facility] OUTPATIEN INC T OFFICE 71410 GUNNAR OUTPATIEN 6 6 [facility] 15 MINUTES EMERGENCY 96522 LG HERNANDEZ 6 6 PHYSICIAN [facility] DEPARTMEN S, [facility] T VISIT MODERATE SEVERITY OFFICE 53094 GUNNAR HERNANDEZ OUTPATIEN 6 6 [facility] T VISIT HOSPITAL 15 MINUTES OFFICE 11539 [facility] AGUILLON OUTPATIEN 6 6 PHYSICIAN STONE T VISIT S GROUP JAY JAY EUGENIE 25 MINUTES EMERGENCY 17473 [facility] 6 PHYSICIAN DORON VISIT S, [facility] HIGH SEVERITY& [facility] 80660 GUNNAR MATHUR OUTPATIEN 6 6 [facility] 15 MINUTES OFFICE 88026 GUNNAR DI OUTPATIEN 6 6 [facility] VISIT HOSPITAL 15 MINUTES OFFICE 60998 [facility] SCHULSTAD OUTPATIEN 6 6 PHYSICIAN CAM T VISIT S GROUP 10 MINUTES [facility] - [facility] 6 [facility] T OFFICE 19048 [facility] JANAK OUTPATIEN 6 6 PHYSICIAN MAT T VISIT S GROUP 40 MINUTES [facility]OSP[facility] - 6 6 [facility] OUT[facility]IEN INC T EMERGENCY 73913 [facility] 6 6 [facility] DEPARTMEN INC T VISIT MODERATE SEVERITY [facility] - 6 6 [facility] OUT[facility]IEN INC T EMERGENCY 92029 LG REYES DEPT 6 6 PHYSICIAN VISIT S, [facility] HIGH SEVERITY& THREAT [facility] HOSPITAL GUNNAR - 6 6 [facility] OUTPATIEN [facility] T OFFICE 50788 [facility] MARY OUTPATIEN 6 6 PHYSICIAN TERESA T VISIT S GROUP 15 MINUT[facility] HOSPITAL G[facility]AR - 6 6 [facility] OUTPATIEN [facility] T EMERGENCY 01434 GUNNAR 6 [address] [facility] T VISIT HIGH/URGE NT SEVERITY EMERGENCY 86437 LG ABDUL DEPT 6 6 PHYSICIAN U ANNALEE VISIT S, [facility] HIGH SEVERITY& THREAT [facility] EMERGENCY 52843 LG HERNANDEZ 5 5 PHYSICIAN [facility] S, [facility] T VISIT LOW/MODER SEVERITY EMERGENCY 85280 GUNNAR 5 [address] [facility] T VISIT LIMITED/M INOR [facility] GUNNAR - 5 5 [facility] OUTPATIEN [facility] HOSPITAL G[facility] 5 5 [facility]PATIEN [facility] HOSPITAL G[facility] 5 5 [facility]PATIEN [facility] OFFICE 90747 [facility] RENEN 5 5 PHYSICIAN T VISIT S GROUP 10 MINUTES HOSPITAL [facility] - 4 4 [facility] OUTPATIEN [facility] OFFICE 09406 [facility] MARY OUTPATIEN 4 4 PHYSICIAN TERESA T VISIT S GROUP 10 MINUTES HOSPITAL G[facility] - 4 4 [facility] OUTPATIEN [facility] T EMERGENCY 19837 GUNNAR HERNANDEZ 4 4 [facility] T VISIT P LOW/MODER SEVERITY OFFICE 89056 [facility] MARY OUTPATIEN 4 4 PHYSICIAN TERESA T VISIT S GROUP 25 MINUTES OFFICE 49878 [facility] MARY OUTPATIEN 4 4 PHYSICIAN TERESA T VISIT S GROUP 10 MINUTES HOSPITAL G[facility] - 4 4 [facility] OUTPATIEN [facility] HOSPITAL GUNNAR [facility] 4 4 [facility] OUTPATIEN [facility] HOSPITAL G[facility] - 3 3 [facility]PATIEN [facility] HOSPITAL GUN[facility]AR - 3 3 [facility] OUTPATIEN [facility] OFFICE 76389 FIELD AMB FIELD AMB OUTPATIEN 3 3 T VISIT 15 MINUTES OFFICE 31318 FIELD AMB FIELD AMB OUTPATIEN 3 3 T VISIT 15 MINUTES OFFICE 55870 A C KILPELA OUTPATIEN 3 3 DENNISE SOTO T VISIT PSC 15 MINUTES EMERGENCY 27930 [facility] 3 3 [facility] T VISIT LOW/MODER SEVERITY EMERGENCY 09040 MARY HERNANDEZ 3 3 [facility] T VISIT HIGH/URGE NT SEVERITY HOSPITAL G[facility] - 3 3 [facility] OUTPATIEN [facility] OFFICE 07965 J CARLOS PRITI J CARLOS [facility] OUTPATIEN 3 3 T NEW 30 MINUTES EMERGENCY 09355 GUN[facility]AR 2 [address] [facility] T VISIT LOW/MODER SEVERITY HOSPITAL G[facility]AR - 2 2 [facility] OUTPATIEN [facility] EMERGENCY 71805 KEV ANGULO 2 2 III [place] III [facility] T VISIT HIGH/URGE NT SEVERITY OFFICE 64245 KILPELA KILPELA OUTPATIEN 2 2 JEA JEA T VISIT 15 MINUTES OFFICE 18826 KILPELA KILPELA OUTPATIEN 2 2 JEA JEA T VISIT 15 MINUTES OFFICE 70891 KILPELA KILPELA OUTPATIEN 2 2 JEA JEA T VISIT 15 MINUTES OFFICE 08540 [facility] OUTPATIEN 2 2 CESAR CESAR T VISIT 15 MINUTES OFFICE 36454 [facility] OUTPATIEN 2 2 CESAR CESAR T VISIT 15 MINUTES OFFICE 99828 EDOUARD NUNN OUTPATIEN 2 2 OSWALDO OSWALDO T NEW 30 MINUTES HOSP[facility] - 2 2 [facility] OUTPATI[facility] INC T [facility] - 2 2 [facility] OUT[facility] INC T EMERGENCY 53628 [facility] 2 2 [facility] DEPARTMEN INC T VISIT LOW/MODER SEVERITY EMERGENCY 82535 LACHELLE HERNANDEZ 2 2 EMERGENCY [facility] DEPARTMEN SERVICES T VISIT MODERATE SEVERITY OFFICE 62514 COLLIN COLLIN OUTPATIEN 2 2 CESAR CESAR T VISIT 25 MINUTES HOSPITAL [facility] - 2 2 [facility] OUTPATIEN INC T OFFICE 55267 ARGENIS CHISHOLM NEDRA OUTPATIEN 2 2 T VISIT 15 MINUTES HOSPITAL [facility] - 2 2 [facility] OUTPATIEN INC T INITIAL 18210 SPIREK SPIREK PREVENTIV 1 1 ANI ANI E MEDICINE NEW PATIENT 40-64YRS OFFICE 76290 COLLIN COLLIN OUTPATIEN 1 1 CESAR CESAR T VISIT 15 MINUTES EMERGENCY 48389 GUN[facility] 1 1 [facility] VIS[facility] LIMITED/M INOR PROB EMERGENCY 39913 LACHELLE HERNANDEZ 1 1 EMERGENCY [facility] DEPARTMEN SERVICES T VISIT MODERATE SEVERITY HOSPITAL [facility] - 1 1 [facility] OUTPATIEN INC T OFFICE 54514 A C COLLIN OUTPATIEN 1 1 DENNISE OLMOS CESAR T VISIT PSC 25 MINUTES OFFICE 00878 A Mir Martinez OUTPATIKODI 1 1 DENNISE OLMOS T VISIT PSC 15 MINUTES OFFICE 71660 A C OUTCONTRERAS 1 1 DENNISE OLMOS T VISIT PSC 15 MINUTES PERIODIC 39152 A Mir Martinez PREVENTIV 1 1 DENNISE OLMOS E MED EST PSC PATIENT 40-64YRS OFFICE 32732 A Mir Martinez OUTPATIEN 1 1 DENNISE OLMOS T VISIT 5 PSC MINUTES EMERGENCY 46949 GUNNAR 1 [address] [facility] T VISIT LOW/MODER SEVERITY EMERGENCY 27541 LACHELLE ANGULO 1 1 EMERGENCY III [facility] SERVICES T VISIT HIGH/URGE NT SEVERITY HOSPITAL GUNNAR - [address] [facility] T OFFICE 42136 A Mir Martinez OUTPATIEN 0 0 DENNISE OLMOS T VISIT PSC 15 MINUTES HOSPITAL [facility] - 0 0 [facility] OFFICE 08034 A Mir Martinez OUTPATIEN 0 0 DENNISE OLMOS T VISIT PSC 25 MINUTES EMERGENCY 39428 LACHELLE HERNANDEZ 0 0 EMERGENCY [facility] SERVICES T VISIT HIGH/URGE NT SEVERITY EMERGENCY 64912 GUNNAR 0 [address] [facility] T VISIT MODERATE SEVERITY HOSPITAL G[facility] - 0 0 [facility] GUNNAR - [address] [facility] T OFFICE 89076 RULA HORTA CONSULTAT 0 0 NAOMI NAOMI ION NEW/ESTAB PATIENT 60 MIN [facility] - [address] [facility] T OFFICE 78752 A Mir Martinez OUTPATIEN 0 0 DENNISE OLMOS T VISIT PSC 25 MINUTES OFFICE 79102 A Michelle BAIG OUTPATIEN 0 0 DENNISE Hester T VISIT PSC 15 MINUTES HOSPITAL G[facility]NAR - [address] [facility] T OFFICE 77801 A Michelle BAIG OUTPATIEN 0 0 DENNISE Hester T VISIT PSC 25 MINUTES HOSPITAL [facility] - 0 0 [facility] OUTPATIEN INC T OFFICE 25432 Michelle DEWEY OUTPATIEN 0 0 DENNISE Hester T VISIT PSC 25 MINUTES OFFICE 69271 Michelle DEWEY OUTPATIEN 0 0 DENNISE Hester T VISIT PSC 15 MINUTES HOSPITAL [facility] - 0 0 [facility] OUTPATIEN INC T HOSPITAL G[facility] 0 0 [facility] OUTPATIEN INC T HOSPITAL G[facility] - 0 0 [facility] OUTPATIEN INC T OFFICE 63762 Michelle DEWEY OUTPATIEN 0 0 DENNISE Hester T VISIT PSC 15 MINUTES EMERGENCY 83723 LACHELLE WALL, [address] [facility] HIGH/URGE ASSOCIATE NT S SEVERITY [facility]OSP[facility] - 0 0 [facility] OUTPATIEN INC T OFFICE 21633 Michelle DEWEY OUTPATIKODI 9 9 DENNISE Hester T VISIT PSC 25 MINUTES OFFICE 93654 Michelle DEWEY OUTPATIKODI 9 9 DENNISE Hester T VISIT PSC 15 MINUTES HOSPITAL GUNNAR - 9 9 [facility] OUTPATIEN INC T OFFICE 83410 Michelle DEWEY OUTPATIKODI 9 9 DENNISE Hester T VISIT PSC 25 MINUTES OFFICE 49637 Michelle DEWEY OUTPATIEN 9 9 DENNISE Hester T VISIT PSC 15 MINUTES HOSPITAL [facility] - 9 9 [facility] OUTPATI[facility] INC T EMERGENCY 42269 [facility] 9 9 [facility] DEPARTMEN INC T VISIT LOW/MODER SEVERITY EMERGENCY 30016 LACHELLE MELENDEZ 9 9 [facility] V[facility] MODERATE ASSOCIATE SEVERITY [facility] GUNNAR - 9 9 [facility] OUTPATIEN INC T OFFICE 43211 Michelle DEWEY OUTPATIKODI 9 9 DENNISE Hester T VISIT PSC 25 MINUTES OFFICE 05519 ANGELIA PARKER 8 8 DENNISE SAENZ T VISIT PSC 15 MINUTES HOSPITAL UGNNAR - 8 8 [facility] OUTPATIEN INC T EMERGENCY 57364 GUNNAR 8 8 [facility] DEPARTMEN [facility] T VISIT LIMITED/M INOR PROB EMERGENCY 79306 RASHAD BEST, 8 8 [facility] T VISIT ON LOW/MODER SEVERITY [facility]OSPITAL G[facility] - 8 8 [facility] OUTPATIEN INC T OFFICE 25405 Michelle DEWEY OUTPATIKODI 8 8 DENNISE Hester T VISIT PSC 15 MINUTES HOSPITAL G[facility]AR - 8 8 [facility] OUTPATIEN INC T EMERGENCY 81031 GUNNAR 8 8 [facility] DEPARTMEN INC T VISIT LOW/MODER SEVERITY OFFICE 68922 Michelle DEWEY 8 8 DENNISE Eastman VISIT PSC 15 MINUTES OFFICE 81776 ANGELIA PARKER 8 8 DENNISE SAENZ T VISIT PSC 15 MINUTES HOSPITAL G[facility] - 8 8 [facility] OUTPATIEN INC T EMERGENCY 67090 GUNNAR 8 8 [facility] DEPARTMEN INC T VISIT MODERATE SEVERITY OFFICE 05164 ANGELIA PARKER 8 8 DENNISE SAENZ T VISIT PSC 25 MINUTES
--- OUTSIDE RECORDS SUMMARY | 2017-03-30 19:13 | External Medical Summary Rpt ---
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 THYROID 0 AMERIC AMERIC STIMULATI HOLDING HOLDING NG HORMONE TSH GONADOTRO 10854 LAB SH[facility]LEN[facility] LAB SHIRLENE PIN 0 AMERIC AMERIC LUTEINIZI [place] [address] LAB [facility] LAB SHIRLEN[facility] ESTRADIOL 0 [place] [address] LAB SH[facility]LEN[facility] LAB SHIRLENE THYROXINE 0 AMERIC AMERIC TOTAL HOLDING HOLDING GONADOTRO 07400 LAB SHIRLEN[facility] LAB SHIRLENE PIN 0 AMERIC AMERIC FOLLICLE HOLDING HOLDING STIMULATI NG HORMONE THYROID 89501 LAB [facility] LAB SHIRLEN[facility] HORM 0 AMERIC AMERIC UPTK/THYR HOLDING HOLDING [place] [address] LAB SHIRLEN[facility] LAB SHIRLENE PROLACTIN 0 AMERIC AMERIC HOLDING HOLDING US PELVIC 38003 [place] BETSY, 0 MEDICAL PAULETTE P NONOBSTET IMAGING CESAR ASSOCIATE [place] [address] [facility] MEYER TRANSVAGI 0 MEDICAL PAULETTE P NAL IMAGING ASSOCIATE S ADMN SET A7003 YOUR YOUR SM VOL 0 PHARMACY PHARMACY NONFILRED [facility] PNEUMAT NEBULIZR DISPBL GONADOTRO 79195 GUNNAR MAHER PIN 0 [facility] CHORIONIC INC INC QUALITATI VE APPL 72254 GUNNAR MAHER MODALITY 0 [facility] 1/> AREAS INC INC ELEC STIMJ UNATTENDE D APPL 62173 GUNNAR MAHER MODALITY 0 [facility] 1/> AREAS INC INC IONTOPHOR ESIS EA 15 MIN THERAPEUT 06996 GUNNAR MAHER IC PX 1/> 0 [facility] AREAS INC INC EACH 15 MIN EXERCISES APPLICATI 17882 GUNNAR MAHER ON 0 [facility] MODALITY INC INC 1/> AREAS HOT/COLD PACKS APPL 27974 GUNNAR MAHER MODALITY 0 [facility] 1/> AREAS INC INC IONTOPHOR ESIS EA 15 MIN APPL 06246 GUNNAR MAHER MODALITY 0 [facility] 1/> AREAS INC INC ELEC STIMJ UNATTENDE D APPLICATI 86445 GUNNAR MAHER ON 0 [facility] MODALITY INC INC 1/> AREAS HOT/COLD PACKS APPL 08108 GUNNAR MAHER MODALITY 0 [facility] 1/> AREAS INC INC ELEC STIMJ UNATTENDE D THERAPEUT 25796 GUNNAR MAHER IC PX 1/> 0 [facility] AREAS INC INC EACH 15 MIN EXERCISES PHYSICAL 54564 GUNNAR MAHER THERAPY 0 [facility] EVALUATIO INC INC N APPL 68558 GUNNAR MAHER MODALITY 0 [facility] 1/> AREAS INC INC IONTOPHOR ESIS EA 15 MIN APPLICATI 23686 GUNNAR MAHER ON 0 [facility] MODALITY INC INC 1/> AREAS HOT/COLD PACKS RADEX 87248 [facility], RIBS UNI 0 MEDICAL JASMIN W/POSTERO IMAGING ANT CH ASSOCIATE MINIMUM 3 S VIEWS RADEX 27580 [facility] T[facility], SHOULDER 0 MEDICAL JASMIN COMPLETE IMAGING MINIMUM 2 ASSOCIATE VIEWS S ADMN SET A7003 YOUR YOUR SM VOL 9 PHARMACY PHARMACY NONFILRED [facility] PNEUMAT NEBULIZR DISPBL ECG 10520 Michelle DEWEY ROUTINE 9 DENNISE Hester ECG PSC W/LEAST 12 LDS W/I&R URINLS 83397 Michelle DEWEY DIP 9 DENNISE Hester STICK/TAB PSC LET REAGNT NON-AUTO MICRSCPY URINLS 39846 Michelle DEWEY DIP 9 DENNISE Hester STICK/TAB PSC LET REAGNT NON-AUTO MICRSCPY ADMN SET A7003 YOUR YOUR SM VOL 9 PHARMACY PHARMACY NONFILTR [facility] PNEUMAT NEBULIZR DISPBL COMPUTER- 62740 GUNNAR MAHER AIDED 9 [facility] [place] [address] [place] VIOLA MEYERVAGI 9 MEDICAL PAULETTE P NAL IMAGING ASSOCIATE S US PELVIC 22854 GUNNAR MAHER 9 [facility] NONOBSTET INC INC CESAR REAL-TIME IMAGE COMPLETE SCREENING 78285 [place], 9 MEDICAL PAULETTE P MAMMOGRAP IMAGING HY ASSOCIATE BILATERAL S BLOOD 83170 Michelle DEHER, OCCULT 9 DENNISE SAENZ PEROXIDAS PSC E ACTV QUAL FECES 1 DETER RADEX 40755 [place] TEENA, WRIST 9 MEDICAL JASMIN COMPLETE IMAGING MINIMUM 3 ASSOCIATE VIEWS S URINLS 12123 Michelle DEWEY DIP 9 DENNISE Hester STICK/TAB PSC LET REAGNT NON-AUTO MICRSCPY URINE 81792 [facility] MAHRE 9 [facility] TEST INC INC VISUAL COLOR CMPRSN METHS URNLS DIP 89069 GUNNAR MAHER 9 [facility] STICK/TAB INC INC LET REAGENT AUTO MICROSCOP Y RADEX 04703 [place], HAND 9 MEDICAL PAULETTE P MINIMUM 3 IMAGING VIEWS ASSOCIATE S ADMN SET A7003 YOUR YOUR SM VOL 9 PHARMACY PHARMACY NONFILTR [facility] PNEUMAT NEBULIZR DISPBL URINLS 76424 Michelle DEWEY DIP 9 DENNISE Hester STICK/TAB PSC LET REAGNT NON-AUTO MICRSCPY ADMN SET A7003 YOUR YOUR SM VOL 9 PHARMACY PHARMACY NONFILTR [employer] [facility] PNEUMAT NEBULIZR DISPBL ADMN SET A7003 YOUR YOUR SM VOL 9 PHARMACY PHARM[facility]Y [facility] PNEUMAT NEBULIZR DISPBL ADMN SET A7003 YOUR YOUR SM VOL 9 PHARMACY [facility] PNEUMAT NEBULIZR DISPBL ADMN SET A7003 YOUR YOUR SM VOL 8 PHARMACY PHARMACY [facility] [address] GUNNAR MAHER TRANSVAGI 8 [facility] NAL INC INC [place] PELVIC 43598 GUNNAR MAHER 8 [facility] NONOBSTET INC INC CESAR REAL-TIME IMAGE COMPLETE OPHTH 91975 JOCELYN BANKS, [facility] 8 SAMMIE A SAMMIE A XM&EVAL COMPRE NEW PT 1/> VST ADMN SET A7003 YOUR YOUR SM VOL 8 PHARMACY PHARMACY [facility] PNEUMAT NEBULIZR DISPBL CULTURE 27639 GUNNAR MAHER BACTERIAL 8 [facility] INC INC QUANTTATI VE COLONY COUNT URINE URNLS DIP 87618 GUNNAR MAHER 8 [facility] STICK/TAB INC INC LET REAGENT AUTO MICROSCOP Y SUSCEPTIB 41836 GUNNAR MAHER LTY STDY 8 [facility] ANTIMICRB INC INC IAL MICRO/AGA R DILUTJ ADMN SET A7003 YOUR YOUR SM VOL 8 PHARMACY PHARMACY [facility] PNEUMAT NEBULIZR DISPBL CULTURE 69606 LAB SHIRLENE LAB SHIRLENE BACTERIAL 8 [employer] QUANTTATI VE COLONY COUNT URINE URINLS 70359 A YENIFER ASH 8 DENNISE SAENZ STICK/TAB PSC LET REAGNT NON-AUTO MICRSCPY CULTURE 77237 GUNNAR MAHER BACTERIAL 8 [facility] INC INC QUANTTATI VE COLONY COUNT URINE URINE 93359 GUNNAR MAHER 8 [facility] TEST INC INC VISUAL COLOR CMPRSN METHS URNLS DIP 11753 GUNNAR MAHER 8 [facility] STICK/TAB INC INC LET REAGENT AUTO MICROSCOP Y ADMN SET A7003 YOUR YOUR SM VOL 8 PHARMACY [facility]Y [facility] PNEUMAT NEBULIZR DISPBL Encounters Encounter Start End Date Code Location Performer Type Date OFFICE 18794 [facility] YMJEANNE OUTPATIEN 7 7 PHYSICIAN T VISIT S GROUP 15 MINUTES EMERGENCY 65753 [facility] DEPT 6 6 PHYSICIAN VISIT S, [facility] HIGH SEVERITY& THREAT [facility]AR - [facility] 6 [facility] T OFFICE 31182 GUNNAR OUTPATIEN 6 6 [facility] 15 MINUTES EMERGENCY 79052 LG HERNANDEZ 6 6 PHYSICIAN [facility] DEPARTMEN S, [facility] T VISIT MODERATE SEVERITY OFFICE 54638 GUNNAR HERNANDEZ OUTPATIEN 6 6 [facility] T VISIT HOSPITAL 15 MINUTES OFFICE 30724 [facility] AGUILLON OUTPATIEN 6 6 PHYSICIAN STONE T VISIT S GROUP JAY JAY EUGENIE 25 MINUTES EMERGENCY 26565 [facility] 6 6 PHYSICIAN DORON VISIT S[facility] HIGH [facility]VERITY& [facility] 77193 G[facility] MATHUR [facility] 6 6 [facility] 15 MINUTES OFFICE 02563 GUNNAR DI OUTPATIEN 6 6 [facility]OSP[facility] 15 MINUTES OFFICE 68504 [facility] SCHULSTAD OUTPATIEN 6 6 PHYSICIAN CAM T VISIT S GROUP 10 MINUTES HOSPITAL GUNNAR - 6 6 [facility] OUT[facility] INC T OFFICE 41786 [facility] JANAK OUTPATIEN 6 6 PHYSICIAN MAT T VISIT S GROUP 40 MINUTES HOSPITAL GUNNAR - 6 6 [facility] OUTPATIEN INC T EMERGENCY 30264 GUNNAR 6 6 [facility] DEPARTMEN INC T VISIT MODERATE SEVERITY HOSPITAL GUNNAR - 6 6 [facility] OUTPATIEN INC T EMERGENCY 68274 LG REYES DEPT 6 6 PHYSICIAN VISIT S, [facility] HIGH SEVERITY& THREAT [facility] HOSPITAL GUNNAR - 6 6 [facility] T OFFICE 91536 [facility] MARY OUTPATIEN 6 6 PHYSICIAN TERESA T VISIT S GROUP 15 MINUTES HOSPITAL GUNNAR - 6 6 [facility] T EMERGENCY 82144 GUNNAR 6 6 [facility] T VISIT HIGH/URGE NT SEVERITY EMERGENCY 59414 LG ABDUL DEPT 6 6 PHYSICIAN U ANNALEE VISIT S, [facility] HIGH SEVERITY& THREAT [facility] EMERGENCY 48442 LG HERNANDEZ 5 5 PHYSICIAN [facility] S, [facility] T VISIT LOW/MODER SEVERITY EMERGENCY 85265 GUNNAR 5 5 [facility] T VISIT LIMITED/M INOR [facility] HOSPITAL GUNNAR - 5 5 [facility] OUTPATIEN [facility] HOSPITAL GUNNAR [facility] 5 5 [facility] OUTPATIEN [facility] HOSPITAL GUNNAR [facility] 5 5 [facility] OUTPATIEN [facility] OFFICE 62260 [facility] RENEN 5 5 PHYSICIAN T VISIT S GROUP 10 MINUTES HOSPITAL GUNNAR - 4 4 [facility] OUTPATIEN [facility] OFFICE 70906 [facility] MARY OUTPATIEN 4 4 PHYSICIAN TERESA T VISIT S GROUP 10 MINUTES HOSPITAL GUNNAR - 4 4 [facility] T EMERGENCY 57160 GUNNAR HERNANDEZ 4 4 [facility] T VISIT P LOW/MODER SEVERITY OFFICE 59053 [facility] MARY OUTPATIEN 4 4 PHYSICIAN TERESA T VISIT S GROUP 25 MINUTES OFFICE 46755 [facility] MARY OUTPATIEN 4 4 PHYSICIAN TERESA T VISIT S GROUP 10 MINUTES HOSPITAL GUNNAR - 4 4 [facility]PATIEN [facility] HOSPITAL GUNNAR - 4 4 [facility] OUTPATIEN [facility] HOSPITAL GUNNAR - 3 3 [facility] OUTPATIEN [facility] HOSPITAL GUNNAR - 3 3 [facility] OUTPATIEN [facility] OFFICE 82771 FIELD AMB FIELD AMB OUTPATIEN 3 3 T VISIT 15 MINUTES OFFICE 72097 FIELD AMB FIELD AMB OUTPATIEN 3 3 T VISIT 15 MINUTES OFFICE 38829 A C KILPELA OUTPATIEN 3 3 DENNISE SOTO T VISIT PSC 15 MINUTES EMERGENCY 75907 [facility] 3 3 [facility] T VISIT LOW/MODER SEVERITY EMERGENCY 64891 MARY HERNANDEZ 3 3 [facility] T VISIT HIGH/URGE NT SEVERITY HOSPITAL GUNNAR - 3 3 [facility] OUTPATIEN [facility] OFFICE 74392 J CARLOS PRITI J CAR[facility] OUTPATIEN 3 3 T NEW 30 MINUTES EMERGENCY 70323 GUNNAR 2 2 [facility] T VISIT LOW/MODER SEVERITY HOSPITAL GUNNAR - 2 2 [facility] OUTPATIEN [facility] EMERGENCY 10108 KEV ANGULO 2 2 III [place] [facility] T VISIT HIGH/URGE NT SEVERITY OFFICE 72134 KILPELA KILPELA OUTPATIEN 2 2 JEA JEA T VISIT 15 MINUTES OFFICE 93695 KILPELA KILPELA OUTPATIEN 2 2 JEA JEA T VISIT 15 MINUTES OFFICE 88239 KILPELA KILPELA OUTPATIEN 2 2 JEA JEA T VISIT 15 MINUTES OFFICE 50201 COLLIN COLLIN OUTPATIEN 2 2 [facility]ES[facility]ESAR T VISIT 15 MINUTES OFFICE 99319 COLLIN COLLIN OUTPATIEN 2 2 [facility]ESAR T VISIT 15 MINUTES OFFICE 34857 EDOUARD NUNN OUTPATIEN 2 2 OSWALDO OSWALDO T NEW 30 MINUTES HOSPITAL GUNNAR - 2 2 [facility] OUTPAT[facility]EN INC T HOSPITAL GUNNAR - 2 2 [facility] OUTPATIEN INC T EMERGENCY 57259 GUNNAR 2 2 [facility] DEPARTMEN INC T VISIT LOW/MODER SEVERITY EMERGENCY 24944 LACHELLE HERNANDEZ 2 2 [facility]ER[facility] DEPARTMEN SERVICES T VISIT MODERATE SEVERITY OFFICE 18586 COLLIN COLLIN OUTPATIEN 2 2 [facility] CESAR T VISIT 25 MINUTES HOSPITAL GUNNAR - 2 2 [facility] OUTPATIEN INC T OFFICE 23501 ARGENIS CHISHOLM NEDRA OUTPATIEN 2 2 T VISIT 15 MINUTES HOSPITAL GUNNAR - 2 2 [facility] OUTPATIEN INC T INITIAL 94110 SPIREK SPIREK PREVENTIV 1 1 ANI ANI E MEDICINE NEW PATIENT 40-64YRS OFFICE 75814 COLLIN COLLIN OUTPATIEN 1 1 CESAR CESAR T VISIT 15 MINUTES EMERGENCY 84961 GUNNAR 1 1 [facility] V[facility] LIMITED/M INOR PROB EMERGENCY 82657 LACHELLE HERNANDEZ 1 1 EMERGENCY [facility] DEPARTMEN SERVICES T VISIT MODERATE SEVERITY HOSPITAL GUNNAR - 1 1 [facility] OUTPATIEN INC T OFFICE 32488 A C COLLIN OUTPATIEN 1 1 DENNISE OLMOS CESAR T VISIT PSC 25 MINUTES OFFICE 43733 A Mir Martinez OUTPATIKODI 1 1 DENNISE OLMOS T VISIT PSC 15 MINUTES OFFICE 91718 A C OUTCONTRERAS 1 1 DENNISE OLMOS T VISIT PSC 15 MINUTES PERIODIC 17754 A Mir Martinez PREVENTIV 1 1 DENNISE OLMOS E MED EST PSC PATIENT 40-64YRS OFFICE 35737 A Mir Martinez OUTPATIEN 1 1 DENNISE OLMOS T VISIT 5 PSC MINUTES EMERGENCY 43491 GUNNAR 1 1 [facility] T VISIT LOW/MODER SEVERITY EMERGENCY 87318 LACHELLE ANGULO 1 1 EMERGENCY III [facility] SERVICES T VISIT HIGH/URGE NT SEVERITY HOSPITAL GUNNAR - 1 1 [facility] T OFFICE 87174 A Mir Martinez OUTPATIEN 0 0 DENNISE OLMOS T VISIT PSC 15 MINUTES HOSPITAL GUNNAR - 0 0 [facility] OFFICE 86215 A Mir Martinez OUTPATIEN 0 0 DENNISE OLMOS T VISIT PSC 25 MINUTES EMERGENCY 09832 LACHELLE HERNANDEZ 0 0 EMERGENCY [facility] SERVICES T VISIT HIGH/URGE NT SEVERITY EMERGENCY 99376 GUNNAR 0 0 [facility] T VISIT MODERATE SEVERITY HOSPITAL GUNNAR - 0 0 [facility] GUNNAR - 0 0 [facility] T OFFICE 18860 RULA HORTA CONSULTAT 0 0 NAOMI NAOMI ION NEW/ESTAB PATIENT 60 MIN HOSPITAL GUNNAR - 0 0 [facility] T OFFICE 96689 A Mir Martinez OUTPATIEN 0 0 DENNISE OLMOS T VISIT PSC 25 MINUTES OFFICE 73596 A Michelle BAIG OUTPATIEN 0 0 DENNISE Hester T VISIT PSC 15 MINUTES HOSPITAL GUNNAR - 0 0 [facility] T OFFICE 96024 A Michelle BAIG OUTPATIEN 0 0 DENNISE Hester T VISIT PSC 25 MINUTES HOSPITAL GUNNAR - 0 0 [facility] OUTPATIEN INC T OFFICE 56288 Michelle DEWEY OUTPATIEN 0 0 DENNISE Hester T VISIT PSC 25 MINUTES OFFICE 35903 Michelle DEWEY OUTPATIEN 0 0 DENNISE Hester T VISIT PSC 15 MINUTES HOSPITAL GUNNAR - 0 0 [facility] OUTPATIEN INC T HOSPITAL GUNNAR - 0 0 [facility] OUTPATIEN INC T HOSPITAL GUNNAR - 0 0 [facility] OUTPATIEN INC T OFFICE 55685 Michelle DEWEY OUTPATIEN 0 0 DENNISE Hester T VISIT PSC 15 MINUTES EMERGENCY 12172 LACHELLE WALL, 0 0 [facility] VISIT HIGH/URGE ASSOCIATE NT S SEVERITY HOSPITAL GUNNAR - 0 0 [facility] OUTPATIEN INC T OFFICE 68650 Michelle DEWEY OUTPATIKODI 9 9 DENNISE Hester T VISIT PSC 25 MINUTES OFFICE 45729 Michelle DEWEY OUTPATIKODI 9 9 DENNISE Hester T VISIT PSC 15 MINUTES HOSPITAL GUNNAR - 9 9 [facility] OUTPATIEN INC T OFFICE 66423 Michelle DEWEY OUTPATIKODI 9 9 DENNISE Hester T VISIT PSC 25 MINUTES OFFICE 58407 Michelle DEWEY OUTPATIEN 9 9 DENNISE Hester T VISIT PSC 15 MINUTES HOSPITAL GUNNAR - 9 9 [facility] OUTPAT[facility]EN INC T EMERGENCY 92859 GUNNAR 9 9 [facility] DEPARTMEN INC T VISIT LOW/MODER SEVERITY EMERGENCY 41437 LACHELLE MELENDEZ 9 9 [facility] T VISIT MODERATE ASSOCIATE SEVERITY [facility] GUNNAR - 9 9 [facility] OUTPATIEN INC T OFFICE 56308 Michelle DEWEY OUTPATIKODI 9 9 DENNISE Hester T VISIT PSC 25 MINUTES OFFICE 81184 ANGELIA PARKER 8 8 DENNISE SAENZ T VISIT PSC 15 MINUTES HOSPITAL GUNNAR - 8 8 [facility] OUTPATIEN INC T EMERGENCY 91702 GUNNAR 8 8 [facility] DEPARTMEN [facility] T VISIT LIMITED/M INOR PROB EMERGENCY 43419 RASHAD EBST, 8 8 [facility] T VISIT ON LOW/MODER SEVERITY HOSPITAL GUNNAR - 8 8 [facility] OUTPATIEN INC T OFFICE 00140 Michelle DEWEY OUTPATIKODI 8 8 DENNISE Hester T VISIT PSC 15 MINUTES HOSPITAL GUNNAR - 8 8 [facility] OUTPATIEN INC T EMERGENCY 00856 GUNNAR 8 8 [facility] DEPARTMEN INC T VISIT LOW/MODER SEVERITY OFFICE 84358 Michelle DEWEY 8 8 DENNISE Eastman VISIT PSC 15 MINUTES OFFICE 78336 ANGELIA PARKER 8 8 DENNISE SAENZ T VISIT PSC 15 MINUTES HOSPITAL GUNNAR - 8 8 [facility] OUTPATIEN INC T EMERGENCY 79088 GUNNAR 8 8 [facility] DEPARTMEN INC T VISIT MODERATE SEVERITY OFFICE 50926 ANGELIA PARKER 8 8 DENNISE SAENZ T VISIT PSC 25 MINUTES
--- OUTSIDE RECORDS SUMMARY | 2017-03-30 19:16 | External Medical Summary Rpt ---
Author Author ISABELLE Ceballos, [employer] Address Unknown Phone Unavailable
--- OUTSIDE RECORDS SUMMARY | 2017-03-30 19:16 | External Medical Summary Rpt ---
Demographics Preferred Language Tajik Marital Status Unknown Jainism Affiliation Unknown Race Unknown Ethnic Group Unknown Author Author , Organization [employer] Address Unknown Phone Unavailable Purpose Continuity of Care Document - through 2016 Immunization No patient found.
--- OUTSIDE RECORDS SUMMARY | 2017-03-30 19:16 | External Medical Summary Rpt ---
Demographics Preferred Language Botswanan Marital Status Unknown Pentecostal Affiliation Unknown Race Unknown Ethnic Group Unknown Author Author , Organization [employer] Address Unknown Phone Unavailable Purpose Continuity of Care Document - through 2016 Immunization No patient found.
[2017-03-30 19:29] LABS: BUN 14 mg/dL (7-18); GFR (ESTIMATED) 87 ML/MIN (59-)
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
[2017-03-30 19:51] VITALS: BP 111/68
--- NOTE | 2017-03-31 05:53 | RADIOLOGY REPORT PS360 ---
CT HEAD W/O CONTRAST HISTORY: Headache and dizziness with near syncope DIZZY AND LIGHT HEADED ORDERING PHYSICIAN: Paul Garcia MD PATIENT AGE: 56 years COMPARISON: None TECHNIQUE: Axial images obtained without contrast. Brain and bone windows reviewed. FINDINGS: No midline shift, mass effect, intracranial hemorrhage, hydrocephalus, or extra-axial fluid collection is evident. The calvarium has an unremarkable appearance. No mastoid effusion. Mild mucosal thickening left maxillary sinus. IMPRESSION: No acute intracranial pathology.
== END 2017-03-30 19:54 | disposition home or self-care (01) ==
LOC: ER 18:18
PROVIDERS: Emergency Medicine
DX: R51 Headache (principal); R42 Dizziness and giddiness; I10 Essential (primary) hypertension; F41.8 Other specified anxiety disorders
CPT/HCPCS: J2405

== ENCOUNTER 2017-08-06 11:44 | Emergency (ER) | payer MEDICAID ==
[~2017-08-06] VITALS: Ht 170.2 cm; Wt 117.5 kg
[~2017-08-06 11:44] MED LIST changes: +NAPROSYN 500MG500 MG PO
[2017-08-06 12:57] LABS: AEROMONAS NOT DETECTED (NOT DETECTE); ASTROVIRUS NOT DETECTED (NOT DETECTE); CYCLOSPORA CAYETANENSIS NOT DETECTED (NOT DETECTE); E COLI O157 NOT DETECTED (NOT DETECTE); ENTEROAGGREGATIVE E COLI NOT DETECTED (NOT DETECTE); ENTEROPATHOGENIC E COLI NOT DETECTED (NOT DETECTE); ENTEROTOXIGENIC E COLI NOT DETECTED (NOT DETECTE); NOROVIRUS NOT DETECTED (NOT DETECTE); SAPOVIRUS NOT DETECTED (NOT DETECTE); SHIGA-LIKE TOXIN PROD. E COLI NOT DETECTED (NOT DETECTE); SHIGELLA/ENTEROINVASIVE E COLI NOT DETECTED (NOT DETECTE); VIBRIO CHOLERAE NOT DETECTED (NOT DETECTE)
[2017-08-06 13:06] LABS: LYMPH % 31.9 % (10-50.0)
[2017-08-06 13:07] LABS: STOOL OCCULT BLOOD POSITIVE (NEG)
[2017-08-06 13:07] LABS: HEMOGLOBIN 12.8 g/dL (12.2-16.2)
[2017-08-06] MEDS ORDERED: ZANTAC 300300 M1 PO (13:31)
--- NOTE | 2017-08-06 13:32 | Emergency Room Report ---
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 N Clinical Suspician of Infection? N Mental Status: 1 - Regular (Normal Baseline) Sepsis Risk:Low Sepsis Risk Have you (or family members/close friends) recently traveled outside the [place]? N If Yes, where/when: Have you had exposure to infectious disease within the past month? N TB? Other? Specify: 57 years old white female who was seen in ER 4 days ago for atypical chest pain she was advised that the baby aspirin a day. This morning she took her baby aspirin at 8:00 AM at 10:00 she had a bowel movement with constipation when she found blood in the commode. She had a second episode around noon, she came back to the emergency room to be evaluated. She denies having dizziness, weakness, chest pain palpitations shortness of air abdominal pain vomiting coffee-ground emesis or melanotic stool. she reported chronic abdominal pain to Dr James in her prior ed visit but she denies abdominal pain during this visit. She admits for history of peptic ulcer disease although she never had endoscopy or prior bleeding, she is not taking H2 blockers or PPIs. She has history of hemorrhoids. she denies family hx of colon cancer. she had a colonscopy 1986 with polyp removal and non since then. Source patient, RN notes reviewed, family, old records Exam Limitations no limitations ALLERGIES Coded Allergies: Penicillins (02/19/17) hydrocodone (02/19/17) Home Medications Active Scripts NAPROXEN (NAPROSYN 500MG TAB) 500 MG PO BID #14 TAB Prov: 06/12/17 Reported Medications Ranitidine Hcl (Zantac) 75 MG PO DAILY Albuterol (Albuterol-Hfa Inhaler) 1 PUFF IH BID #1 INH MULTIVITAMIN (Multiple Vitamins) 1 TAB PO DAILY Sumatriptan Succinate 100 MG PO PRN PRN MIGRAINE #9 PROPRANOLOL HCL (Propranolol Hydrochloride) 60 MG PO DAILY #30 History Medical History General CAD? No Angina: Yes [place]: No Hypertension? Yes Hyperlipidemia? No CHF? No DVT? No PE? No COPD? No Asthma? Yes Anemia? No GERD? No Gastric ulcers? No GI Bleed? No Hernia? Yes Thyroid Problems? No Hypothyroidism? No CVA? No Seizures? No Diabetes? No Renal Insuffiency? No End Stage Renal Disease? No UTI? Yes Stones? Yes BPH? No GB Disease: No Nephritic Syndrome? No Asplenia? No Hepatitis? No Sickle Cell Disease? No Arthritis? Yes Migraines? No Cataracts? No Glaucoma? No MRSA? No HIV? No TB? No Anxiety? Yes Depression? Yes Cancer? Yes Site: CERVICAL More? 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 Respiratory no symptoms reported Cardiovascular no symptoms reported Gastrointestinal see HPI (rectal bleeding) Genitourinary no symptoms reported. Musculoskeletal no symptoms reported Skin no symptoms reported Psychiatric/Neurological no symptoms reported Physical Exam Vital Signs Vital Signs Date Time Temp Pulse Resp B/P Pulse O2 O2 Flow FiO2 Ox Delivery Rate 08/06 1456 98.2 51 18 124/73 98 08/06 1403 98.2 51 18 124/73 98 08/06 1402 51 124/73 08/06 1402 51 116/65 08/06 1401 52 117/67 08/06 1220 98.2 54 18 127/74 98 08/06 1202 98.2 54 18 127/74 98 - WBC >12,000 or <4,000 or 10% bands? 2 or more SIRS Criteria Met? B/P:127/74 MAP:91 Creatinine >2.0? UA output<0.5ml/kg/hr for 2 hrs? Platelet count >100,000? Lactate >2.0mmol/1? INR >1.2 or PTT > than 60 sec? Evidence of Organ Dysfunction? Provider documented clinical suspician of infection? N Sepsis Criteria Count: 0 Sepsis Risk: Low Sepsis Risk General Appearance normal appearance, WD/WN Eye Exam - bilateral eye normal exam, bilateral eye PERRL, bilateral eye EOMI Ear, Nose, Throat hearing grossly normal, normal ENT inspection Neck normal inspection, non-tender, supple, full range of motion Respiratory Status Yes: trachea midline, chest symmetrical, non tender chest. No: respiratory distress. Lung Sounds bilateral: normal breath sounds, lungs clear. Cardiovascular normal exam, regular rate/rhythm, no peripheral edema, no gallop, no JVD, no murmur, no rub, normal peripheral pulses Peripheral Pulses Pulses normal Yes Gastrointestinal normal bowel sounds, normal exam, non tender, soft, no organomegaly, no guarding, no rebound, soft obese nontender no guarding or rigidity, well-healed prior incisions. Back normal inspection, no CVA tenderness, no vertebral tenderness Extremities non-tender, normal range of motion, normal inspection Rectal normal rectal tone, nonpainful examination, good rectal tone, no palpable masses, external hemorrhoids grade I at 5 and 7 o'clock. normal stool no obvious blood. 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 No Results/Orders Laboratory Tests 08/06/17 1235: Sodium 140, Potassium 4.1, Chloride 104, Carbon Dioxide 30, BUN 12, Creatinine 0.6, Estimated Creat Clear 194, Estimated GFR (MDRD) 103, Glucose 98, Calcium 8.8, Total Bilirubin 0.3, AST 24, ALT 29, Alkaline Phosphatase 98, Total Protein 7.7, Albumin 3.9, Globulin 3.8 H, Albumin/Globulin Ratio 1.0 L, WBC 6.3, RBC 4.24, Hgb 12.8, Hct 38.0, MCV 89.5, RDW 13.3, Plt Count 238, MPV 7.9, Gran % 60.3, Gran # 3.8, Lymphocytes % 31.9, Monocytes % 5.4, Eosinophils % 1.9, Basophils % 0.5, Lymphocytes # 2.0, Monocytes # 0.3, Eosinophils # 0.1, Basophils # 0.0, PUBS MCHC 33.6, MCH 30.1 08/06/17 1200: Stool Occult Blood POSITIVE 08/06/17 1200: Stl Cyclospora species NOT DETECTED, Stool Rotavirus (PCR) NOT DETECTED, Stool Campylobacter PCR NOT DETECTED, Stool Giardia Lamblia PCR NOT DETECTED, Stl Norovirus GI/GII PCR NOT DETECTED, Adenovirus (PCR) NOT DETECTED, C. difficile Tox (PCR) NOT DETECTED, E. coli (PCR) NOT DETECTED, Yersinia (PCR) NOT DETECTED Current Medication Orders Sig/Obed Start time Last Medication Dose Route Stop Time Status Admin Famotidine 0 .STK-MED ONE 08/06 1433 DC .ROUTE Famotidine 40 MG ONCE ONE 08/06 1400 DC 08/06 PO 08/06 1401 1436 Orders Procedure Date/time Status ORTHOSTATIC B/P 08/06 1353 Active CBC WITH AUTO DIFF 08/06 1219 Complete CHEM 12 PROFILE 08/06 1219 Complete CULTURE, STOOL 08/06 1218 Active OVA AND PARASITE EXAM 08/06 1218 Active STOOL OCCULT BLOOD 08/06 1218 Complete DIARRHEA PANEL, PCR 08/06 1218 Complete Departure Departure Time of Disposition 1327 Disposition DC Home or Self Care(routine) Clinical Impression Primary Impression: Non compliance w medication regimen Secondary Impressions: Aspirin adverse reaction Condition STABLE Referrals Ruben OLMOS,Mir Barry (Family) Additional Instructions Her Meoccult was positive, I called rosales the occupational therapy technician and it was spotty around the edges. Also, her hemoglobin is 12g which is within normal limit and her Orhtostatic BP was negative. in fact her SBP inreased to 124 mmhg upon standing wihout tachycardia and she remained asymptomatic. I discussed with the patient her risk factrs for PUD and colon cancer, she is aware that she is due for a colonscopy. She is to stop her baby aspirin and start on zantac 300 mg daily. I called her pcp Dr North and discussed with him her history, exam and lab findings/ Dr North saw no need for admission and agreed to see her tomorrow at 10:00 am for a repeat H/H in the office. I called Dr Manning and discussed with him her history, exam and lab findings who agreed that she is duse for a colonscopy and it can be done as an outpatient, She is to call in AM and Dr MANNING will her in 1-2 days and schedule her for colonscopy. In the meanwhile she is to drink plenty of water and gotrade and observe for any more rectal bleeding and if she becomes weak or dizzy she is to return to ED for admission. She lives with her and children. I discussed this plan with the Patient and verblaized understanding. Dr. Heath Discharge Counseling Counseled pt/family regarding diagnosis, test results, medications/RX, home care, follow up needs Prescriptions Current Visit Scripts RANITIDINE HCL (Zantac) 300 MG PO DAILY #30 TAB ED Critical Care Critical Care No If Critical Care minutes are documented, the time involved in the performance of seperately reportable procedures was not counted toward critical care time documented. I directly delivered medical care to this critically ill and/or injured patient. Timely evaluation and treatment was necessary to address the significant organ system(s) dysfunction present in this patient.
[2017-08-06 14:56] VITALS: BP 124/73
== END 2017-08-06 14:58 | disposition home or self-care (01) ==
LOC: UTC 11:44 → ER 11:48 → UTC 11:48 → ER 14:58
PROVIDERS: Nurse Practitioner
DX: R19.5 Other fecal abnormalities (principal); T39.015A Adverse effect of aspirin, initial encounter; Z87.11 Personal history of peptic ulcer disease; Z79.899 Other long term (current) drug therapy; I10 Essential (primary) hypertension; J45.909 Unspecified asthma, uncomplicated
CPT/HCPCS: G0328

== ENCOUNTER → 2017-08-23 | Outpatient (CLI) | payer MEDICAID ==
[~2017-08-23] MED LIST changes: +ZANTAC 300300 M1 PO
--- NOTE | 2017-08-23 11:28 | RADIOLOGY REPORT PS360 ---
US ABD(COMPLETE-MULTI ORGANS HISTORY: EPIGASTRIC PAIN ORDERING PHYSICIAN: ALFA AHUJA PATIENT AGE: 57 years COMPARISON: None FINDINGS: PANCREAS:Unremarkable. No obvious mass or abnormal fluid collection. No ductal dilatation LIVER:No focal liver lesions demonstrated. Homogeneous echogenicity. No intrahepatic biliary ductal dilatation evident RIGHT KIDNEY:Unremarkable. Normal size and echogenicity. No hydronephrosis LEFT KIDNEY:Unremarkable. No hydronephrosis. Normal size and echogenicity. GALLBLADDER: Prior cholecystectomy. Common bile duct is normal at 2 mm AORTA:No evidence of aneurysmal dilatation. SPLEEN:Unremarkable. Normal size and echogenicity ASCITES:None demonstrated. Patient has had a prior hernia repair. There is questionable disruption of abdominal wall at the site of the hernia repair. This could be better evaluated with CT if clinically desired. IMPRESSION: 1. No acute findings. 2. Prior cholecystectomy. 3. Prior hernia repair with possible disruption of the abdominal wall at the site of the hernia repair which may be better evaluated with CT if clinically desired
--- NOTE | 2017-08-28 14:52 | RADIOLOGY REPORT PS360 ---
DIG MAMM-SCREEN [facility] W/CAD CAD Screening COMPARISON: Digital mammograms 10/08/2015 and analog mammograms June 2009 INDICATION: There is a history of breast cancer in patient's 2 aunts. TECHNIQUE: Standard CC and MLO images were obtained. R2 CAD reviewed. FINDINGS: The breasts are composed primarily of fat with scattered fibroglandular densities in each breast. There is no new or suspicious lesion in either breast and there are no suspicious microcalcifications. IMPRESSION: Fibrofatty parenchyma with no suspicious lesion seen recommend yearly follow-up BI-RADS CATEGORY: 1_Negative RECOMMENDED FOLLOWUP: 12M 12 MONTH FOLLOW-UP (A letter has been sent to the patient regarding results of the study.)
== END ==
LOC: RAD 09:25
DX: Z12.31 Encounter for screening mammogram for malignant neoplasm of breast (principal); N64.4 Mastodynia
CPT/HCPCS: G0202

== ENCOUNTER → 2017-08-24 | Outpatient (CLI) | payer MEDICAID ==
[2017-08-24 09:27] LABS: STOOL OCCULT BLOOD NEGATIVE (NEG)
== END ==
LOC: LAB 09:03
PROVIDERS: Nurse Practitioner Family
DX: K92.1 Melena (principal); R53.83 Other fatigue

== ENCOUNTER 2017-09-23 12:48 | Emergency (ER) | payer MEDICAID ==
[~2017-09-23] VITALS: Ht 170.2 cm; Wt 104.3 kg
--- OUTSIDE RECORDS SUMMARY | 2017-09-23 12:55 | External Medical Summary Rpt | CCD ---
Author Author , ISABELLE Organization ISABELLE Address Unknown Phone Care Team Providers Care Customer Service Operator Name Role Phone [facility], Unavailable Unavailable [facility] Antwon Miranda MD, Unavailable Unavailable Antwon Miranda MD [facility] Unavailable Unavailable [id number] # [phone], [facility] [id number] # [phone] [facility] Un[facility]AC[facility] Purpose Continuity of Care Document - 01-29-2010 through 2016 Problems Code Diagnosis DOS Provider Status 841.9 841.9 05-06-2013 [facility] ELBOW/FOREA [facility] NOS 842.10 842.10 05-06-2013 [facility] 847.2 847.2 05-06-2013 [facility] REGION E849.8 E849.8 05-06-2013 Davian ACCIDENT IN [facility] [place] E885.9 E885.9 FALL 05-06-2013 Davian FROM [facility] SLIPPING, Hospital TRIPPING, OR STUMBLING [facility] Allergies, Adverse Reactions, Alerts Type Drug Allergy Adverse Reaction to Substance Substance Reaction Severity PCN (penicillin) Unknown Unknown Penicillin Unknown Unknown Penicillin G Unknown Unknown Hydrocodone Unknown Unknown Medications Na ND Rx Da Fi Fi Am Da Di Ph RX Ph St me C No te ll ll ou ys ag ar # ys at rm s nt no ma ic us Or Da si cy ia de te s n re d IN 51 06 0 No DO 07 [...] 8 PS # UL 03 E 93 PA 23 09 10 6 30 30 RI [...] TA 8 BL # ET 03 93 PE 00 02 10 2 59 1 RI 87 RI Ac RM 47 -1 -2 .0 TE 13 SH ti ET 25 8- 5- 00 10 ER ve HR 24 20 20 AI IN 26 11 11 D RI 7 PH CH 1% AR AR MA D LO CY TI ON 03 93 8 # 03 93 00 09 10 6 9. [...] 93 BL 8 ET # 03 93 PA 23 09 09 6 30 30 RI [...] 1 30 30 RI 89 RI Ac PA 09 -2 -2 .0 TE 61 SH [...] 2. 5 MG /[address] ERNST 53 08 08 28 7 RI 89 GA Ac LF 74 -0 -0 .0 TE 36 IN ti AM 60 4- 4- 00 91 EY ve ET 27 20 20 AI HO 20 11 11 D RI XA 5 PH CH ZO AR AE LE MA L -T CY S MP 03 DS 93 8 TA # BL 03 ET 93 CE 00 08 08 21 7 RI 89 GA Ac PH 09 -0 -0 .0 TE 36 IN ti AL 33 4- 4- 00 90 EY ve EX 14 20 20 AI IN 70 11 11 D RI 1 PH CH 50 AR AE 0 MA L MG CY S CA 03 PS 93 UL 8 E # 03 93 ME 59 08 08 21 6 RI 89 GA Ac TH 74 -0 -0 .0 TE 36 IN ti YL 60 4- 4- 00 89 EY ve PA 00 20 20 AI ED 10 11 11 D RI NI 3 PH CH SO AR AE LO MA L NE CY S 4 03 MG 93 8 DO # SE 03 PK 93 00 08 08 15 5 RI 89 GA Ac 18 -0 -0 .0 TE 36 IN ti 50 4- 4- 00 88 EY ve 61 20 20 AI 30 11 11 D RI 1 PH CH AR AE MA L CY S 03 93 8 # 03 93 PE [...] 03 93 8 # 03 93 00 05 07 5 6. 25 RI 88 MO Ac 09 -2 -2 00 TE 44 SE ti 30 3- 8- 0 22 S ve [address] 49 11 11 D EP 0 PH HE AR N MA A CY 03 93 8 # 03 93 RA 00 05 [...] BL 93 ET 8 # 03 93 PA 23 05 07 5 30 30 RI 88 MO Ac OP 15 -2 -2 .0 TE 43 SE ti RA 50 3- 8- 00 94 S ve NO [address] LO 21 11 11 D EP L 0 PH HE 40 AR N MA A MG CY TA 03 BL 93 ET 8 # 03 93 HY 67 05 07 5 90 [...] BL # ET 03 93 FL 50 05 07 2 30 30 RI 88 MO Ac UO 11 -2 -2 .0 TE 43 SE ti XE 10 3- 8- 00 91 S ve TI [address] NE 70 11 11 D EP 1 PH HE HC AR N L MA A 10 CY MG 03 93 CA 8 PS # UL 03 E 93 AL 00 07 07 11 18 [...] 93 BL 8 ET # 03 93 00 10 06 3 9. 30 RI 85 EN Ac 09 -0 -0 00 TE 23 GL ti 30 1- 9- 0 75 AN ve 22 20 20 AI D 49 10 11 D SH 0 PH AR AR I MA L CY 03 93 8 # 03 93 FL 50 05 [...] 8 PS # UL 03 E 93 RA 00 05 05 11 60 30 RI 88 MO Ac NI 17 -2 -2 .0 TE 43 SE ti TI 24 3- 3- 00 97 S ve DI [address] NE 74 11 11 D EP 9 PH HE 15 AR N 0 MA A MG CY TA 03 BL 93 ET 8 # 03 93 PA 23 05 05 5 30 30 RI 88 MO Ac OP 15 -2 -2 .0 TE 43 SE ti RA 50 3- 3- 00 94 S ve NO [address] LO 21 11 11 D EP L 0 PH HE 40 AR N MA A MG CY TA 03 BL 93 ET 8 # 03 93 HY 67 05 [...] TA 8 BL # ET 03 93 64 05 05 5 15 20 RI 88 MO Ac 45 -2 -2 .0 TE 43 SE ti 50 3- 3- 00 89 S ve [address] 39 11 11 D EP 4 PH HE AR N MA A CY 03 93 8 # 03 93 00 10 05 3 9. 30 RI 85 EN Ac 09 -0 -0 00 TE 23 GL ti 30 1- 3- 0 75 AN ve 22 20 20 AI D 49 10 11 D SH 0 PH AR AR I MA L CY 03 93 8 # 03 93 FU 63 02 04 1 30 30 RI 87 EN Ac RO 30 -1 -2 .0 TE 13 GL ti SE 40 8- 5- 00 03 AN ve RI 62 20 20 AI D DE 41 [...] # ET 03 93 RA 00 10 04 5 [...] CY 03 93 8 # 03 93 PA 23 10 04 5 30 30 RI 85 EN Ac OP 15 -0 -2 .0 TE 23 GL ti RA 50 1- 5- 00 74 AN ve NO 11 20 20 AI D LO 21 10 11 D SH L 0 PH AR 40 AR I MA L MG CY TA 03 BL 93 ET 8 # 03 93 AL 00 06 04 9 18 30 YO 21 WR Ac BU 48 -2 -1 0. UR 55 IG ti TE 79 1- 8- 00 8 HT ve RO 50 20 20 0 PH L 16 10 11 AR AR ERNST 0 MA DY L CY C 2. 5 MG /3 [address] SO [address] HY 00 01 03 2 30 10 RI [address] 16 -2 -2 .0 TE 64 SE ti OC 80 5- 4- 00 58 S ve OR [address] TI 03 11 11 D EP SO 1 PH HE NE AR N MA A 2. CY 5% 03 CR 93 EA 8 M # 03 93 PE 00 02 03 59 1 RI 87 EN Ac RM 47 -2 -2 .0 TE 64 GL ti ET 25 5- 4- 00 60 AN ve HR 24 20 20 AI D IN 26 11 11 D SH 7 PH AR 1% AR I MA L LO CY TI ON 03 93 8 # 03 93 CY 00 03 03 30 10 RI 87 EN Ac CL 37 -1 -1 .0 TE 56 GL ti OB 80 8- 8- 00 80 AN ve EN 75 20 20 AI D ZA 11 11 11 D SH PA 0 PH AR IN AR I E [...] TE 13 GL ti ON 13 8 00 02 AN ve AZ 19 20 20 AI D OL 68 11 11 D SH E 9 PH AR 0. AR I 4% MA L CY CR EA 03 M 93 8 # 03 93 FU 63 02 02 1 30 30 RI 87 EN Ac RO 30 -1 -1 .0 TE 13 GL ti SE 40 8 8 00 03 AN ve RI 62 20 20 AI D DE 41 11 11 D SH 0 PH AR 20 AR I MA L MG CY TA 03 BL 93 ET 8 # 03 93 PE 00 02 02 2 59 1 RI 87 RI Ac RM 47 -1 -1 .0 TE 13 SH ti ET 25 8 8 00 10 ER ve HR 24 20 [...] 2. 5 MG /[address] SM 49 11 01 3 59 1 RI 85 RI Ac 34 -2 -2 .0 TE 94 SH ti LI 80 2- 1- 00 41 ER ve CE 46 20 20 AI 03 10 11 D RI TR 4 PH CH EA AR AR TM MA D EN CY T PE 03 RM 93 ET 8 HR # IN 03 93 HY 00 01 01 28 [...] NT 8 ME # NT 03 93 CE 00 01 01 40 [...] 93 UL 8 E # 03 93 00 10 01 3 9. 30 RI 85 EN Ac 09 -0 -2 00 TE 23 GL ti 30 1- 1- 0 75 AN ve 22 20 20 AI D 49 10 11 D SH 0 PH AR AR I MA L CY 03 93 8 # 03 93 PA 50 10 01 5 30 30 RI [...] 03 93 8 # 03 93 RA 53 10 01 5 [...] ET 8 # 03 93 HY 67 10 01 5 90 30 RI [address] 40 -0 -2 .0 TE 23 GL ti OX 50 1- 1- 00 10 AN ve YZ 57 20 20 AI D IN 71 10 11 D SH E 0 PH AR HC AR I L MA L 50 CY MG 03 93 TA 8 BL # ET 03 93 SM 49 11 01 3 [...] ET 8 HR # IN 03 93 00 10 11 3 9. 30 RI 85 EN Ac 09 -0 -0 00 TE 23 GL ti 30 1- 8- 0 75 AN ve 22 20 20 AI D 49 10 10 D SH 0 PH AR AR I MA L CY 03 93 8 # 03 93 PA 50 10 11 5 30 30 RI [...] 8 # 03 93 RA 00 10 11 5 [...] 8 # 03 93 HY 68 10 11 5 [...] # ET 03 93 AL 00 06 10 9 [...] BL 93 ET 8 # 03 93 PA 50 10 10 5 30 30 RI [...] 8 # 03 93 RA 00 10 10 5 [...] 8 BL # ET 03 93 00 03 09 1 9. [...] 93 BL 8 ET # 03 93 AL 00 06 08 9 18 30 YO 21 WR Ac BU 48 -2 -2 0. UR 55 IG ti TE 79 1- 6- 00 8 HT ve RO 50 20 20 0 PH L 16 10 10 AR AR ERNST 0 MA DY L CY C 2. 5 MG /[address] FL 00 08 08 2. 2 RI 84 EN Ac UC 17 -2 -2 00 TE 72 GL ti ON 25 6- 6- 0 93 AN ve AZ 41 20 20 AI D OL 21 10 10 D SH E 1 PH AR 15 AR I 0 MA L MG CY TA 03 BL 93 ET 8 # 03 93 59 08 08 5 [...] TA 8 BL # ET 03 93 PE 00 08 08 59 [...] CY 03 93 8 # 03 93 PA 50 05 08 2 30 30 RI [...] ON 03 93 8 # 03 93 PA 50 05 07 2 30 30 RI [...] AR AR 6 MA DY CY C PA 50 05 05 2 30 30 RI 83 RI Ac OP 11 -1 -1 .0 TE 33 SH ti RA 10 1 92 ER ve NO 46 20 20 [...] .0 TE 10 GL ti AT 50 3 3- 00 88 AN ve AL 11 20 20 AI D 60 10 10 D SH 19 1 PH AR AR I TA MA L BL CY ET 03 93 8 # 03 93 DE 51 04 04 60 30 RI 83 EN Ac SO 67 -2 -2 .0 TE 10 GL ti XI 21 3 3- 00 89 AN ve ME 26 20 20 AI D TA 10 10 10 D SH SO 3 PH AR NE AR I MA L 0. CY 05 % 03 GE 93 L 8 # 03 93 RA 00 03 [...] BL 93 ET 8 # 03 93 PA 00 03 03 12 3 RI 82 EN Ac OM 78 -2 -2 .0 TE 72 GL ti ET 11 6- 6- 00 43 AN ve FORTE 83 20 20 AI D ZI 00 10 10 D SH NE 1 PH AR AR I 25 MA L CY MG 03 TA 93 BL 8 ET # 03 93 PA 50 03 03 5 30 30 RI [...] MA DY CY C HY 68 01 03 3 60 [address] 46 -1 -1 .0 TE 75 GL ti OX 20 5- 9- 00 30 AN ve YZ 36 20 20 AI D IN 20 10 10 D SH E 1 PH AR HC AR I L MA L 50 CY MG 03 93 TA 8 BL # ET 03 93 SE 13 01 03 5 30 30 RI 81 EN Ac -N 92 -1 -1 .0 TE 73 GL ti AT 50 5 9- 00 17 AN ve AL 11 20 20 AI D 60 10 10 D SH 19 1 PH AR AR I TA MA L BL CY ET 03 93 8 # 03 93 59 08 03 2 8. 30 RI 80 MO Ac 31 -1 -0 50 TE 99 SE ti 00 7- 5- 0 67 S ve [address] 92 09 10 D EP 0 PH HE AR N MA A CY 03 93 8 # 03 93 Vital Signs 05-06-2013 21:08 Name Value Interpretat Reference Comment ion Range Body 97.8 [degF] Temperature BP 96 mm[Hg] Diastolic BP Systolic 150 mm[Hg] Heart 68 /min Rate/Pulse O2% 98 % Respiratory 20 /min Rate 05-06-2013 19:50 Name Value Interpretat Reference Comment ion Range BP 93 mm[Hg] Diastolic BP Systolic 155 mm[Hg] Heart 71 /min Rate/Pulse O2% 97 % Respiratory 20 /min Rate Encounters Encounter Start End Date Code Location Performer Type Date Emergency JORGE A Miranda MD (ER) 3 19:39 3 21:13 [facility]
--- OUTSIDE RECORDS SUMMARY | 2017-09-23 12:55 | External Medical Summary Rpt | CCD ---
Author Author , ISABELLE Organization ISABELLE Address Unknown Phone Care Team Providers Care Locker Attendant Name Role Phone [facility], Unavailable Unavailable [facility] Antwon Miranda MD, Unavailable Unavailable Antwon Miranda MD [facility] Unavailable Unavailable [id number] # [phone], [facility] [id number] # [phone] [facility] Un[facility] Un[facility]ARMACY Purpose Continuity of Care Document - 01-29-2010 through 2016 Problems Code Diagnosis DOS Provider Status 841.9 841.9 05-06-2013 [facility] N[facility] 842.10 842.10 05-06-2013 Davian [facility] 847.2 847.2 05-06-2013 [facility] REGION E849.8 E849.8 05-06-2013 Davian ACCIDENT IN [facility] E885.9 E885.9 FALL 05-06-2013 Davian FROM [facility] SLIPPING, Hospital TRIPPING, OR STUMBLING [facility] Allergies, Adverse Reactions, Alerts Type Drug [...] 8 PS # UL 03 E 93 [place] 23 09 10 6 30 30 RI [...] 93 BL 8 ET # 03 93 IL 23 09 09 6 30 30 RI [...] 1 30 30 RI 89 RI Ac IL 09 -2 -2 .0 TE 61 SH [...] 60 4- 4- 00 89 EY ve IL 00 20 20 AI ED 10 11 [...] 20 20 AI 30 11 11 D CA 1 PH CH AR AE MA L [...] BL 93 ET 8 # 03 93 IL 23 05 07 5 30 30 RI [...] BL 93 ET 8 # 03 93 IL 23 05 05 5 30 30 RI [...] CY 03 93 8 # 03 93 IL 23 10 04 5 30 30 RI [...] D ZA 11 11 11 D SH IL 0 PH AR IN AR I E [...] 40 8 8 00 03 AN ve CA 62 20 [...] CY 03 93 8 # 03 93 IL 50 10 01 5 30 30 RI [...] CY 03 93 8 # 03 93 IL 50 10 11 5 30 30 RI [...] BL 93 ET 8 # 03 93 IL 50 10 10 5 30 30 RI [...] PH L 16 10 10 AR AR RENST 0 MA DY L CY C 2. [...] CY 03 93 8 # 03 93 IL 50 05 08 2 30 30 RI [...] ON 03 93 8 # 03 93 IL 50 05 07 2 30 30 RI [...] AR AR 6 MA DY CY C IL 50 05 05 2 30 30 RI [...] BL 93 ET 8 # 03 93 IL 00 03 03 12 3 RI 82 EN Ac OM 78 -2 -2 .0 TE 72 GL ti ET 11 6- 6- 00 43 AN ve FORTE 83 20 20 AI D ZI 00 10 10 D SH NE 1 PH AR AR I 25 MA L CY MG 03 TA 93 BL 8 ET # 03 93 [place] 50 03 03 5 30 30 RI [...] Miranda MD (ER) 3 19:39 3 21:13 [facility]
--- OUTSIDE RECORDS SUMMARY | 2017-09-23 12:58 | External Medical Summary Rpt | CCD ---
Demographics Preferred Language Latvian Marital Status Unknown Temple Affiliation Unknown Race Unknown Ethnic Group Unknown Author Author , ISABELLE EDWARDSMARIO Address Unknown Phone [email or web address] Team Providers Care Administrative Analyst Name Role Phone [facility], Unavailable Unavailable [facility] Unavailable Unavailable [id number] # [phone], [facility] [id number] # [phone] [facility] Purpose Continuity of Care Document - 01-29-2010 through 2016 Medications Na ND Rx Da Fi Fi Am Da Di Ph RX Ph St me C No te ll ll ou ys ag ar # ys at rm s nt no ma ic us Or Da si cy ia de te s n re d TR 00 10 10 2 30 7 RI 90 WR Ac AM 09 -2 -2 .0 TE 53 IG ti AD 30 7- 7- 00 05 HT ve OL 05 20 20 AI 80 11 11 D AR HC 1 PH DY L AR C 50 MA CY MG 03 TA 93 BL 8 ET # 03 93 59 09 10 6 [...] 5 MG /[address] 00 08 08 15 5 RI 89 GA Ac 18 -0 -0 .0 TE 36 IN ti 50 4- 4- 00 88 EY ve 61 20 20 AI [address] 1 PH CH AR AE MA L CY S 03 93 8 # 03 93 ME 59 08 08 21 6 RI 89 GA Ac TH 74 -0 -0 .0 TE 36 IN ti YL 60 4- 4- 00 89 EY ve UT 00 20 20 AI ED [address] NI 3 PH CH SO AR AE LO MA L NE CY S 4 03 MG 93 8 DO # SE 03 PK 93 CE 00 08 08 21 7 RI 89 GA Ac PH 09 -0 -0 .0 TE 36 IN ti AL 33 4- 4- 00 90 EY ve EX 14 20 20 AI IN [address] 1 PH CH 50 AR AE 0 MA L MG CY S CA 03 PS 93 UL 8 E # 03 93 ERNST 53 08 08 28 7 RI 89 GA Ac LF 74 -0 -0 .0 TE 36 IN ti AM 60 4- 4- 00 91 EY ve ET 27 20 20 AI HO [address] XA 5 PH CH ZO AR AE LE MA L -T CY S MP 03 DS 93 8 TA # BL 03 ET 93 PE 00 02 07 2 59 1 RI 87 RI Ac RM 47 -1 -2 .0 TE 13 SH ti ET 25 8- 8- 00 10 ER ve HR 24 20 20 AI IN 26 11 11 D RI 7 PH CH 1% AR AR MA D LO CY TI ON 03 93 8 # 03 93 FL 50 05 07 2 [...] CY 03 93 8 # 03 93 64 05 05 5 [...] 40 8- 5- [address] 62 20 20 AI D DE 41 [...] ON 03 93 8 # 03 93 TE [...] 40 8- 8- [address] 62 20 20 AI D DE 41 [...] NT 8 ME # NT 03 93 00 10 01 3 9. [...] 5 MG /[address] 59 08 08 5 8. 30 RI [...] TE 33 SH ti RA 10 1 3- 00 92 ER ve NO 46 20 20 AI LO 90 10 10 D RI L 3 PH CH 40 AR AR MA D MG CY TA 03 BL 93 ET 8 # 03 93 16 06 06 9 18 30 YO 21 WR Ac 25 -2 -2 0. UR 55 IG ti 20 1 8 HT ve 09 20 20 0 PH 76 10 10 AR AR 6 MA DY CY C UT 50 05 05 2 30 30 RI 83 RI Ac OP 11 -1 -1 .0 TE 33 SH ti RA 10 1 00 92 ER ve NO 46 20 [...]
--- OUTSIDE RECORDS SUMMARY | 2017-09-23 12:58 | External Medical Summary Rpt | CCD ---
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 Name Role Phone [facility], Unavailable Unavailable [facility] Unavailable Unavailable [id number] # [phone], [facility] [id number] # [phone] [facility] Unavailable Unavailable [...] BL 93 ET 8 # 03 93 [place] 23 09 10 6 30 30 RI [...] 93 BL 8 ET # 03 93 [place] 23 09 09 6 30 30 RI [...] 1 30 30 RI 89 RI Ac NJ 09 -2 -2 .0 TE 61 SH [...] 20 20 AI 30 11 11 D FL 1 PH CH AR AE MA L CY S 03 93 8 # 03 93 ME 59 08 08 21 6 RI 89 GA Ac TH 74 -0 -0 .0 TE 36 IN ti YL 60 4- 4- 00 89 EY ve NJ 00 20 20 AI ED 10 11 11 D FL NI 3 PH CH SO AR AE LO MA L NE CY S 4 03 MG 93 8 DO # SE 03 PK 93 CE 00 08 08 21 7 RI 89 GA Ac PH 09 -0 -0 .0 TE 36 IN ti AL 33 4- 4- 00 90 EY ve EX 14 20 20 AI IN 70 11 11 D FL 1 PH CH 50 AR AE 0 MA L MG CY S CA 03 PS 93 UL 8 E # 03 93 ERNST 53 08 08 28 7 RI 89 GA Ac LF 74 -0 -0 .0 TE 36 IN ti AM 60 4- 4- 00 91 EY ve ET 27 20 20 AI HO 20 11 11 D FL XA 5 PH CH ZO AR AE [...] TA 8 BL # ET 03 93 [place] 23 05 07 5 30 30 RI [...] TA 8 BL # ET 03 93 [place] 23 05 05 5 30 30 RI [...] CY 03 93 8 # 03 93 [place] 23 10 04 5 30 30 RI [...] 40 8- 5- 00 03 AN ve FL 62 20 20 AI D DE 41 [...] D ZA 11 11 11 D SH NJ 0 PH AR IN AR I E [...] 40 8- 8- 00 03 AN ve FL 62 20 20 AI D DE 41 [...] CY 03 93 8 # 03 93 NJ 50 10 01 5 30 30 RI [...] CY 03 93 8 # 03 93 NJ 50 10 11 5 30 30 RI [...] CY 03 93 8 # 03 93 NJ 50 10 10 5 30 30 RI [...] CY 03 93 8 # 03 93 [place] 50 05 08 2 30 30 RI [...] BL 93 ET 8 # 03 93 NJ 50 05 07 2 30 30 RI [...] AR AR 6 MA DY CY C NJ 50 05 05 2 30 30 RI [...] GE 93 L 8 # 03 93 NJ 50 03 03 5 30 30 RI 82 EN Ac OP 11 -2 -2 .0 TE 72 GL ti RA 10 6- 6- 00 42 AN ve NO 46 20 20 AI D LO 90 10 10 D SH L 3 PH AR 40 AR I MA L MG CY TA 03 BL 93 ET 8 # 03 93 [place] 00 03 03 12 3 RI 82 [...]
--- OUTSIDE RECORDS SUMMARY | 2017-09-23 12:59 | External Medical Summary Rpt | CCD ---
Demographics Preferred Language Mauritanian Marital Status Unknown Yazdanism Affiliation Unknown Race Unknown Ethnic Group Unknown Author Author , ISABELLE WALTON Address Unknown Phone Immunization No patient found.
--- OUTSIDE RECORDS SUMMARY | 2017-09-23 12:59 | External Medical Summary Rpt ---
Author Author ISABELLE Ceballos, [employer] Address Unknown Phone Unavailable Results Hemoglobin.gastrointestinal [Presence] in Stool Observa Value Referen Units Interpr Notes Date tion ce etation Range Hemoglo NEGATIV NEG No No No Sep 28 bin.gas E informa informa informa 2017 trointe tion in tion in tion in 8:30 AM stinal source source source [Presen data data data ce] in Stool --1st specime n CBC W Auto Differential panel in Blood Observa Value Referen Units Interpr Notes Date tion ce etation Range Basophils 0 - 0.2 K/MM3 Normal No Sep 11 informati 2016 2:09 [#/volume on in PM ] in source Blood by data Automated count Basophils 0.1 - 2.0 % Normal No Sep 11 /100 informati 2017 2:09 leukocyte on in PM s in source Blood by data Automated count Eosinophi 0.0 - 0.4 K/mm3 Normal No Sep 11 ls informati 2016 2:09 [#/volume on in PM ] in source Blood by data Automated count Eosinophi 0.1 - % Normal No Sep 11 ls/100 12.0 informati 2016 2:09 leukocyte on in PM s in source Blood by data Automated count Granulocy 1.8 - 7.8 K/mm3 Normal No Sep 11 pj informati 2017 2:09 [#/volume on in PM ] in source Blood by data Automated count Granulocy 37.0 - % Normal No Sep 11 pj/100 80.0 informati 2017 2:09 leukocyte on in PM s in source Blood by data Automated count Hematocri 37.0 - % Normal No Sep 11 t [Volume 47.0 informati 2016 2:09 on in PM Fraction] source of Blood data Hemoglobi 12.2 - g/dL Normal No Sep 11 n 16.2 informati 2016 2:09 [Mass/vol on in PM ume] in source Blood data Lymphocyt 0.7 - 4.5 K/mm3 Normal No Sep 11 es informati 2017 2:09 [#/volume on in PM ] in source Unspecifi data ed specimen by Automated count Lymphocyt 10 - 50.0 % Normal No Sep 11 es informati 2017 2:09 [#/volume on in PM ] in source Unspecifi data ed specimen by Automated count Erythrocy 27 - 31.2 pg Normal No Sep 11 te mean informati 2017 2:09 corpuscul on in PM ar source hemoglobi data n [Entitic mass] Erythrocy 31.8 - g/dl Normal No Sep 11 te mean 35.4 informati 2017 2:09 corpuscul on in PM ar source hemoglobi data n concentra tion [Mass/vol ume] by Automated count Erythrocy 82.2 - fl Normal No Sep 11 te mean 97.8 informati 2016 2:09 corpuscul on in PM ar volume source [Entitic data volume] by Automated count Monocytes 0.1 - 1.0 K/mm3 Normal No Sep 11 informati 2016 2:09 [#/volume on in PM ] in source Blood by data Automated count Monocytes 1.7 - 9.3 % Normal No Sep 11 /100 informati 2017 2:09 leukocyte on in PM s in source Blood by data Automated count Platelet 7.4 - fl Normal No Sep 11 mean 10.4 informati 2016 2:09 volume on in PM [Entitic source volume] data in Blood by Automated count Platelets 142 - 424 K/mm3 Normal No Sep 11 inform2016 2:09 [#/volume on in PM ] in source Blood data Erythrocy 4.2 - 5.4 M/mm3 Normal No Sep 11 pj informati 2016 2:09 [#/volume on in PM ] in source Amniotic data fluid Erythrocy 11.5 - % Normal No Sep 11 te 17.5 informati 2016 2:09 distribut on in PM ion width source [Entitic data volume] by Automated count Leukocyte 4.8 - K/MM3 Normal No Sep 11 s 10.8 informati 2016 2:09 [#/volume on in PM ] in source Blood data Comprehensive metabolic 2000 panel in Serum or Plasma Observa Value Referen Units Interpr Notes Date tion ce etation Range Albumin/G 1.1 - 1.8 No Low No Sep 10 lobulin informati informati 2016 [Mass on in on in 12:35 PM ratio] in source source Serum or data data Plasma Albumin 3.4 - 5.0 gm/dL Normal No Sep 10 [Mass/vol informati 2017 ume] in on in 12:35 PM Serum or source Plasma data Alkaline 46 - 116 U/L Normal No Sep 10 phosphata informati 2017 se on in 12:35 PM [Enzymati source c data activity/ volume] in Serum or Plasma Bilirubin 0.2 - 1.0 mg/dL Normal No Sep 10 .total informati 2017 [Mass/vol on in 12:35 PM ume] in source Serum or data Plasma Urea 7 - 18 mg/dL Normal No Sep 10 nitrogen informati 2017 [Mass/vol on in 12:35 PM ume] in source Serum or data Plasma Calcium 8.5 - mg/dL Normal No Sep 10 [Mass/vol 10.1 informati 2017 ume] in on in 12:35 PM Serum or source Plasma data Chloride 98 - 107 mmoL/L Normal No Sep 10 [Moles/vo informati 2017 lume] in on in 12:35 PM Serum or source Plasma data Carbon 21.0 - mmoL/L Normal No Sep 10 dioxide, 32.0 informati 2017 total on in 12:35 PM [Moles/vo source lume] in data Serum or Plasma Creatinin 0.55 - mg/dL Normal No Sep 10 e 1.02 informati 2017 [Mass/vol on in 12:35 PM ume] in source Serum or data Plasma Creatinin 50 - 200 ML/MIN Normal No Sep 10 e renal informati 2017 clearance on in 12:35 PM source predicted data by Cockcroft -Gault formula Estimated 59- ML/MIN No REFERENCE Sep 10 informati RANGE: 2017 glomerula on in >60 12:35 PM r source ML/MIN/1. filtratio data 73 SQUARE n rate METERSIf (GF this patient is -A merican, then multiply theresult by 1.210. Globulin 1.3 - 3.2 gm/dL High No Sep 10 [Mass/vol informati 2017 ume] in on in 12:35 PM Serum source data Glucose 74 - 106 mg/dL Normal No Sep 10 [Mass/vol informati 2017 ume] in on in 12:35 PM Serum or source Plasma data Potassium 3.5 - 5.1 mmoL/L Normal No Sep 10 informati 2017 [Moles/vo on in 12:35 PM lume] in source Serum or data Plasma Sodium 136 - 145 mmoL/L Normal No Sep 10 [Moles/vo 2016 lume] in on in 12:35 PM Serum or source Plasma data Aspartate 15 - 37 U/L Normal No Sep 10 2016 aminotran on in 12:35 PM sferase source [Enzymati data c activity/ volume] in Serum or Plasma Alanine 12 - 78 U/L Normal No Sep 10 aminotran inform2016 sferase on in 12:35 PM [Enzymati source c data activity/ volume] in Serum or Plasma Protein 6.4 - 8.2 gm/dL Normal No Sep 10 [Mass/vol informati 2016 ume] in on in 12:35 PM Serum or source Plasma data CBC W Auto Differential panel in Blood Observa Value Referen Units Interpr Notes Date tion ce etation Range Basophils 0 - 0.2 K/MM3 Normal No Sep 10 2016 [#/volume on in 12:35 PM ] in source Blood by data Automated count Basophils 0.1 - 2.0 % Normal No Sep 10 /100 2016 leukocyte on in 12:35 PM s in source Blood by data Automated count Eosinophi 0.0 - 0.4 K/mm3 Normal No Sep 10 ls 2016 [#/volume on in 12:35 PM ] in source Blood by data Automated count Eosinophi 0.1 - % Normal No Sep 10 ls/100 12.0 inform2016 leukocyte on in 12:35 PM s in source Blood by data Automated count Granulocy 1.8 - 7.8 K/mm3 Normal No Sep 10 pj 2016 [#/volume on in 12:35 PM ] in source Blood by data Automated count Granulocy 37.0 - % Normal No Sep 10 pj/100 80.0 inform2016 leukocyte on in 12:35 PM s in source Blood by data Automated count Hematocri 37.0 - % Normal No Sep 10 t [Volume 47.0 informati 2016 on in 12:35 PM Fraction] source of Blood data Hemoglobi 12.2 - g/dL No No Sep 10 n 16.2 informati informati 2016 [Mass/vol on in on in 12:35 PM ume] in source source Blood data data Lymphocyt 0.7 - 4.5 K/mm3 Normal No Sep 10 es 2016 [#/volume on in 12:35 PM ] in source Unspecifi data ed specimen by Automated count Lymphocyt 10 - 50.0 % Normal No Sep 10 es 2017 [#/volume on in 12:35 PM ] in source Unspecifi data ed specimen by Automated count Erythrocy 27 - 31.2 pg Normal No Sep 10 te mean inform2016 corpuscul on in 12:35 PM ar source hemoglobi data n [Entitic mass] Erythrocy 31.8 - g/dl Normal No Sep 10 te mean 35.4 inform2016 corpuscul on in 12:35 PM ar source hemoglobi data n concentra tion [Mass/vol ume] by Automated count Erythrocy 82.2 - fl Normal No Sep 10 te mean 97.8 inform2016 corpuscul on in 12:35 PM ar volume source [Entitic data volume] by Automated count Monocytes 0.1 - 1.0 K/mm3 Normal No Sep 10 2016 [#/volume on in 12:35 PM ] in source Blood by data Automated count Monocytes 1.7 - 9.3 % Normal No Sep 10 /100 2016 leukocyte on in 12:35 PM s in source Blood by data Automated count Platelet 7.4 - fl Normal No Sep 10 mean 10.4 inform2016 volume on in 12:35 PM [Entitic source volume] data in Blood by Automated count Platelets 142 - 424 K/mm3 Normal No Sep 10 2016 [#/volume on in 12:35 PM ] in source Blood data Erythrocy 4.2 - 5.4 M/mm3 Normal No Sep 10 pj 2016 [#/volume on in 12:35 PM ] in source Amniotic data fluid Erythrocy 11.5 - % Normal No Sep 10 te 17.5 2016 distribut on in 12:35 PM ion width source [Entitic data volume] by Automated count Leukocyte 4.8 - K/MM3 Normal No Sep 10 s 10.8 2016 [#/volume on in 12:35 PM ] in source Blood data DIARRHEA PANEL,PCR Observa Value Referen Units Interpr Notes Date tion ce etation Range Adenovi NOT NOT No No No Sep 10 cole DETECTE DETECTE informa informa informa 2016 40+41 D tion in tion in tion in 12:00 Ag source source source PM [Presen data data data ce] in Stool Aeromon NOT NOT No No No Sep 10 as DETECTE DETECTE informa informa informa 2017 salmoni D tion in tion in tion in 12:00 everette source source source PM [Presen data data data ce] in Unspeci fied specime n Astrovi NOT NOT No No No Sep 10 cole DETECTE DETECTE informa informa informa 2017 [Presen D tion in tion in tion in 12:00 ce] in source source source PM Stool data data data by Electro n microsc opy Campylo NOT NOT No No No Sep 10 bacter DETECTE DETECTE informa informa informa 2017 sp Ab D tion in tion in tion in 12:00 [Presen source source source PM ce] in data data data Serum Clostri NOT NOT No No No Sep 10 dium DETECTE DETECTE informa informa informa 2017 diffici D tion in tion in tion in 12:00 le source source source PM toxin data data data A+B [Presen ce] in Stool Cryptos NOT NOT No No No Sep 10 poridiu DETECTE DETECTE informa informa informa 2017 m sp Ag D tion in tion in tion in 12:00 source source source PM [Presen data data data ce] in Unspeci fied specime n Cyclosp NOT NOT No No No Sep 10 ora DETECTE DETECTE informa informa informa 2017 cayetan D tion in tion in tion in 12:00 mervin source source source PM [Presen data data data ce] in Unspeci fied specime n Escheri NOT NOT No No No Sep 10 pa DETECTE DETECTE informa informa informa 2017 coli D tion in tion in tion in 12:00 [Presen source source source PM ce] in data data data Unspeci fied specime n by Culture FDA method Escheri NOT NOT No No No Sep 10 pa DETECTE DETECTE informa informa informa 2017 coli D tion in tion in tion in 12:00 [Presen source source source PM ce] in data data data Unspeci fied specime n by Culture FDA method Escheri NOT NOT No No No Sep 10 pa DETECTE DETECTE informa informa informa 2017 coli D tion in tion in tion in 12:00 Shiga-l source source source PM jb data data data toxin 1 assa Escheri NOT NOT No No No Sep 10 pa DETECTE DETECTE informa informa informa 2017 coli D tion in tion in tion in 12:00 O157:H7 source source source PM data data data [Presen ce] in Stool by Organis m specifi c culture Entamoe NOT NOT No No No Sep 10 ba DETECTE DETECTE informa informa informa 2017 histoly D tion in tion in tion in 12:00 dillan source source source PM [Presen data data data ce] in Stool by Trichro me stain Giardia NOT NOT No No No Sep 10 DETECTE DETECTE informa informa informa 2017 lamblia D tion in tion in tion in 12:00 Ag source source source PM [Presen data data data ce] in Stool Norovir NOT NOT No No No Sep 10 us Ag DETECTE DETECTE informa informa informa 2016 [Presen D tion in tion in tion in 12:00 ce] in source source source PM Stool data data data Stool NOT NOT No No No Sep 10 Plesiom DETECTE DETECTE informa informa informa 2017 onas D tion in tion in tion in 12:00 shigell source source source PM oides data data data DNA detec Rotavir NOT NOT No No No Sep 10 us RNA DETECTE DETECTE informa informa informa 2017 detecti D tion in tion in tion in 12:00 on by source source source PM probe data data data and tar Salmone NOT NOT No No No Sep 10 lla sp DETECTE DETECTE informa informa informa 2017 DNA D tion in tion in tion in 12:00 [Identi source source source PM fier] data data data in Unspeci fied specime n by Probe & target amplifi cation method Caliciv NOT NOT No No No Sep 10 irus DETECTE DETECTE informa informa informa 2016 [Identi D tion in tion in tion in 12:00 fier] source source source PM in data data data Stool by Electro n microsc opy Escheri NOT NOT No No No Sep 10 pa DETECTE DETECTE informa informa informa 2016 coli D tion in tion in tion in 12:00 [Presen source source source PM ce] in data data data Unspeci fied specime n by Culture FDA method Escheri NOT NOT No No No Sep 10 pa DETECTE DETECTE informa informa informa 2017 coli D tion in tion in tion in 12:00 SXT source source source PM gene+H7 data data data gene [Identi fier] in Unspeci fied specime n by Probe & target amplifi cation method Vibrio NOT NOT No No No Sep 10 cholera DETECTE DETECTE informa informa informa 2017 e DNA D tion in tion in tion in 12:00 [Presen source source source PM ce] in data data data Unspeci fied specime n by Probe & target amplifi cation method Vibrio NOT NOT No No No Sep 10 sp DNA DETECTE DETECTE informa informa informa 2016 [Identi D tion in tion in tion in 12:00 fier] source source source PM in data data data Unspeci fied specime n by Probe & target amplifi cation method Vibrio NOT NOT No No No Sep 10 sp DETECTE DETECTE informa informa informa 2017 identif D tion in tion in tion in 12:00 ied in source source source PM Stool data data data by Rogerio m specifi c culture Hemoglobin.gastrointestinal [Presence] in Stool Observa Value Referen Units Interpr Notes Date tion ce etation Range Hemoglo POSITIV NEG No No No Sep 10 bin.gas E informa informa informa 2017 trointe tion in tion in tion in 12:00 stinal source source source PM [Presen data data data ce] in Stool --1st specime n Amylase [Enzymatic activity/volume] in Serum or Plasma Observa Value Referen Units Interpr Notes Date tion ce etation Range Amylase 25 - 115 U/L Normal No Sep 1 [Enzymati informati 2017 5:36 c on in PM activity/ source volume] data in Serum or Plasma Lipase [Enzymatic activity/volume] in Serum or Plasma Observa Value Referen Units Interpr Notes Date tion ce etation Range Lipase 73 - 393 U/L Normal No Sep 1 [Enzymati informati 2017 5:36 c on in PM activity/ source volume] data in Serum or Plasma CBC W Auto Differential panel in Blood Observa Value Referen Units Interpr Notes Date tion ce etation Range Basophils 0 - 0.2 K/MM3 Normal No Sep 1 informati 2017 5:36 [#/volume on in PM ] in source Blood by data Automated count Basophils 0.1 - 2.0 % Normal No Sep 1 /100 informati 2016 5:36 leukocyte on in PM s in source Blood by data Automated count Eosinophi 0.0 - 0.4 K/mm3 Normal No Sep 1 ls informati 2016 5:36 [#/volume on in PM ] in source Blood by data Automated count Eosinophi 0.1 - % Normal No Sep 1 ls/100 12.0 informati 2016 5:36 leukocyte on in PM s in source Blood by data Automated count Granulocy 1.8 - 7.8 K/mm3 Normal No Sep 1 pj informati 2016 5:36 [#/volume on in PM ] in source Blood by data Automated count Granulocy 37.0 - % Normal No Sep 1 pj/100 80.0 informati 2016 5:36 leukocyte on in PM s in source Blood by data Automated count Hematocri 37.0 - % Normal No Sep 1 t [Volume 47.0 informati 2016 5:36 on in PM Fraction] source of Blood data Hemoglobi 12.2 - g/dL Normal No Sep 1 n 16.2 informati 2016 5:36 [Mass/vol on in PM ume] in source Blood data Lymphocyt 0.7 - 4.5 K/mm3 Normal No Sep 1 es informati 2017 5:36 [#/volume on in PM ] in source Unspecifi data ed specimen by Automated count Lymphocyt 10 - 50.0 % Normal No Sep 1 es inform2016 5:36 [#/volume on in PM ] in source Unspecifi data ed specimen by Automated count Erythrocy 27 - 31.2 pg Normal No Sep 1 te mean informati 2016 5:36 corpuscul on in PM ar source hemoglobi data n [Entitic mass] Erythrocy 31.8 - g/dl Normal No Sep 1 te mean 35.4 informati 2016 5:36 corpuscul on in PM ar source hemoglobi data n concentra tion [Mass/vol ume] by Automated count Erythrocy 82.2 - fl Normal No Sep 1 te mean 97.8 informati 2016 5:36 corpuscul on in PM ar volume source [Entitic data volume] by Automated count Monocytes 0.1 - 1.0 K/mm3 Normal No Sep 1 informati 2016 5:36 [#/volume on in PM ] in source Blood by data Automated count Monocytes 1.7 - 9.3 % Normal No Sep 1 /100 informati 2016 5:36 leukocyte on in PM s in source Blood by data Automated count Platelet 7.4 - fl Normal No Sep 1 mean 10.4 informati 2016 5:36 volume on in PM [Entitic source volume] data in Blood by Automated count Platelets 142 - 424 K/mm3 Normal No Sep 1 informati 2016 5:36 [#/volume on in PM ] in source Blood data Erythrocy 4.2 - 5.4 M/mm3 Normal No Sep 1 pj informati 2017 5:36 [#/volume on in PM ] in source Amniotic data fluid Erythrocy 11.5 - % Normal No Sep 1 te 17.5 informati 2016 5:36 distribut on in PM ion width source [Entitic data volume] by Automated count Leukocyte 4.8 - K/MM3 Normal No Sep 1 s 10.8 informati 2016 5:36 [#/volume on in PM ] in source Blood data Urinalysis macro (dipstick) panel in Urine Observa Value Referen Units Interpr Notes Date tion ce etation Range Appeara CLEAR CLEAR No No No May 12 nce of informa informa informa 2017 Urine tion in tion in tion in 4:47 PM source source source data data data Bilirub NEGATIV NEG No No No May 12 in E informa informa informa 2016 [Presen tion in tion in tion in 4:47 PM ce] in source source source Urine data data data by Test strip Erythro TRACE NEG No Abnorma No May 12 cytes informa l informa 2016 [Presen tion in tion in 4:47 PM ce] in source source Urine data data Color YELLOW YELLOW No No No May 12 of informa informa informa 2017 Urine tion in tion in tion in 4:47 PM source source source data data data Glucose NEG No No No May 12 [Mass/vol informati informati informati 2016 4:47 ume] in on in on in on in PM Urine by source source source Test data data data strip Ketones NEGATIV NEG mg/dL No No May 12 E informa informa 2016 [Presen tion in tion in 4:47 PM ce] in source source Urine data data by Automat ed test strip pH of 5.0 - 8.5 No Normal No Apr 16 Urine informati informati 2017 4:47 on in on in PM source source data data Protein NEG mg/dL No No Apr 16 [Mass/vol informati informati 2017 4:47 ume] in on in on in PM Urine by source source Automated data data test strip Specific 1.005 - No Normal No May 12 gravity 1.030 informati informati 2017 4:47 of Urine on in on in PM source source data data Leukocy TRACE NEG No Abnorma No May 12 te informa l informa 2017 esteras tion in tion in 4:47 PM e source source [Presen data data ce] in Urine by Automat ed test strip Nitrite NEGATIV NEG No No No May 12 E informa informa informa 2016 [Presen tion in tion in tion in 4:47 PM ce] in source source source Urine data data data by Test strip Urobili 0.2 NEG E.U./dL No No May 12 nogen informa informa 2016 [Presen tion in tion in 4:47 PM ce] in source source Urine data data by Test strip
--- OUTSIDE RECORDS SUMMARY | 2017-09-23 12:59 | External Medical Summary Rpt | CCD ---
Demographics Preferred Language [place] Marital Status Unknown Latter Day Affiliation Unknown Race Unknown Ethnic Group Unknown Author Author , ISABELLE WALTON Address Unknown Phone Immunization No patient found.
--- NOTE | 2017-09-23 13:50 | Urgent Treatment Center Report ---
History of Present Issue Date/Time Seen by Provider 09/23/17 1342 Visit Reason Pt arrived:Walked Presenting Problem:RIGHT KNEE PAIN Location if Accident: Onset of symptoms date/time:09/22/17 or onset unknown for: Have you (or family members/close friends) recently traveled outside the [place]? N If Yes, where/when: Have you had exposure to infectious disease within the past month? TB? Other? Specify: Source patient, RN notes reviewed Exam Limitations no limitations Comment 57-year-old female presents for RIGHT knee pain. Patient states she was moving furniture in a chair came back and hit her knee. ALLERGIES Coded Allergies: Penicillins (02/19/17) hydrocodone (02/19/17) Home Medications Active Scripts RANITIDINE HCL (Zantac) 300 MG PO DAILY #30 TAB Prov: 08/06/17 NAPROXEN (NAPROSYN 500MG TAB) 500 MG PO BID #14 TAB Prov: 06/12/17 Reported Medications Ranitidine Hcl (Zantac) 75 MG PO DAILY Albuterol (Albuterol-Hfa Inhaler) 1 PUFF IH BID #1 INH MULTIVITAMIN (Multiple Vitamins) 1 TAB PO DAILY Sumatriptan Succinate 100 MG PO PRN PRN MIGRAINE #9 PROPRANOLOL HCL (Propranolol Hydrochloride) 60 MG PO DAILY #30 History Medical History General CAD? No Angina: Yes [place]: No Hypertension? Yes Hyperlipidemia? No CHF? No DVT? No PE? No COPD? No Asthma? Yes Anemia? No GERD? No Gastric ulcers? No GI Bleed? No Hernia? Yes Thyroid Problems? No Hypothyroidism? No CVA? No Seizures? No Diabetes? No Renal Insuffiency? No UTI? Yes Stones? Yes BPH? No GB Disease: No Nephritic Syndrome? No Asplenia? No Hepatitis? No Sickle Cell Disease? No Arthritis? Yes Migraines? No Cataracts? No Glaucoma? No MRSA? No HIV? No TB? No Anxiety? Yes Depression? Yes Cancer? Yes Site: CERVICAL More? No Immunization HX DT/Tetanus 11/21/2014 Flu NEVER Pneumonia NEVER Surgical Hx Previous Surgery?Y CERVICAL CANCER KIDNEY STONES CHOLECYSTECTOMY Hernia Repair Family History Family HX Diabetes Yes CAD Yes Hypertension Yes Hyperlipidemia Yes Cancer Yes TB No Social History Smoking Hx Smoker: Never Smoker Tobacco: No Type N/A Alcohol Alcohol: No Review of Systems All Other Systems Reviewed and Negative Musculoskeletal see HPI, joint pain Physical Exam Vital Signs Vital Signs Date Time Temp Pulse Resp B/P Pulse O2 O2 Flow FiO2 Ox Delivery Rate 09/23 1308 97.8 56 18 128/80 99 - WBC >12,000 or <4,000 or 10% bands? 2 or more SIRS Criteria Met? B/P:128/80 MAP:96 Creatinine >2.0? UA output<0.5ml/kg/hr for 2 hrs? Platelet count >100,000? Lactate >2.0mmol/1? INR >1.2 or PTT > than 60 sec? Evidence of Organ Dysfunction? Provider documented clinical suspician of infection? Sepsis Criteria Count: 0 Sepsis Risk: General Appearance normal appearance, no apparent distress Eye Exam - bilateral eye normal exam, bilateral eye PERRL, bilateral eye EOMI Ear, Nose, Throat hearing grossly normal, normal ENT inspection, normal pharynx Neck normal inspection, full range of motion Respiratory Status Yes: trachea midline, chest symmetrical, non tender chest. No: respiratory distress. Lung Sounds bilateral: normal breath sounds, lungs clear. Cardiovascular normal exam Neurologic alert, normal exam, oriented x 3 Medical Decision Making LABS/Meds/Orders Pt receiving controlled substance in ED? No Results/Orders Orders Procedure Date/time Status KNEE-3 VIEWS-RT 09/23 1259 Active XRAY/CT/US XRAY/CT/US XRAY knee XR interpretation by reviewed by me Xray Results normal/NAD, no fracture seen Departure Departure Time of Disposition 1346 Disposition DC Home or Self Care(routine) Clinical Impression Primary Impression: Knee sprain Qualifiers: Encounter type: initial encounter Involved ligament of knee: unspecified ligament Laterality: right Qualified Code: S83.91XA - Sprain of unspecified site of right knee, initial encounter Condition STABLE Referrals Ruben OLMOS,Mir Barry (Family) Manolo OMLOS,Cezar Patient Instructions How to Use an Elastic Bandage-Knee Sprain, Knee Sprain Additional Instructions Follow-up with PCP this week if no improvement Tylenol ibuprofen as needed for pain Rupert wrap keep extremity elevated Ice 20 minutes removed may repeat for comfort If no improvement or worsening return or be seen in the ER Discharge Counseling Counseled pt/family regarding diagnosis, test results, home care, follow up needs at 1353
[2017-09-23 13:51] VITALS: BP 128/80
--- NOTE | 2017-09-23 14:45 | RADIOLOGY REPORT PS360 ---
KNEE-3 VIEWS-RT HISTORY: PAIN ORDERING PHYSICIAN: Gifty Connor PATIENT AGE: 57 years COMPARISON: None FINDINGS: No fracture or dislocation. No lytic or blastic change. Normal mineralization. There are minimal osteoarthritic changes with mild spurring of the tibial spines and infrapatellar Small suprapatellar effusion IMPRESSION: Minimal osteoarthritic change with small suprapatellar effusion
== END 2017-09-23 13:55 | disposition home or self-care (01) ==
LOC: UTC 12:48
DX: S83.91XA Sprain of unspecified site of right knee, initial encounter (principal); I10 Essential (primary) hypertension; J45.909 Unspecified asthma, uncomplicated; F41.8 Other specified anxiety disorders; Z88.0 Allergy status to penicillin; Z88.6 Allergy status to analgesic agent